=== PATIENT | female | born 1990 | race African-American/Black ===

== ENCOUNTER 2017-10-13 21:43 | Emergency (ER) | payer OTHER ==
[2017-10-13 22:03] VITALS: BMI 24.0
[2017-10-13] MEDS ORDERED: MAG HYDROX/AL HYDROX/SIMETH 30 ML UNIT-DOSE CUP PO ONE (22:28)
[2017-10-13] MEDS ORDERED: FAMOTIDINE 20 MG/50 ML IVPB 20 MG/50 ML MG IVPB ONE ×2 (22:28→23:01)
--- NOTE | 2017-10-13 22:35 | PDOC ---
History of Present Illness - History of Present Illness Initial Comments: 26 yo F with h/o substance abuse, bipolar disorder, previous psych admissions who p/w SOB. Patient reports daily intermittent spells throughout the day of SOB , globus sensation, lightheadedness, chest tightness, palpitations, diaphoresis , worse at night and worse with social stressors. Symptom onset 09/26/17 following crack/cocaine inhalation. Denies LOC,head/neck/back trauma. Denies SI/ HI. Denies F/C, N/V,orthopnea, PND, dysphagia, leg swelling/leg pain, pleuritic pain , CP, SOB, abdominal pain, diarrhea, constipation, urinary complaints, weakness , lightheadedness, sensory changes. PMHx: as noted above. Denies h/o PE/DVT. ROS: as noted above SHx: Alcohol intake beginning at age [age] years old till 03/05/17. Cannabis at 17 years old till 02/27 17. Cocaine since , till 2015. <Miguel Angel Judd - Last Filed: 10/14/17 00:11> <Pedro Owen - Last Filed: 10/14/17 02:01> - General Chief Complaint: Psychiatric Stated Complaint: S.O.B Time Seen by Provider: 10/13/17 22:25 Past History - Social History Smoking Status: Never smoked <Miguel Angel Judd - Last Filed: 10/14/17 00:11> <Pedro Owen - Last Filed: 10/14/17 02:01> - Past Medical History Allergies/Adverse Reactions: Allergies No Known Allergies Allergy (Verified 10/13/17 22:00) Home Medications: Ambulatory Orders Quetiapine Fumarate [Seroquel -] 200 mg PO HS #30 tab 03/20/17 Quetiapine Fumarate [Seroquel -] 200 mg PO HS #30 tab 03/20/17 *Review of Systems - Review of Systems Comments:: 10/13/17 22:34 GENERAL/CONSTITUTIONAL: No fever or chills. No weakness. HEAD, EYES, EARS, NOSE AND THROAT: No change in vision. No ear pain or discharge. No sore throat. CARDIOVASCULAR: No chest pain or shortness of breath RESPIRATORY: No cough, wheezing, or hemoptysis. GASTROINTESTINAL: No nausea, vomiting, diarrhea or constipation. GENITOURINARY: No dysuria, frequency, or change in urination. MUSCULOSKELETAL: No joint or muscle swelling or pain. No neck or back pain. SKIN: No rash NEUROLOGIC: No headache, vertigo, loss of consciousness, or change in strength/ sensation. ENDOCRINE: No increased thirst. No abnormal weight change HEMATOLOGIC/LYMPHATIC: No anemia, easy bleeding, or history of blood clots. ALLERGIC/IMMUNOLOGIC: No hives or skin allergy. <Miguel Angel Judd - Last Filed: 10/14/17 00:11> *Physical Exam - Vital Signs Last Vital Signs Temp Pulse Resp BP Pulse Ox 98.1 F 90 20 113/63 100 10/13/17 22:01 10/13/17 22:01 10/13/17 22:01 10/13/17 22:01 10/13/17 22:01 - Physical Exam Comments: 10/13/17 22:34 GENERAL: Awake, alert, and fully oriented, in no acute distress HEAD: No signs of trauma, normocephalic, atraumatic EYES: PERRLA, EOMI, sclera anicteric, conjunctiva clear ENT: Auricles normal inspection, hearing grossly normal, nares patent, oropharynx clear without exudates. Moist mucosa NECK: Normal ROM, supple, no lymphadenopathy, JVD, or masses LUNGS: No distress, speaks full sentences, clear to auscultation bilaterally HEART: Regular rate and rhythm, normal S1 and S2, no murmurs, rubs or gallops, peripheral pulses normal and equal bilaterally. ABDOMEN: Soft, nontender, normoactive bowel sounds. No guarding, no rebound. No masses EXTREMITIES : Normal inspection, Normal range of motion, no edema. No clubbing or cyanosis. NEUROLOGICAL: Cranial nerves II through XII grossly intact. Normal speech, normal gait, no focal sensorimotor deficits SKIN: Warm, Dry, normal turgor, no rashes or lesions noted <Miguel Angel Judd - Last Filed: 10/14/17 00:11> - Vital Signs Last Vital Signs Temp Pulse Resp BP Pulse Ox 98.1 F 90 20 113/63 100 10/13/17 22:01 10/13/17 22:01 10/13/17 22:01 10/13/17 22:01 10/13/17 22:01 <Pedro Owen - Last Filed: 10/14/17 02:01> Plan - Laboratory CBC & Chemistry Diagram: 10/14/17 00:30 10/14/17 00:30 Lab/Micro Results: 10/14/17 10/14/17 10/14/17 00:30 00:30 00:30 PT with INR 11.60 INR 1.03 Sodium 138 Potassium 3.7 Chloride 102 Carbon Dioxide 28 Anion Gap 8 BUN 12 Creatinine 0.9 Creat Clearance w eGFR > 60 Random Glucose 81 Calcium 8.9 Total Bilirubin 0.3 AST 23 ALT 24 Alkaline Phosphatase 101 Total Protein 8.3 H Albumin 4.1 TSH Urine Color Urine Appearance Urine pH Ur Specific [place] Urine Protein Urine Glucose (UA) Urine Ketones Urine Blood Urine Nitrite Urine Bilirubin Urine Urobilinogen Ur Leukocyte Esterase Urine WBC (Auto) Urine RBC (Auto) Ur Epithelial Cells Urine Mucus Urine HCG, Qual Opiates Screen Negative Methadone Screen Negative Barbiturate Screen Negative Phencyclidine Screen Negative Ur Amphetamines Screen Negative MDMA (Ecstasy) Screen Negative Benzodiazepines Screen Negative Cocaine Screen Negative U Marijuana (THC) Screen Negative 10/14/17 10/14/17 00:30 00:30 PT with INR INR Sodium Potassium Chloride Carbon Dioxide Anion Gap BUN Creatinine Creat Clearance w eGFR Random Glucose Calcium Total Bilirubin AST ALT Alkaline Phosphatase Total Protein Albumin TSH 1.76 Urine Color Yellow Urine Appearance Cloudy Urine pH 6.0 Ur Specific [place] 1.017 Urine Protein Negative Urine Glucose (UA) Negative Urine Ketones Negative Urine Blood Negative Urine Nitrite Negative Urine Bilirubin Negative Urine Urobilinogen Negative Ur Leukocyte Esterase 1+ H Urine WBC (Auto) 4 Urine RBC (Auto) 2 Ur Epithelial Cells Many Urine Mucus Rare Urine HCG, Qual Negative Opiates Screen Methadone Screen Barbiturate Screen Phencyclidine Screen Ur Amphetamines Screen MDMA (Ecstasy) Screen Benzodiazepines Screen Cocaine Screen U Marijuana (THC) Screen 10/14/17 00:30 RBC 4.29 MCV 88.6 MCHC 33.5 RDW 14.1 MPV 8.6 Neutrophils % 63.6 Lymphocytes % 28.4 Monocytes % 5.4 Eosinophils % 2.2 Basophils % 0.4 - Radiology Study(ies) Orders: Category Date Time Status CHEST PA & LAT [RAD] Stat Radiology 10/14/17 01:23 Taken - Medications Given in the ED: ED Medications Discontinued Medications Generic Name Dose Route Start Last Admin Trade Name Freq PRN Reason Stop Dose Admin Al Hydroxide/Mg Hydroxide 30 ml 10/13/17 22:28 10/13/17 22:30 Mylanta Oral Suspension - PO 10/13/17 22:29 30 ml ONCE ONE Administration Famotidine/Sodium Chloride 20 mg in 50 mls @ 100 mls/hr 10/13/17 22:28 22:30 Pepcid 20 Mg Premixed Ivpb - IVPB 10/13/17 22:57 100 mls/hr ONCE ONE Administration <Pedro Owen - Last Filed: 10/14/17 02:01> *DC/Admit/Observation/Transfer - Attestations Physician Attestion: 10/13/17 22:35 I attest to the information provided in this note. <Miguel Angel Judd - Last Filed: 10/14/17 00:11> <Pedro Owen - Last Filed: 10/14/17 02:01> Diagnosis at time of Disposition: Lightheadedness, Palpitations - Discharge Dispostion Disposition: HOME Condition at time of disposition: Stable - Referrals Referrals: Ilya Gomez MD [Staff Physician] - - Patient Instructions Printed Discharge Instructions: DI for Palpitations Additional Instructions: Activity as tolerated. Stay hydrated. Blood tests, an EKG, and a CXR showed no acute abnormalities. While anxiety might be a cause, further heart evaluations are needed. Continue your medications as previously prescribed by your physician. You should follow up with your primary doctor as soon as possible regarding today's emergency department visit. You should also see a street light mechanic for an echocardiogram and Holter monitor. Return to the emergency department for any new or concerning symptoms, particularly persistent or worsening pain or palpitations, difficulty breathing , fevers or chills, cough. Medical Decision Making - Medical Decision Making 10/13/17 23:44 26 yo F with h/o substance abuse, bipolar disorder, previous psych admissions who p/w SOB. VSS, AF, A&Ox3. Symptoms likely 2/2 anxiety related disorder, or panic disorder. Low suspicion ACS/GA or PNA. PERC NEG. Will assess for dysarrythmias, thyroid dysfunction, electrolyte abnml, toxic or metabolic derangements,acid-base disturbances, or underlying infection. ED Course: CBC, CMP, TSH, PT/INR, Cardiac Pr. EKG, CXR 10/14/17 00:11 Patient signed out to night team. Follow up labs, imaging, EKG. <Miguel Angel Judd - Last Filed: 10/14/17 00:11>
[2017-10-13] MEDS ORDERED: MAG HYDROX/AL HYDROX/SIMETH 30 ML UNIT-DOSE CUP ONE (23:01)
--- NOTE | 2017-10-14 00:19 | PDOC ---
Attending Attestation - Resident Resident Name: Celio Juddson - ED Attending Attestation I have performed the following: I have examined & evaluated the patient, The case was reviewed & discussed with the resident, I agree w/resident's findings & plan - HPI HPI: 10/14/17 00:15 26-year-old female with history of extensive crack/cocaine use presents with nonspecific symptoms of palpitations and shortness of breath ongoing for several weeks, worse in the last few days. Last crack/cocaine use was September 26, reports symptoms of palpitations with bilateral hand tingling and throat closing , admits to stressors at work, episode occurred tonight at home so she presents for evaluation. She does not have reproducible exertional chest pain or dyspnea , no recent cough, no unilateral leg swelling or cramping. No family history of early heart disease. To her knowledge, she has never had any heart injury from her crack/cocaine use. - Physicial Exam PE: 10/14/17 00:17 Vital signs are normal EKG is normal Patient is well-appearing, ambulating comfortably in the emergency Department No acute psychiatric issues Cardiopulmonary exam is normal No edema or calf tenderness - Medical Decision Making 10/14/17 00:17 26-year-old female with history of crack/cocaine use presents with nonspecific symptoms ongoing for several weeks, worse over the last few days. Presentation seems most consistent with anxiety/panic attack given the globus sensation in her throat, palpitations, hand tingling. No ACS risk factors other than her crack/cocaine use, and she has not used any since 09/26. EKG is normal Labs Chest x-ray If above is within normal limits, can be discharged to follow up with cardiology as outpatient. 10/14/17 01:57 labs wnl, including tsh and utox. pt remained well appearing throughout ED stay, CXR wnl on my prelim review. pt reassured, agrees with d/c plan to f/u with cardiology for outpt echo and holter. Understands return criteria. Heart Score/ECG Review - History History: Slightly suspicious - Electrocardiogram EKG: Normal - Age Age: </= 45 - Risk Factors Based on the list above the patient has:: No risk factors known - Troponin Troponin: </= normal limit - Score Heart Score - Total: 0 #1 ECG reviewed & interpreted by me at: 00:15 General ECG Interpretation: Sinus Rhythm, Normal Rate (79), Normal Intervals ( qtc 435), No acute ischemic changes
[2017-10-14 01:01] LABS: BASO % 0.4 % (0-2.0); EOS % 2.2 % (0-4.5); HEMOGLOBIN 12.7 GM/dL (10.7-15.3); LYMPH % 28.4 % (8-40); MCH 29.7 pg (25.7-33.7); MCHC 33.5 g/dl (32.0-36.0); MEAN CELL VOLUME 88.6 fl (80-96); MEAN PLT VOLUME 8.6 fl (7.5-11.1); MONO % 5.4 % (3.8-10.2); NEUT % 63.6 % (42.8-82.8); PLATELET COUNT 315 K/MM3 (134-434); RBC 4.29 M/mm3 (3.60-5.2); RDW 14.1 % (11.6-15.6); WHITE BLOOD COUNT 10.2 K/mm3 (4.0-10.0)
[2017-10-14 01:03] LABS: HCG,QUALITATIVE URINE NEGATIVE; URINE APPEARANCE CLOUDY; URINE BILIRUBIN NEGATIVE (<2.0 mg/dL); URINE COLOR YELLOW; URINE GLUCOSE (UA) NEGATIVE (NEGATIVE); URINE KETONE NEGATIVE (NEGATIVE); URINE NITRITE NEGATIVE (NEGATIVE); URINE PROTEIN NEGATIVE (NEGATIVE); URINE UROBILINOGEN NEGATIVE mg/dL (0.2-1.0)
[2017-10-14 01:04] LABS: URINE LEUK ESTERASE 1+ (NEGATIVE)
[2017-10-14 01:07] LABS: EPI CELLS MANY /HPF (FEW); URINE MUCUS RARE
[2017-10-14 01:15] LABS: INR 1.03 (0.82-1.09); PROTHROMBIN TIME (PATIENT) 11.6 SEC (9.7-13.0)
[2017-10-14 01:20] LABS: ALBUMIN 4.1 g/dl (3.4-5.0); ALK PHOS 101 U/L (45-117); ANION GAP 8 (8-16); BILIRUBIN,TOTAL 0.3 mg/dL (0.2-1.0); BLOOD UREA NITROGEN 12 mg/dL (7-18); CALCIUM 8.9 mg/dL (8.5-10.1); CHLORIDE 102 mmol/L (98-107); CO2 28 mmol/L (21-32); CREATININE 0.9 mg/dL (0.55-1.02); GLUCOSE,RANDOM 81 mg/dL (74-106); POTASSIUM 3.7 mmol/L (3.5-5.1); SGOT/AST 23 U/L (15-37); SGPT/ALT 24 U/L (12-78); SODIUM 138 mmol/L (136-145); TOT PROT 8.3 g/dl (6.4-8.2)
[2017-10-14 01:24] LABS: COCAINE, UR NEGATIVE ng/ml (CUTOFF=300); METHADONE, UR NEGATIVE ng/ml (CUTOFF=300); OPIATES, URI NEGATIVE ng/ml (CUTOFF=300); PHENCYCLIDINE,URINE NEGATIVE ng/ml (CUTOFF=25); URINE AMPHETAMINES NEGATIVE ng/ml (CUTOFF=500); URINE BARBITURATES NEGATIVE ng/ml (CUTOFF=200); URINE BENZODIAZEPINES NEGATIVE ng/ml (CUTOFF=200)
[2017-10-14 02:21] VITALS: BP 122/81; PULSE 71; TEMP 97.9
--- NOTE | 2017-10-14 08:56 | EKG ---
Test Reason : Blood Pressure : / mmHG Vent. Rate : 079 BPM Atrial Rate : 079 BPM P-R Int : 142 ms QRS Dur : 074 ms QT Int : 380 ms P-R-T Axes : 032 054 026 degrees QTc Int : 435 ms NORMAL SINUS RHYTHM NORMAL ECG NO PREVIOUS ECGS AVAILABLE Confirmed by LUDWIN LOPEZ, KELSIE ([id number]) on 10/14/2017 8:56:09 AM Referred By: Confirmed By:KELSIE MASCORRO MD
== END 2017-10-14 02:16 | disposition home or self-care (01) ==
LOC: JER 21:43
PROC: 3E033GC Introduction of Other Therapeutic Substance into Peripheral Vein, Percutaneous Approach (ICD-10-PCS; principal; 2017-10-13)
DX: R00.2 Palpitations (principal); R42 Dizziness and giddiness; F31.9 Bipolar disorder, unspecified; F14.10 Cocaine abuse, uncomplicated
CPT/HCPCS: 36415; 71046-TC-FY; 80053; 80307; 81003; 81015; 84443; 84703; 85025; 85610; 93005; 93010; 96365; 99282-25

== ENCOUNTER 2017-11-15 14:51 | Emergency (ER) | payer OTHER ==
[2017-11-15 15:20] VITALS: BP 105/70; PULSE 84; TEMP 98.6; BMI 23.6
--- NOTE | 2017-11-15 15:28 | PDOC ---
Rapid Medical Evaluation Time Seen by Provider: 11/15/17 15:16 Medical Evaluation: Allergies Allergy/AdvReac Type Severity Reaction Status Date / Time No Known Allergies Allergy Verified 10/13/17 22:00 I have performed a brief in-person evaluation of this patient. The patient presents with a chief complaint of: SOB since 09/26 Pertinent physical exam findings: CTAB I have ordered the following: hcg The patient will proceed to the ED for further evaluation. Discharge Disposition - Diagnosis SOB (shortness of breath) - Referrals - Patient Instructions - Post Discharge Activity
--- NOTE | 2017-11-15 16:16 | PDOC ---
History of Present Illness - General Chief Complaint: Shortness of Breath Stated Complaint: Shortness of Breath Time Seen by Provider: 11/15/17 15:16 Past History - Past Medical History Allergies/Adverse Reactions: Allergies Allergy/AdvReac Type Severity Reaction Status Date / Time No Known Allergies Allergy Verified 11/15/17 15:18 Home Medications: Ambulatory Orders NK [No Known Home Medication] 11/15/17 COPD: No Psychiatric Problems: Yes (Anxiety) - Suicide/Smoking/Psychosocial Hx Smoking History: Never smoked Have you smoked in the past 12 months: No Information on smoking cessation initiated: No Hx Alcohol Use: No Drug/Substance Use Hx: No Substance Use Type: None *Physical Exam - Vital Signs Last Vital Signs Temp Pulse Resp BP Pulse Ox 98.6 F 84 20 105/70 100 11/15/17 15:18 11/15/17 15:18 11/15/17 15:18 11/15/17 15:18 11/15/17 15:18 ED Treatment Course - ADDITIONAL ORDERS Additional order review: Laboratory Results 11/15/17 15:21 Urine HCG, Qual Negative *DC/Admit/Observation/Transfer Diagnosis at time of Disposition: SOB (shortness of breath) - Referrals - Patient Instructions - Post Discharge Activity
--- NOTE | 2017-11-15 16:35 | PDOC ---
History of Present Illness - General Chief Complaint: Shortness of Breath Stated Complaint: Shortness of Breath Time Seen by Provider: 11/15/17 15:16 History Source: Patient Exam Limitations: No Limitations - History of Present Illness Initial Comments: 11/15/17 16:26 26-year-old female presents to emergency with complaints of difficulty swallowing secondary to burning sensation stating she can't catch her breath sometimes when eating. Patient states this concerned since she used to smoke crack years ago and smokes cigarettes and unsure if she lost that. Patient denies fever, chills, left sided chest pain, weakness, or dizziness. Timing/Duration: other Severity: mild Associated Symptoms: reports: other Past History - Travel Traveled outside of the country in the last 30 days: No - Past Medical History Allergies/Adverse Reactions: Allergies Allergy/AdvReac Type Severity Reaction Status Date / Time No Known Allergies Allergy Verified 11/15/17 15:18 Home Medications: Ambulatory Orders NK [No Known Home Medication] 11/15/17 COPD: No Psychiatric Problems: Yes (Anxiety) - Suicide/Smoking/Psychosocial Hx Smoking History: Never smoked Have you smoked in the past 12 months: No Information on smoking cessation initiated: No Hx Alcohol Use: No Drug/Substance Use Hx: No Substance Use Type: None Patient Lives Alone: No Lives with/in: parents Review of Systems - Review of Systems Able to Perform ROS?: No Constitutional: No: Symptoms Reported HEENTM: Yes: Throat Pain Respiratory: No: Cough, SOB with Exertion Cardiac (ROS): No: Symptoms Reported ABD/GI: No: Symptoms Reported : No: Symptoms Reported Musculoskeletal: No: Symptoms Reported Integumentary: No: Symptoms Reported Neurological: No: Symptoms reported *Physical Exam - Vital Signs Last Vital Signs Temp Pulse Resp BP Pulse Ox 98.6 F 84 20 105/70 100 11/15/17 15:18 11/15/17 15:18 11/15/17 15:18 11/15/17 15:18 11/15/17 15:18 - Physical Exam General Appearance: Yes: Nourished, Appropriately Dressed. No: Apparent Distress HEENT: positive: TMs Normal, Pharynx Normal. negative: Pale Conjunctivae Neck: positive: Normal Thyroid, Supple Respiratory/Chest: positive: Lungs Clear, Normal Breath Sounds. negative: Chest Tender, Respiratory Distress, Accessory Muscle Use Cardiovascular: positive: Regular Rhythm, Regular Rate. negative: Murmur Gastrointestinal/Abdominal: positive: Soft. negative: Tenderness Extremity: positive: Normal Capillary Refill. negative: Pedal Edema Integumentary: positive: Normal Color, Warm, Moist Neurologic: positive: Motor Strength 5/5 (ambulatory) ED Treatment Course - ADDITIONAL ORDERS Additional order review: Laboratory Results 11/15/17 15:21 Urine HCG, Qual Negative Medical Decision Making - Medical Decision Making 11/15/17 16:35 Patient here with complaints of burning to her throat along with causing her difficulty breathing during episodes. Patient is concerned since she states she smokes cigarettes along with crack and cocaine concerning that she might of scarred her throat. Patient on exam that she had no chest tenderness as initially stated in triage. Patient exam had no reproducible pain. No erythema or discoloration of the posterior palate no adenopathy. Lungs clear. Patient will be given referral to ENT. Patient also we given a trial dose of Zantac to see if that alleviates her symptoms since she states symptoms are worse after eating and describes a burning sensation to her throat/upper midchest. *DC/Admit/Observation/Transfer Diagnosis at time of Disposition: Throat burning - Discharge Dispostion Disposition: HOME Condition at time of disposition: Good - Referrals Referrals: Jose Staples MD [Staff Physician] - - Patient Instructions Printed Discharge Instructions: DI for Gastroesophageal Reflux Disease (GERD) Additional Instructions: Please follow up with referred physician and take Zantac as prescribed. Please avoid spicy greasy food. Drink plenty of water and sit upright for half hour after meals to decrease the acid in the throat and upper chest. If symptoms do not improve despite referral and recommendations she may return to the ED. Otherwise follow up with the primary care doctor. - Post Discharge Activity
== END 2017-11-15 16:56 | disposition home or self-care (01) ==
LOC: JERFT 14:51
DX: R07.0 Pain in throat (principal)
CPT/HCPCS: 84703; 99281-25

== ENCOUNTER 2017-11-23 21:05 | Emergency (ER) | payer OTHER ==
--- NOTE | 2017-11-23 21:27 | PDOC ---
History of Present Illness - General Chief Complaint: Rash Stated Complaint: Allergic Reaction Time Seen by Provider: 11/23/17 21:27 History Source: Patient Exam Limitations: No Limitations - History of Present Illness Initial Comments: 11/23/17 21:55 Ms. Garcia is a 26 yo F with a hx of Past History - Past Medical History Allergies/Adverse Reactions: Allergies Allergy/AdvReac Type Severity Reaction Status Date / Time No Known Allergies Allergy Verified 11/23/17 21:27 Home Medications: Ambulatory Orders Famotidine [Pepcid] 20 mg PO DAILY #30 tablet 11/15/17 Budesonide/Formeterol Fumarate [SYMBICORT 160/4.5mcg -] 2 inh PO BID 11/23/17 Montelukast Sodium [Singulair] 10 mg PO DAILY 11/23/17 COPD: No Psychiatric Problems: Yes (Anxiety) - Suicide/Smoking/Psychosocial Hx Smoking History: Never smoked Have you smoked in the past 12 months: No Hx Alcohol Use: No Drug/Substance Use Hx: No Substance Use Type: None *DC/Admit/Observation/Transfer Diagnosis at time of Disposition: Shortness of breath - Discharge Dispostion Disposition: HOME Decision to Admit order: No - Referrals Referrals: Pk Oviedo MD, MD [Staff Physician] - - Patient Instructions Printed Discharge Instructions: DI for Shortness of Breath Additional Instructions: You have been diagnosed with shortness of breath of chronic nature. Chest xray did not show acute pathologies indicative of an emergency. Please follow up with your primary care doctor, your title i teacher Dr. Gordon, and our referred title i teacher Dr. Oviedo for follow up. Your care is not complete without this follow up. Please use your medications as prescribed. If your symptoms worsen or new concerning symptoms arise, please return to the emergency department immediately. - Post Discharge Activity
[2017-11-23 21:28] VITALS: BP 114/62; PULSE 82; TEMP 98.8; BMI 23.8
[2017-11-23] MEDS ORDERED: diphenhydrAMINE HCL 25 MG CAPSULE (FP) PO ONE ×2 (22:02→22:53)
[2017-11-23] MEDS ORDERED: ALBUTEROL SO4 2.5/IPRATROPIUM 0.5 INH SOL 3 ML VIAL.NEB. NEB ONE ×2 (22:02→22:53)
--- NOTE | 2017-11-23 22:47 | PDOC ---
Attending Attestation - HPI HPI: 11/23/17 22:59 The patient is a 26 year old female, with no significant past medical history, who presents to the emergency department with,shortness of breath for 2 months. The patient is currently being worked up by her PCP, Dr. Gordon, for her symptoms. He advised her to report to the ED for a chest x-ray. She reports associated chest pain and increased anxiety. The patient reports a rash on her left forearm which is itchy. She believes she acquired it sleeping in dirty areas. She recently stopped smoking crack cocaine and cigarettes 2 months ago. She denies recent fevers, chills, headache or dizziness. She denies recent nausea, vomit, diarrhea or constipation. She denies recent dysuria, frequency, urgency or hematuria. Allergies: NKA Past surgical history: None reported. Social history:Former smoker (Quit 2 months ago.) Former crack cocaine abuse ( Quit 2 months ago.) Primary Care Physician: Dr. Gordon - Physicial Exam PE: 11/23/17 22:59 GENERAL: Awake, alert, and fully oriented, in no acute distress HEAD: No signs of trauma EYES: PERRLA, EOMI, sclera anicteric, conjunctiva clear ENT: Auricles normal inspection, hearing grossly normal, nares patent, oropharynx clear without exudates. Moist mucosa NECK: Normal ROM, supple, no lymphadenopathy, JVD, or masses LUNGS: Breath sounds equal, clear to auscultation bilaterally. No wheezes, and no crackles HEART: Regular rate and rhythm, normal S1 and S2, no murmurs, rubs or gallops ABDOMEN: Soft, nontender, normoactive bowel sounds. No guarding, no rebound. No masses EXTREMITIES: Normal range of motion, no edema. No clubbing or cyanosis. No cords, erythema, or tenderness NEUROLOGICAL: Cranial nerves II through XII grossly intact. Normal speech, normal gait SKIN: Warm, Dry, normal turgor, no rashes or lesions noted. <Karl Turner - Last Filed: 11/23/17 22:59> - Resident Resident Name: Jaquan Stewart - ED Attending Attestation I have performed the following: I have examined & evaluated the patient, The case was reviewed & discussed with the resident, I agree w/resident's findings & plan, Exceptions are as noted - Medical Decision Making 11/23/17 22:45 A portion of this note was written by my scribe, under my supervision. Vital Signs Temp Pulse Resp BP Pulse Ox 98.8 F 82 18 114/62 100 11/23/17 21:10 11/23/17 21:10 11/23/17 21:10 11/23/17 21:10 11/23/17 21:10 26 year old F c/ hx prior polysubstance abuse sent in by her doctor, Dr. Gordon, for a chest xray. The patient reports 2 months of chronic SOB where she is being worked up as an outpatient. The patient has been given a prescription of symbicort, to which she has not taken. Used to smoke crack cocaine and cigarettes, but reportedly stopped prior to the incident. Denies any fevers, chills, cough, chest pain. States that she spoke to her doctor, who advised pt to go to the ER for a chest xray. Otherwise, no other acute findings. The patient is well-appearing and nontoxic. This is likely a chronic finding. Will obtain a chest xray and trial nebulizers. If the chest xray is negative, will have patient follow up as an outpatient for further management. 11/24/17 01:17 Chest xray reviewed by me, pending official radiology read. No acute changes. Will d/c patient home. <Shane Pérez - Last Filed: 11/24/17 01:18> Attestations - Attestations 11/23/17 22:59 Documentation prepared by Karl Turner, acting as medical imaging technician for Shane Pérez MD. <Karl Turner - Last Filed: 11/23/17 22:59>
== END 2017-11-24 01:54 | disposition home or self-care (01) ==
LOC: JER 21:05
PROC: 3E0F7GC Introduction of Other Therapeutic Substance into Respiratory Tract, Via Natural or Artificial Opening (ICD-10-PCS; principal; 2017-11-23)
DX: R06.02 Shortness of breath (principal); Z59.0 Homelessness
CPT/HCPCS: 71046-TC-FY; 84703; 94640; 99282-25; J7620

== ENCOUNTER 2018-02-08 18:59 | Emergency (ER) | payer OTHER ==
--- NOTE | 2018-02-08 19:01 | PDOC ---
Rapid Medical Evaluation Chief Complaint: Sore Throat Time Seen by Provider: 02/08/18 19:00 Medical Evaluation: Allergies Allergy/AdvReac Type Severity Reaction Status Date / Time No Known Allergies Allergy Verified 10/18/17 20:08 02/08/18 19:02 c/o sore throat pain since 09/26. denies fever/ chills . LMP: 10/2017. had + urine test with MD office. " I think i have a STD in my throat." denies smoking crack since 09/26 PE: patient alert ox3 ;throat clear. A: throat pain P; patient to the ER for further management of care. Discharge Disposition - Diagnosis Throat pain - Referrals - Patient Instructions - Post Discharge Activity
[2018-02-08 19:05] VITALS: BP 103/66; PULSE 58; BMI 21.5
[2018-02-08 19:06] VITALS: TEMP 98.6
[2018-02-08 20:13] LABS: HCG,QUALITATIVE URINE Positive
[2018-02-08 20:15] LABS: URINE APPEARANCE SLCLOUDY; URINE BILIRUBIN NEGATIVE (<2.0 mg/dL); URINE COLOR LTYELLOW; URINE GLUCOSE (UA) NEGATIVE (NEGATIVE); URINE KETONE NEGATIVE (NEGATIVE); URINE LEUK ESTERASE TRACE (NEGATIVE); URINE NITRITE POSITIVE (NEGATIVE); URINE PROTEIN NEGATIVE (NEGATIVE); URINE UROBILINOGEN NEGATIVE mg/dL (0.2-1.0)
--- NOTE | 2018-02-08 20:18 | PDOC ---
Attending Attestation - HPI HPI: This patient is a 27 year old female, with PMHx of dermoid cysts, who is 8 weeks , and presents to the ED for sore throat since 09/26/17. Patient states she saw her PUBLIC HOUSING MANAGER last week who confirmed that she was 8 weeks . Her doctors office also confirmed that she was positive for BV and yeast infection and negative for chlamydia and gonorrhea. She states that she has not taken her antibiotics that she was prescribed. In addition to her sore throat, she is complaining of difficulty breathing, sob, dizziness, left sided weakness and numbness. She is also complaining of foul-smelling urine. She denies recent fever, chills. Social Hx: crack cocaine (last used 09/26). Past Cigarette use. Unemployed, temporarily living with friend. Father , Mother has mental issues. - Physicial Exam PE: GENERAL: Awake, alert, and fully oriented, in no acute distress HEAD: No signs of trauma EYES: PERRLA, EOMI, sclera anicteric, conjunctiva clear LUNGS: Breath sounds equal, clear to auscultation bilaterally. No wheezes, and no crackles HEART: Regular rate and rhythm, normal S1 and S2, no murmurs, rubs or gallops ABDOMEN: Soft, nontender, normoactive bowel sounds. No guarding, no rebound. No masses EXTREMITIES: Normal range of motion, no edema. No clubbing or cyanosis. No cords, erythema, or tenderness NEUROLOGICAL: Cranial nerves II through XII grossly intact. Normal speech, normal gait SKIN: Warm, Dry, normal turgor, no rashes or lesions noted. <Arlene Interiano - Last Filed: 02/08/18 22:30> - Resident Resident Name: Katalina Esparza - ED Attending Attestation I have performed the following: I have examined & evaluated the patient, The case was reviewed & discussed with the resident, I agree w/resident's findings & plan - Medical Decision Making 02/09/18 02:14 Patient Name: AUBRIE LAWTON THIS IS A PRELIMINARY REPORT FROM IMAGING WORKFORCE STAFFING ADVISOR DATE OF SERVICE: 2018-02-09 00:33:10 IMAGES: 34 EXAM: US(SINGLE) HISTORY: Positive COMPARISON: None. FINDINGS: Enlarged anteverted gravid uterus Live single intrauterine gestation with an estimated gestational age of 10 weeks and 1 day. The heart rate is 154 bpm 3.0 cm x 2.6 and 3 x 2.5 cm hyperechoic mass within the left ovary that likely represents a dermoid cyst No evidence of ovarian torsion No free fluid THIS DOCUMENT HAS BEEN ELECTRONICALLY SIGNED 02/10/18 01:53 Pt is stable at this time. She will be asked to follow with her dual rate supervisor; she is feeling well at this time. <Florence Delarosa - Last Filed: 02/10/18 01:53>
--- NOTE | 2018-02-08 20:31 | PDOC ---
History of Present Illness - General Chief Complaint: Sore Throat Stated Complaint: Cold Symptoms Time Seen by Provider: 02/08/18 19:00 History Source: Patient Exam Limitations: No Limitations - History of Present Illness Initial Comments: 02/08/18 20:13 Pt is a 27yo f presenting to ED with complaints sore throat for the past 4 months and she found out she was 8 weeks last week. Pt said on 09/26 she smoked crack and since then she has been having sore throat, shortness of breath, heavy chest, lightheadedness, L sided weakness and numbness, abdominal pain, urinary frequency, tinnitus, subjective fevers, nausea, vomiting, cough. She also has been having malodorous vaginal discharge. Denies hematuria, vaginal bleeding, dysuria. She went to her OB last week and was told she was . She was tested for STDs and went through screening tests. 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 She has not taken her medications for BV or her yeast infection yet. She says she was negative for G/C but had it in the past. She states HIV is pending. She went to an ENT doctor 1-2 months ago and was told everything was fine. She is still sexually active and does not use protection. OB: [address] PCP: none Meds: none PMH: none PSH: none Social: denies use since 09/26 Allergies: nkda Past History - Past Medical History Allergies/Adverse Reactions: Allergies Allergy/AdvReac Type Severity Reaction Status Date / Time No Known Allergies Allergy Verified 02/08/18 19:08 Home Medications: Ambulatory Orders Albuterol Sulfate Inhaler - [Ventolin HFA Inhaler -] 1 - 2 inh PO Q4H PRN #1 inhaler 10/15/17 Nitrofurantoin Monohyd/M-Cryst [Macrobid -] 100 mg PO BID #14 capsule 02/08/18 Anemia: No Asthma: No Cancer: No Cardiac Disorders: No CVA: No COPD: No CHF: No Dementia: No Diabetes: No GI Disorders: No Disorders: No HTN: No Hypercholesterolemia: No Liver Disease: No Psychiatric Problems: Yes (hasn't taken meds in some time) Seizures: No Thyroid Disease: No - Immunization History Immunization Up to Date: Yes - Suicide/Smoking/Psychosocial Hx Smoking History: Former smoker Have you smoked in the past 12 months: Yes Number of Cigarettes Smoked Daily: 4 Information on smoking cessation initiated: No 'Breaking Loose' booklet given: 10/07/17 Hx Alcohol Use: Yes Drug/Substance Use Hx: Yes (Crack/Cocaine) Substance Use Type: Cocaine Review of Systems - Review of Systems Constitutional: Yes: See HPI HEENTM: Yes: See HPI Respiratory: Yes: See HPI Cardiac (ROS): Yes: See HPI ABD/GI: Yes: See HPI : Yes: See HPI Musculoskeletal: Yes: See HPI Integumentary: No: Rash Neurological: Yes: See HPI *Physical Exam - Vital Signs Last Vital Signs Temp Pulse Resp BP Pulse Ox 98.6 F 58 L 16 103/66 100 02/08/18 19:03 02/08/18 19:03 02/08/18 19:03 02/08/18 19:03 02/08/18 19:03 - Physical Exam General Appearance: Yes: Nourished, Appropriately Dressed. No: Apparent Distress HEENT: positive: EOMI, LALITO, TMs Normal, Pharynx Normal. negative: Pale Conjunctivae, Scleral Icterus (L) Neck: positive: Trachea midline, Supple. negative: Lymphadenopathy (R), Lymphadenopathy (L) Respiratory/Chest: positive: Lungs Clear, Normal Breath Sounds. negative: Crackles, Rales, Rhonchi, Stridor, Wheezing Cardiovascular: positive: Regular Rhythm, Regular Rate, S1, S2. negative: Edema , JVD, Murmur Vascular Pulses: Carotid (R): 2+, Carotid (L): 2+, Dorsalis-Pedis (R): 2+, Doralis-Pedis (L): 2+ Gastrointestinal/Abdominal: positive: Normal Bowel Sounds, Soft. negative: Distended, Guarding, Rebound, Tenderness Musculoskeletal: negative: CVA Tenderness Extremity: positive: Normal Capillary Refill Integumentary: positive: Normal Color, Dry, Warm Neurologic: positive: police records clerk II-XII NML intact, Fully Oriented, Alert, Normal Mood/ Affect, Normal Response, Motor Strength 5/5 ED Treatment Course - LABORATORY CBC & Chemistry Diagram: 02/08/18 20:15 02/08/18 20:15 - ADDITIONAL ORDERS Additional order review: Laboratory Results 02/08/18 20:00 Urine HCG, Qual Positive Medical Decision Making - Medical Decision Making 02/08/18 20:30 27yo f presenting with sore throat x 4 months and 8 weeks . Vitals: wnl PE: benign Symptoms have been chronic. Has gone to ENT and OB. Still has OB follow up. UA an Upreg ordered by RME. Added cbc, cmp, serum . Pt is already getting tested for STD by OB office and follows up there. will hold off on these tests for now. Pt is hemodynamically stable, clear lung sounds. Low suspicion for acute illness. 02/09/18 00:00 Called u/s-busy line 02/10/18 23:57 US normal, fhr normal. Pt has follow up. no acute pathology happeneing. can be dc home . given strict return precautions. *DC/Admit/Observation/Transfer Diagnosis at time of Disposition: Throat pain UTI (urinary tract infection) Qualifiers: Urinary tract infection type: site unspecified Hematuria presence: without hematuria Qualified Code(s): N39.0 - Urinary tract infection, site not specified - Discharge Dispostion Disposition: HOME Condition at time of disposition: Good Decision to Admit order: No - Prescriptions Prescriptions: Nitrofurantoin Monohyd/M-Cryst [Macrobid -] 100 mg PO BID #14 capsule - Referrals - Patient Instructions Printed Discharge Instructions: DI for Urinary Tract Infection (UTI) Additional Instructions: You were seen here today for evaluation of throat pain. All your tests were normal. Your urine test shows that you have a UTI. I have sent an antibiotic over to your pharmacy. Please take this medication as directed. I recommend you follow up with your dock clerk for further care during your . Remember to take your medications prescribed to you by your dock clerk for your yeast infection and BV. Come back to the emergency room if: you develop fever, your pain gets worse, you have vaginal bleeding, you feel contractions or if any new concerning symptom develops. - Post Discharge Activity
[2018-02-08 20:34] LABS: BASO % 0.5 % (0-2.0); EOS % 2.4 % (0-4.5); HEMATOCRIT 37.2 % (32.4-45.2); HEMOGLOBIN 12.2 GM/dL (10.7-15.3); LYMPH % 32.4 % (8-40); MCH 28.1 pg (25.7-33.7); MCHC 32.7 g/dl (32.0-36.0); MEAN CELL VOLUME 86.1 fl (80-96); MEAN PLT VOLUME 7.9 fl (7.5-11.1); MONO % 6.3 % (3.8-10.2); NEUT % 58.4 % (42.8-82.8); PLATELET COUNT 262 K/MM3 (134-434); RBC 4.32 M/mm3 (3.60-5.2); RDW 14.5 % (11.6-15.6); WHITE BLOOD COUNT 11.4 K/mm3 (4.0-10.0)
[2018-02-08 20:36] LABS: EPI CELLS RARE /HPF (FEW); URINE BACTERIA MANY /hpf (NONE SEEN); URINE MUCUS RARE
[2018-02-08 21:20] LABS: ALBUMIN 3.4 g/dl (3.4-5.0); ALK PHOS 75 U/L (45-117); ANION GAP 9 MMOL/L (8-16); BILIRUBIN,TOTAL < 0.1 mg/dL (0.2-1); BLOOD UREA NITROGEN 10 mg/dL (7-18); CALCIUM 9.4 mg/dL (8.5-10.1); CHLORIDE 104 mmol/L (98-107); CO2 24 mmol/L (21-32); CREATININE 0.6 mg/dL (0.55-1.3); GLUCOSE,RANDOM 79 mg/dL (74-106); SGOT/AST 12 U/L (15-37); SGPT/ALT 13 U/L (13-61); SODIUM 137 mmol/L (136-145); TOT PROT 7.2 g/dl (6.4-8.2)
[2018-02-08] MEDS ORDERED: NITROFURANTOIN MACROCRYSTAL 50 MG CAPSULE (FP) PO SCH (21:45)
[2018-02-08] MEDS ORDERED: NITROFURANTOIN MACROCRYSTAL 50 MG CAPSULE (FP) ONE (21:54)
== END 2018-02-09 01:25 | disposition home or self-care (01) ==
LOC: MERGE 18:59 → JER 18:59
DX: O26.891 Other specified pregnancy related conditions, first trimester (principal); J02.9 Acute pharyngitis, unspecified; O23.31 Infections of other parts of urinary tract in pregnancy, first trimester; O99.89 Other specified diseases and conditions complicating pregnancy, childbirth and the puerperium; D27.1 Benign neoplasm of left ovary; Z3A.10 10 weeks gestation of pregnancy
CPT/HCPCS: 36415; 76801-TC; 80053; 81003; 81015; 84702; 84703; 85025; 87086; 87186; 99282-25

== ENCOUNTER 2018-07-10 15:30 | Emergency (ER) | payer OTHER ==
--- NOTE | 2018-07-10 15:40 | PDOC ---
Rapid Medical Evaluation Time Seen by Provider: 07/10/18 15:39 Medical Evaluation: Allergies Allergy/AdvReac Type Severity Reaction Status Date / Time No Known Allergies Allergy Verified 07/10/18 15:38 07/10/18 15:39 I have performed a brief in-person evaluation of this patient. The patient presents with a chief complaint of: anxiety- 7 months Pertinent physical exam findings: gravid abdomen. I have ordered the following: nothing The patient will proceed to the ED for further evaluation. Discharge Disposition - Diagnosis Anxiety - Referrals - Patient Instructions - Post Discharge Activity
[2018-07-10 15:41] VITALS: BP 109/66; PULSE 106; TEMP 98.3; BMI 22.8
--- NOTE | 2018-07-10 20:10 | PDOC ---
*Physical Exam - Vital Signs Last Vital Signs Temp Pulse Resp BP Pulse Ox 98.3 F 106 H 18 109/66 100 07/10/18 15:38 07/10/18 15:38 07/10/18 15:38 07/10/18 15:38 07/10/18 15:38 Medical Decision Making - Medical Decision Making 07/10/18 20:10 Patient seen by the advanced practice provider under my direct supervision. Ancillary testing reviewed as necessary. I agree with plan as outlined by the advanced practice provider. *DC/Admit/Observation/Transfer Diagnosis at time of Disposition: Anxiety - Referrals - Patient Instructions - Post Discharge Activity
--- NOTE | 2018-07-10 20:58 | PDOC ---
History of Present Illness - General Chief Complaint: Vaginal Sxs Stated Complaint: ANIXETY Time Seen by Provider: 07/10/18 15:39 History Source: Patient Exam Limitations: No Limitations Past History - Past Medical History Allergies/Adverse Reactions: Allergies Allergy/AdvReac Type Severity Reaction Status Date / Time No Known Allergies Allergy Verified 07/10/18 15:38 Home Medications: Ambulatory Orders NK [No Known Home Medication] 07/10/18 Anemia: No Asthma: No Cancer: No Cardiac Disorders: No CVA: No COPD: No CHF: No Dementia: No Diabetes: No GI Disorders: No Disorders: No HTN: No Hypercholesterolemia: No Liver Disease: No Psychiatric Problems: Yes (hasn't taken meds in some time) Seizures: No Thyroid Disease: No - Immunization History Immunization Up to Date: Yes - Suicide/Smoking/Psychosocial Hx Smoking History: Never smoked Have you smoked in the past 12 months: Yes Number of Cigarettes Smoked Daily: 4 'Breaking Loose' booklet given: 10/07/17 Hx Alcohol Use: No Drug/Substance Use Hx: No Substance Use Type: None, Cocaine *Physical Exam - Vital Signs Last Vital Signs Temp Pulse Resp BP Pulse Ox 98.3 F 106 H 18 109/66 100 07/10/18 15:38 07/10/18 15:38 07/10/18 15:38 07/10/18 15:38 07/10/18 15:38 - Physical Exam General Appearance: No: Apparent Distress Respiratory/Chest: positive: Lungs Clear, Normal Breath Sounds. negative: Respiratory Distress Cardiovascular: positive: Regular Rhythm, Regular Rate, S1, S2. negative: Murmur Gastrointestinal/Abdominal: positive: Soft, Other (Gravid uterus) Extremity: negative: Pedal Edema, Calf Tenderness Integumentary: positive: Normal Color Neurologic: positive: Alert, Normal Mood/Affect Moderate Sedation - Procedure Monitoring Vital Signs: Procedure Monitoring Vital Signs Temperature 98.3 F 07/10/18 15:38 Pulse Rate 106 H 07/10/18 15:38 Respiratory Rate 18 07/10/18 15:38 Blood Pressure 109/66 07/10/18 15:38 O2 Sat by Pulse Oximetry (%) 100 07/10/18 15:38 Medical Decision Making - Medical Decision Making 27 y/o F with no sig pmh, currently around 7 months , presents as having congestion, occasional chest tightness, SOB, cough over the past 8-9 months. Patient has been in ED prior for similar symptoms. States sometimes getting into arguments and general stress of things going on in her life will trigger her symptoms. Patient quit smoking around 1 year ago but states only smoked occasionally in the past. Denies drug use. Denies fever, abd pain, vaginal bleeding, unusual vag discharge, urinary complaints. Patient has f/u for her and last saw her CHIEF CRNA last week. Given chronicity of symptoms, not suspicious for ACS or PE Could likely be component of anxiety Also physiologic in nature given 7 months Stable for discharge 07/10/18 20:53 *DC/Admit/Observation/Transfer Diagnosis at time of Disposition: Anxiety - Discharge Dispostion Disposition: HOME Condition at time of disposition: Stable Decision to Admit order: No - Referrals - Patient Instructions Printed Discharge Instructions: DI for Anxiety -- Adult, Managing Symptoms of Additional Instructions: Thank you for choosing [facility]. It was a pleasure taking care of you. Likely your symptoms could be related to your and some component of anxiety as well Follow-up with your PCP in 2-3 days. Return to the Emergency Department if your symptoms worsen or persist or have other concerning symptoms. - Post Discharge Activity
== END 2018-07-10 21:37 | disposition home or self-care (01) ==
LOC: JER 15:30
DX: O99.343 Other mental disorders complicating pregnancy, third trimester (principal); F41.8 Other specified anxiety disorders; Z3A.28 28 weeks gestation of pregnancy
CPT/HCPCS: 99282-25

== ENCOUNTER 2018-08-20 13:21 | Emergency (ER) | payer OTHER ==
[2018-08-20 13:28] VITALS: BMI 28.3
[2018-08-20 15:01] VITALS: BP 112/66; PULSE 106; TEMP 98.3
[2018-08-20] MEDS ORDERED: DEXTROSE 5%-LACTATED RINGERS 500 ML IV ONE ×2 (15:30→16:30)
== END 2018-08-20 17:45 | disposition home or self-care (01) ==
LOC: JER 13:21
DX: O26.893 Other specified pregnancy related conditions, third trimester (principal); R10.9 Unspecified abdominal pain; Y04.0XXA Assault by unarmed brawl or fight, initial encounter; Y93.89 Activity, other specified; Y92.39 Other specified sports and athletic area as the place of occurrence of the external cause; Y99.8 Other external cause status; Z3A.36 36 weeks gestation of pregnancy
CPT/HCPCS: 99281-25

== ENCOUNTER 2019-10-21 19:37 | Emergency (ER) | payer OTHER ==
[2019-10-21 19:47] VITALS: BP 99/60; PULSE 76; TEMP 98.6; BMI 23.6
== END 2019-10-21 20:23 | disposition home or self-care (01) ==
LOC: JER 19:37
DX: N85.9 Noninflammatory disorder of uterus, unspecified (principal)
CPT/HCPCS: 99282-25

== ENCOUNTER 2019-10-27 11:34 | Emergency (ER) | payer OTHER ==
--- NOTE | 2019-10-27 11:45 | PDOC ---
Rapid Medical Evaluation Time Seen by Provider: 10/27/19 11:40 Medical Evaluation: Allergies Allergy/AdvReac Type Severity Reaction Status Date / Time No Known Allergies Allergy Verified 10/27/19 11:40 10/27/19 11:41 CC: peroxide rectal cleanse to lose weight 4 days ago then started with rectal pain and bleeding while pushing while having a BM. Exam: vss, deferred rectal exam Plan: cbc? Discharge Disposition - Diagnosis Rectal pain - Referrals - Patient Instructions - Post Discharge Activity
[2019-10-27 11:46] VITALS: BMI 22.8
--- NOTE | 2019-10-27 13:44 | PDOC ---
History of Present Illness - General Chief Complaint: Bleeding from Anus Stated Complaint: RECTAL BLEEDING Time Seen by Provider: 10/27/19 11:40 History Source: Patient Exam Limitations: No Limitations - History of Present Illness Travel History: No Initial Comments: 10/27/19 12:54 HISTORY OF PRESENT ILLNESS: 28-year-old woman denies medical history presents emergency department for evaluation of bleeding from her rectum which occurred starting 2 days ago. Patient reports frequent manipulation of her rectum and using multiple liquid ingredients including hydrogen peroxide, lemon juice, isopropyl alcohol and water. Patient reports she has prolonged history of constipation and has a usual bowel frequency of approximately every 2 weeks. Patient's last normal bowel movement was 2 days ago. Patient reports the pain and bleeding gets worse when she strains down to try to move her bowels or passed flatus. Patient was noncommittal when asked about rectal penetration either sexually or with instruments. Additionally patient reports having rosales prapubic pain but denies any urinary symptoms. No recent travel or sick contacts. PAST MEDICAL HISTORY: Denies past medical history SURGICAL HISTORY: Denies ALLERGIES: No known drug allergies REVIEW OF SYSTEMS General/Constitutional: Denies fever or chills. Denies weakness, weight change. HEENT: Denies change in vision. Denies ear pain or discharge. Denies sore throat. Cardiovascular: Denies chest pain or shortness of breath. Respiratory: Denies cough, wheezing, or hemoptysis. Gastrointestinal: See HPI Genitourinary: Denies dysuria, frequency, or change in urination. Musculoskeletal: Denies joint or muscle swelling or pain. Denies neck or back pain. Skin and breasts: Denies rash or easy bruising. Neurologic: Denies headache, vertigo, loss of consciousness, or loss of sensation. Psychiatric: Denies depression or anxiety. Endocrine: Denies increased thirst. Denies abnormal weight change. Hematologic/Lymphatic: Denies anemia, easy bleeding, or history of blood clots. Allergic/Immunologic: Denies hives or skin allergy. Denies latex allergy. PHYSICAL EXAM General Appearance: Well-appearing, appropriately dressed. No apparent distress, no intoxication. Gastrointestinal/Abdominal: Hypoactive bowel sounds. Abdomen soft, non- distended. Tenderness to the suprapubic area and rlq . No organomegaly, pulsatile mass, guarding, hernia, hepatomegaly, splenomegaly. Rectal: skin tag noted at 6oclock position, no palpable masses or stool, brown stool noted on finger after examination, guiac collected Integumentary: Appropriate color, dry, warm. No cyanosis, erythema, jaundice or rash Past History - Medical History Allergies/Adverse Reactions: Allergies Allergy/AdvReac Type Severity Reaction Status Date / Time No Known Allergies Allergy Verified 10/27/19 11:40 Home Medications: Ambulatory Orders NK [No Known Home Medication] 10/27/19 Anemia: No Asthma: No Cancer: No Cardiac Disorders: No CVA: No COPD: No CHF: No Dementia: No Diabetes: No GI Disorders: No Disorders: No HTN: No Hypercholesterolemia: No Liver Disease: No Psychiatric Problems: Yes (BIPOLAR hasn't taken meds in some time) Seizures: No Thyroid Disease: No - Reproductive History (#): 1 Cervical CA: No Dysfunctional Uterine Bleeding: No Ectopic : No Endometrial CA: No Polycystic Ovaries: No Tubal Ligation: No - Immunization History Td Vaccination: Yes TDAP Vaccination: Yes Immunization Up to Date: Yes - Psycho-Social/Smoking History Smoking History: Never smoked Have you smoked in the past 12 months: Yes Number of Cigarettes Smoked Daily: 4 'Breaking Loose' booklet given: 10/07/17 - Substance Abuse Hx (Audit-C & DAST Scrn) How often the patient has a drink containing alcohol: Never Score: In Men: 4 or > Positive; In Women: 3 or > Positive: 0 Screen Result (Pos requires Nsg. Audit-10AR): Negative In the last yr the pt used illegal drug/Rx for NonMed reason: No Score: Yes response is considered Positive: 0 Screen Result (Positive result requires Nsg. DAST-10): Negative *Physical Exam - Vital Signs Last Vital Signs Temp Pulse Resp BP Pulse Ox 88 18 104/60 100 10/27/19 11:42 10/27/19 11:42 10/27/19 11:42 10/27/19 11:42 ED Treatment Course - LABORATORY CBC & Chemistry Diagram: 10/27/19 13:50 10/27/19 13:50 - RADIOLOGY Radiology Studies Ordered: Category Date Time Status ABDOMEN & PELVIS CT WITH CONTR [CT] Stat CT Scan 10/27/19 12:48 Ordered Medical Decision Making - Medical Decision Making 10/27/19 13:44 28 y/o female presents today with rectal bleeding Tenderness to suprapubic area and rlq skin tag noted at 6 oclock with anal excoriation during rectal exam No active bleeding present, no blood noted on finger after rectal exam Differential diagnosis includes, anal escoriation,infection, sigmoid perforat ion, diverticulitis, appendicitis, obstruction, ileus LABS UA/CULTURE/UPT CT SCAN ABDOMEN/PELVIS WITH PO CONTRAST STOOL GUIAC REASSESS 10/27/19 20:51 CT scan of the abdomen and pelvis is read by Dr. Gonzales: There is probable concentric rectal wall edema suggestive of acute colitis. Possible minimal subtle concentric wall thickening is noted along the descending colon. 4.4 x 3 cm left adnexal dermoid cyst. A small amount of pelvic free fluid is seen. Colitis is likely due to frequent installation of hydrogen peroxide, isopropyl alcohol and acidic juices to help stimulate bowels. I will defer antibiotic treatment at this time as there is no infectious etiology suspected. Nonpharmacological bowel management techniques have been discussed with the patient and patient has been given a referral for GI. I discussed the physical exam findings, ancillary test results and final diagnoses with the patient. I answered all of the patient's questions. The patient was satisfied with the care received and felt comfortable with the discharge plan and treatment plan. The patient will call their primary care physician within 24 hours to arrange follow-up and will return to the Emergency Department with any new, persistent or worsening symptoms. Portions of this note have been documented using voice recognition software. As a result, errors may occur in the extrusion technician process. Effort has been made to correct all grammatical and extrusion technician error, but some may have been missed which may produce sporadic inaccurate extrusion technician or nonsensical phrases. Discharge - Discharge Information Problems reviewed: Yes Clinical Impression/Diagnosis: Colitis Condition: Fair Disposition: HOME - Admission No - Follow up/Referral Referrals: Pk Guerra [Primary Care Provider] - Ovidio Menjivar MD [Staff Physician] - - Patient Discharge Instructions Additional Instructions: Rest, drink lots of fluids: Teas, water, soups Stop using enemas. Drink plenty of water. Eat a diet high in fiber. Continue [id number] medications for symptomatic relief Tylenol or Motrin for fever and pain Followup with private physician in one to 2 days as needed Return to emergency department for worsened symptoms, fevers, dehydration - Post Discharge Activity
[2019-10-27 14:22] LABS: BASO % 0.5 % (0-2.0); EOS % 2.2 % (0-4.5); HEMATOCRIT 35.7 % (32.4-45.2); HEMOGLOBIN 11.6 GM/dL (10.7-15.3); LYMPH % 42.5 % (8-40); MCH 28.5 pg (25.7-33.7); MCHC 32.6 g/dl (32.0-36.0); MEAN CELL VOLUME 87.3 fl (80-96); MEAN PLT VOLUME 8.9 fl (7.5-11.1); MONO % 5.2 % (3.8-10.2); NEUT % 49.6 % (42.8-82.8); PLATELET COUNT 263 K/MM3 (134-434); RBC 4.08 M/mm3 (3.60-5.2); WHITE BLOOD COUNT 7.8 K/mm3 (4.0-10.0)
[2019-10-27 14:37] LABS: INR 1.11 (0.83-1.09); PROTHROMBIN TIME (PATIENT) 13.1 SEC (9.7-13.0)
[2019-10-27 14:48] LABS: ALBUMIN 3.9 g/dl (3.4-5.0); BILIRUBIN,TOTAL 0.7 mg/dL (0.2-1); CALCIUM 8.9 mg/dL (8.5-10.1); CREATININE 0.9 mg/dL (0.55-1.3); POTASSIUM 3.9 mmol/L (3.5-5.1); TOT PROT 7.5 g/dl (6.4-8.2)
[2019-10-27 15:09] LABS: PH,URINE 6.5 (5.0-8.0); URINE APPEARANCE CLEAR; URINE BILIRUBIN NEGATIVE (NEGATIVE); URINE COLOR YELLOW; URINE GLUCOSE (UA) NEGATIVE (NEGATIVE); URINE KETONE TRACE (NEGATIVE); URINE LEUK ESTERASE NEGATIVE (NEGATIVE); URINE NITRITE NEGATIVE (NEGATIVE); URINE PROTEIN NEGATIVE (NEGATIVE); URINE UROBILINOGEN 0.2 mg/dL (0.2-1.0)
[2019-10-27 21:14] VITALS: BP 116/73; PULSE 76
== END 2019-10-27 21:12 | disposition home or self-care (01) ==
LOC: JERFT 11:34
DX: K52.9 Noninfective gastroenteritis and colitis, unspecified (principal)
CPT/HCPCS: 36415; 74177-TC; 80053; 81003; 82272; 84703; 85025; 85610; 86850; 86900; 86901; 87077; 87086; 99285-25; Q9967

== ENCOUNTER 2019-10-30 15:16 | Emergency (ER) | payer OTHER ==
[2019-10-30 15:23] VITALS: BP 98/63; PULSE 65; TEMP 98.4; BMI 22.8
--- NOTE | 2019-10-30 15:23 | PDOC ---
Rapid Medical Evaluation Chief Complaint: Constipation Time Seen by Provider: 10/30/19 15:21 Medical Evaluation: Allergies Allergy/AdvReac Type Severity Reaction Status Date / Time No Known Allergies Allergy Verified 10/27/19 11:40 10/30/19 15:22 CC: feels constipated,. states since ED visit has not had a bm, dxd with colitis Exam: vss, abd nondistended Plan: kub Discharge Disposition - Diagnosis Constipation - Referrals - Patient Instructions - Post Discharge Activity
--- NOTE | 2019-10-30 15:31 | PDOC ---
History of Present Illness - General Chief Complaint: Constipation Stated Complaint: RECTAL BLEED Time Seen by Provider: 10/30/19 15:21 - History of Present Illness Initial Comments: 10/30/19 17:13 28 YOF h/o colitis and unspecified psychiatric history presenting with constipation, urinary retention and rectal bleeding. Patient reports that constipation and urinary retention has been ongoing for past 2 weeks and rectal bleeding for 5 days. She mentions that she uses laxatives as well as enemas of various composition including hydrogen peroxide, lemon juice and alcohol in order to relieve her constipation with limited effectiveness. She also reports abdominal pain and bloating. Denies CP, SOB, N/V/D, fever or chills. She was seen in the [facility] ED on 10/27/19 for similar symptoms. At this time she received abdominal CT which was remarkable for colitis and advised to / with primary care/ GI as an outpatient. She was also seen on 10/29/19 at [facility] for current sxs. At this time she received CBC, BMP, UA, and test all of which were unremarkable. She was discharged to / with [facility] which she says she did but was unable to schedule an appointment that satisfied the urgency with which she wanted to be seen. 10/31/19 16:45 Past History - Travel History Traveled outside of the country in the last 30 days: No Close contact w/someone who was outside of country & ill: No - Medical History Allergies/Adverse Reactions: Allergies Allergy/AdvReac Type Severity Reaction Status Date / Time No Known Allergies Allergy Verified 10/30/19 15:23 Home Medications: Ambulatory Orders NK [No Known Home Medication] 10/27/19 Anemia: No Asthma: No Cancer: No Cardiac Disorders: No CVA: No COPD: No CHF: No Dementia: No Diabetes: No GI Disorders: No Disorders: No HTN: No Hypercholesterolemia: No Liver Disease: No Psychiatric Problems: Yes (BIPOLAR hasn't taken meds in some time) Seizures: No Thyroid Disease: No - Reproductive History (#): 1 Cervical CA: No Dysfunctional Uterine Bleeding: No Ectopic : No Endometrial CA: No Polycystic Ovaries: No Tubal Ligation: No - Immunization History Td Vaccination: Yes TDAP Vaccination: Yes Immunization Up to Date: Yes - Psycho-Social/Smoking History Smoking History: Never smoked Have you smoked in the past 12 months: Yes Number of Cigarettes Smoked Daily: 4 'Breaking Loose' booklet given: 10/07/17 - Substance Abuse Hx (Audit-C & DAST Scrn) How often the patient has a drink containing alcohol: Never Score: In Men: 4 or > Positive; In Women: 3 or > Positive: 0 Screen Result (Pos requires Nsg. Audit-10AR): Negative Review of Systems - Review of Systems Able to Perform ROS?: Yes Constitutional: Yes: Loss of Appetite. No: Chills, Diaphoresis, Fever, Night Sweats, Weakness Cardiac (ROS): Yes: Chest Pain ABD/GI: Yes: Abdominal Distended, Abd. Pain w/ defecation, Constipated, Rectal Bleeding : Yes: Burning, Dysuria, Discharge, Frequency Psychiatric: Yes: Anxiety, Depression *Physical Exam - Vital Signs Last Vital Signs Temp Pulse Resp BP Pulse Ox 98.4 F 65 18 98/63 99 10/30/19 15:19 10/30/19 15:19 10/30/19 15:19 10/30/19 15:19 10/30/19 15:19 - Physical Exam General Appearance: Yes: Nourished HEENT: positive: LALITO, Normal ENT Inspection, Normal Voice, Symmetrical Neck: positive: Trachea midline, Normal Thyroid, Rigid, Supple Respiratory/Chest: positive: Lungs Clear, Normal Breath Sounds Cardiovascular: positive: Regular Rhythm, Regular Rate, S1, S2 Gastrointestinal/Abdominal: positive: Tender, Soft Medical Decision Making - Medical Decision Making 28 y/o female h/o colitis presents with rectal bleeding, constipation, and urinary retention. Patient has been in two separate EDs over past week for same issue. Has been advised to F/U as outpatient but continues to present to the ED. Patient reports pain on palpation of suprapubic area and rlq. Differential includes anal excoriations and colitis. Will perform rectal exam, basic labs, ucg, and bladder scan. Will give magnesium sulfate and miralax for sxs. Reassess US of abdomen reveals 32 ML of fluid in bladder. No signs of intra abdominal fluid. CXR unrevealing of significant stool burden. Rectal exam significant for small excoriation. No active bleeding present, no blood noted on finger after rectal exam. Skin tag noted at 6 oclock with anal excoriation during rectal exam. Colitis remains most likely etiology of current symptoms given reported injection of hydrogen peroxide, lemon juice and alcohol into the anus. Patient has been given a referral for GI. Dispo: Will d/c patient for FU with GI Discharge - Discharge Information Problems reviewed: Yes Clinical Impression/Diagnosis: Constipation Disposition: HOME - Follow up/Referral Referrals: Vasile Griffin MD [Staff Physician] - Florentino Escalera MD [Staff Physician] - - Patient Discharge Instructions Patient Printed Discharge Instructions: Constipation Additional Instructions: you need to follow up with a clothing and textiles teacher. see referral for dr Escalera, call to schedule followup appointment. return for any problems or concerns. - Post Discharge Activity
--- NOTE | 2019-10-30 16:37 | PDOC ---
Documentation entered by Karl Turner SCRIBE, acting as scribe for Cornelia Martinez MD. Cornelia Martinez MD: This documentation has been prepared by the Deandre dupree Nirvannie, SCRIBE, under my direction and personally reviewed by me in its entirety. I confirm that the documentation accurately reflects all work, treatment, procedures, and medical decision making performed by me. Attending Attestation - Resident Resident Name: Nixon Mandel - ED Attending Attestation I have performed the following: I have examined & evaluated the patient, The case was reviewed & discussed with the resident, I agree w/resident's findings & plan, Exceptions are as noted - HPI HPI: 10/30/19 16:09 The patient is a 28 year old female with a significant past medical history of constipation, here with c/o constipation. Per EMR, the patient was evaluated with similar symptoms 10/26. Patient notes she still has not had a BM, prompting her arrival to the ED. at that time on prior evaluation, pt reported mulitple enema attempts with alcohol, hydrogen peroxide and lemon juice. had ct a/p at that evlaluation, showed rectal wall edema. otherwise unremarkable. no n/v no abd pain. Allergies: NKDA 10/30/19 16:31 - Physicial Exam PE: 10/30/19 16:34 awake alert lungs clear bilat heart rrr no mrg abd soft nt nd no palp masses. ext wwp. no edema. - Medical Decision Making 10/30/19 16:35 28 yo F with c/o constipation, here with requesting for enema. pt has given herself several enemas at home. no n/vno abd pain or tenderness. pt states she was in [place] yesterday. called [facility], state pt refused imaging at that time, dc to home. will given miralax, mg citrate, and fu with GI for possible cholitis, or chrons, however based on history likely inflammation secondary to enema use at home. therefore no enema given here in ED. 10/30/19 16:37 melisa obtain ucg r/o 10/30/19 17:06 negative on 10/2610/30/19 17:46 pt rectal exam performed with dr Mandel present, no stool in rectum. xray abd no large stool. bladder scan 30 mL. no retention. given fu mary CABRERA and [facility]. Discharge - Discharge Information Problems reviewed: Yes Clinical Impression/Diagnosis: Constipation Disposition: HOME - Admission No - Follow up/Referral Referrals: Florentino Escalera MD [Staff Physician] - Vasile Griffin MD [Staff Physician] - - Patient Discharge Instructions Patient Printed Discharge Instructions: Constipation Additional Instructions: you need to follow up with a stadium attendant. see referral for dr Escalera, call to schedule followup appointment. return for any problems or concerns. - Post Discharge Activity
[2019-10-30] MEDS ORDERED: POLYETHYLENE GLYCOL 3350 119 GM BTL PO ONE (17:05)
[2019-10-30] MEDS ORDERED: MAGNESIUM CITRATE 300 ML BOTTLE PO ONE (17:05)
[2019-10-30] MEDS ORDERED: MAGNESIUM CITRATE 300 ML BOTTLE ONE (17:57)
== END 2019-10-30 18:02 | disposition home or self-care (01) ==
LOC: JER 15:16
DX: K59.00 Constipation, unspecified (principal)
CPT/HCPCS: 74018-TC-FY; 99283-25

== ENCOUNTER 2020-01-08 16:05 | Emergency (ER) | payer OTHER ==
[2020-01-08 16:26] VITALS: BP 99/58; PULSE 83; TEMP 98.1; BMI 22.3
--- NOTE | 2020-01-08 16:53 | PDOC ---
History of Present Illness - General Chief Complaint: Rash Stated Complaint: WOUND Time Seen by Provider: 01/08/20 16:42 History Source: Patient Exam Limitations: No Limitations - History of Present Illness Initial Comments: 01/08/20 16:55 Patient is a 29-year-old female with no past medical history who presents to the ED with concerns of a rash to her right distal mayer that she has had for the last 1 month. She states her primary doctor has treated her with multiple creams which have not been helping her. She states the creams were for a fungal rash but she wants to be treated for ringworm. The patient denies any fevers or chills. She states the area is very itchy. She denies any drainage. She has not seen dermatology. Past History - Medical History Allergies/Adverse Reactions: Allergies Allergy/AdvReac Type Severity Reaction Status Date / Time No Known Allergies Allergy Verified 01/08/20 16:26 Home Medications: Ambulatory Orders NK [No Known Home Medication] 10/27/19 Anemia: No Asthma: No Cancer: No Cardiac Disorders: No CVA: No COPD: No CHF: No Dementia: No Diabetes: No GI Disorders: No Disorders: No HTN: No Hypercholesterolemia: No Liver Disease: No Psychiatric Problems: Yes (BIPOLAR hasn't taken meds in some time) Seizures: No Thyroid Disease: No - Reproductive History Is Patient Now?: No (#): 1 Cervical CA: No Dysfunctional Uterine Bleeding: No Ectopic : No Endometrial CA: No Polycystic Ovaries: No Tubal Ligation: No - Immunization History Td Vaccination: Yes TDAP Vaccination: Yes Immunization Up to Date: Yes - Psycho-Social/Smoking History Smoking History: Never smoked Have you smoked in the past 12 months: No Number of Cigarettes Smoked Daily: 4 Information on smoking cessation initiated: No 'Breaking Loose' booklet given: 10/07/17 - Substance Abuse Hx (Audit-C & DAST Scrn) How often the patient has a drink containing alcohol: Never Score: In Men: 4 or > Positive; In Women: 3 or > Positive: 0 Screen Result (Pos requires Nsg. Audit-10AR): Negative In the last yr the pt used illegal drug/Rx for NonMed reason: No Score: Yes response is considered Positive: 0 Screen Result (Positive result requires Nsg. DAST-10): Negative Review of Systems - Review of Systems Comments:: 01/08/20 16:56 - Review of Systems Able to Perform ROS?: Yes Constitutional: No: Fever, Chills, Loss of Appetite, Night Sweats, Weakness HEENTM: No: Eye Pain, Vision changes, Ear Pain, Throat Pain, Throat Swelling, Mouth Pain, Difficulty Swallowing Respiratory: No: Cough, Shortness of Breath, Wheezing, Sputum Production Cardiac (ROS): No: Chest Pain, Chest Tightness, Palpitations, Irregular Heart Beat, Edema ABD/GI: No: Nausea, Vomiting, Abdominal Pain, Diarrhea : No Dysuria, No Hematuria, No Frequency, No Urgency Musculoskeletal: No: Muscle Pain, Back Pain, Joint Pain, Muscle Weakness, Neck Pain Integumentary: No: Lesions, positive: Rash to the right distal mayer Neurological: No: Headache, Numbness, Tingling, Weakness, Speech Difficulties *Physical Exam - Vital Signs Last Vital Signs Temp Pulse Resp BP Pulse Ox 98.1 F 83 18 99/58 L 100 01/08/20 16:23 01/08/20 16:23 01/08/20 16:23 01/08/20 16:23 01/08/20 16:23 - Physical Exam 01/08/20 16:57 - Physical Exam General Appearance: Nourished, Appropriately Dressed, No Distress HEENT: EOMI, Normal Voice, Hearing Grossly Normal Neck: Supple, No Lymphadenopathy (R), No Lymphadenopathy (L), No Rigidity, No Decreased range of motion Respiratory/Chest: Lungs Clear, Normal Breath Sounds. No Respiratory Distress, No Accessory Muscle Use Cardiovascular: Regular Rhythm, Regular Rate, S1, S2 Musculoskeletal: Normal Inspection. No Decreased Range of Motion Extremity: Normal Capillary Refill, Normal Inspection Integumentary: Normal Color, Dry. Area of hypopigmentation to the right distal mayer. Not raised. No tenderness to palpation. No vesicles appreciated. No drainage. Neurologic: brilliandeer looper II-XII NML intact, Fully Oriented, Alert, Normal Mood/Affect, Normal Response Medical Decision Making - Medical Decision Making 01/08/20 16:49 Assessment: Patient is a 29-year-old female with an undetermined rash to the anterior mayer that has been treated for the last 1 month with multiple creams by her primary doctor. Plan: I have made the patient aware that her rash does not appear to be fungal and we will refer her to dermatology for further evaluation. At this time, I will hold off on prescribing her any other medications for this rash until she sees dermatology. She understands and agrees with this treatment plan and she is stable for discharge. Discharge - Discharge Information Problems reviewed: Yes Clinical Impression/Diagnosis: Rash and nonspecific skin eruption Condition: Stable Disposition: HOME - Follow up/Referral Referrals: Pk Guerra [Primary Care Provider] - Call tomorrow Jazmine Salgado MD [Staff Physician] - 3 days - Patient Discharge Instructions Patient Printed Discharge Instructions: How to Perform a Skin Exam Additional Instructions: You have an undetermined skin rash that has been treated for the last 1 month. You should follow-up with dermatology, Dr. Salgado, for further evaluation and treatment. - Post Discharge Activity Work/Back to School Note: Back to Work
== END 2020-01-08 17:01 | disposition home or self-care (01) ==
LOC: JERFT 16:05
DX: R21 Rash and other nonspecific skin eruption (principal)
CPT/HCPCS: 99282-25

== ENCOUNTER 2020-01-22 13:28 | Emergency (ER) | payer OTHER ==
[2020-01-22 13:53] VITALS: BP 99/57; PULSE 77; TEMP 98.6; BMI 21.2
[2020-01-22] MEDS ORDERED: TETRACAINE 0.5% HCL 0.6ML DROPPER.BOTTLE OS ONE (13:57)
[2020-01-22] MEDS ORDERED: FLUORESCEIN NA 1 EA STRIP OS ONE (13:57)
[2020-01-22] MEDS ORDERED: TETRACAINE 0.5% OPHTH SOLN 2 ML BOTTLE ONE (13:58)
[2020-01-22] MEDS ORDERED: FLUORESCEIN NA 1 EA STRIP ONE (13:58)
--- NOTE | 2020-01-22 14:17 | PDOC ---
History of Present Illness - General Chief Complaint: Foreign Body (FB) Stated Complaint: EYE INJURY Time Seen by Provider: 01/22/20 13:49 History Source: Patient Exam Limitations: No Limitations Past History - Travel History Traveled outside of the country in the last 30 days: No Close contact w/someone who was outside of country & ill: No - Medical History Allergies/Adverse Reactions: Allergies Allergy/AdvReac Type Severity Reaction Status Date / Time No Known Allergies Allergy Verified 01/22/20 13:44 Home Medications: Ambulatory Orders Erythromycin 0.5% Eye Ointment [Erythromycin 0.5% Eye Ointment -] 1 applic OS TID #1 tube 01/22/20 Peg 400/Hypromellose/Glycerin [Dry Eye Relief Eye Drops] 1 drop OP Q6H #1 bottle 01/22/20 Peg 400/Hypromellose/Glycerin [Dry Eye Relief Eye Drops] 1 ml OP Q6H #1 bottle 01/22/20 Anemia: No Asthma: No Cancer: No Cardiac Disorders: No CVA: No COPD: No CHF: No Dementia: No Diabetes: No GI Disorders: No Disorders: No HTN: No Hypercholesterolemia: No Liver Disease: No Psychiatric Problems: Yes (BIPOLAR hasn't taken meds in some time) Seizures: No Thyroid Disease: No - Reproductive History Is Patient Now?: No (#): 1 Cervical CA: No Dysfunctional Uterine Bleeding: No Ectopic : No Endometrial CA: No Polycystic Ovaries: No Tubal Ligation: No - Immunization History Td Vaccination: Yes TDAP Vaccination: Yes Immunization Up to Date: Yes - Psycho-Social/Smoking History Smoking History: Never smoked Have you smoked in the past 12 months: No Number of Cigarettes Smoked Daily: 4 'Breaking Loose' booklet given: 10/07/17 - Substance Abuse Hx (Audit-C & DAST Scrn) How often the patient has a drink containing alcohol: Never Score: In Men: 4 or > Positive; In Women: 3 or > Positive: 0 Screen Result (Pos requires Nsg. Audit-10AR): Negative In the last yr the pt used illegal drug/Rx for NonMed reason: No Score: Yes response is considered Positive: 0 Screen Result (Positive result requires Nsg. DAST-10): Negative Review of Systems - Review of Systems Able to Perform ROS?: Yes Comments:: 01/22/20 16:48 CONSTITUTIONAL: Absent: fever, chills, diaphoresis, generalized weakness, malaise, loss of appetite HEENT: Present: R eye pain Absent: rhinorrhea, nasal congestion, throat pain, throat swelling, difficulty swallowing, mouth swelling, ear pain, visual changes SKIN: Absent: rash, itching, pallor HEMATOLOGIC/IMMUNOLOGIC: Absent: easy bleeding, easy bruising, lymphadenopathy, frequent infections ENDOCRINE: Absent: unexplained weight gain, unexplained weight loss, heat intolerance, cold intolerance NEUROLOGIC: Absent: headache, focal weakness or paresthesias, dizziness, unsteady gait, seizure, mental status changes, bladder or bowel incontinence PSYCHIATRIC: Absent: anxiety, depression, suicidal or homicidal ideation, hallucinations. Is the patient limited Turkmen proficient: No *Physical Exam - Vital Signs Last Vital Signs Temp Pulse Resp BP Pulse Ox 98.6 F 77 16 99/57 L 100 01/22/20 13:44 01/22/20 13:44 01/22/20 13:44 01/22/20 13:44 01/22/20 13:44 - Physical Exam 01/22/20 16:49 GENERAL: Well developed, well nourished. Awake and alert. No acute distress. HEENT: Normocephalic, atraumatic. PERRLA, EOMI. No conjunctival pallor. Sclera are non- icteric. Fluroscein stain with uptake in the R eye at the 5 o'clock position. Moist mucous membranes. Oropharynx is clear. NECK: Supple. Full ROM. No JVD. Carotid pulses 2+ and symmetric, without bruits. No thyromegaly. No lymphadenopathy. EXTREMITIES: No cyanosis. No clubbing. No edema. No calf tenderness. SKIN: Warm and dry. Normal capillary refill. No rashes. No jaundice. NEUROLOGICAL: Alert, awake, appropriate. Cranial nerves 2-12 intact. No deficits to light touch and temperature in face, upper extremities and lower extremities. No motor deficits in the in face, upper extremities and lower extremities. Normoreflexic in the upper and lower extremities. Normal speech. Toes are down-going bilaterally. Gait is normal without ataxia. PSYCHIATRIC: Cooperative. Good eye contact. Appropriate mood and affect. ED Treatment Course - Medications Given in the ED: ED Medications Discontinued Medications Generic Name Dose Route Start Last Admin Trade Name Freq PRN Reason Stop Dose Admin Fluorescein Sodium 1 ea 01/22/20 13:57 01/22/20 13:58 Fluorets - OS 01/22/20 13:58 1 ea ONCE ONE Administration Tetracaine HCl 1 drop 01/22/20 13:57 01/22/20 13:58 Tetravisc 0.5% Eye Drops - OS 01/22/20 13:58 1 drop ONCE ONE Administration Medical Decision Making - Medical Decision Making 01/22/20 16:47 The patient is a 29 y/o F who presents to the ER with R eye pain and dryness. She states that she felt as if she got dust in her eyes a few days ago. She states that she had been putting an alcohol based solution (mixed with water) in her eyes to "clean them". She now states that her R eye is painful and she feels as if her vision is blurred. She states her L eye feels fine. Denies pain with eye movement, fever. A/P: R eye pain On exam, pt has fluorscein uptake in the R eye at the 5 o'clock position. Likely corneal abrasion, possibly d/t chemical or foreign body Advised to immediately stop using an alcohol based solution in the eye and follow up with ophthalmology within the week for evaluation Erythromycin ointment and dry eye drops prescribed Vision 20/25 OD, 20/20 OS, 20/20 OU Strict return precautions given DC home Pt understands all dc instructions and all questions were answered. Pt feels comfortable with discharge planning. Discharge - Discharge Information Problems reviewed: Yes Clinical Impression/Diagnosis: Corneal abrasion Qualifiers: Encounter type: initial encounter Laterality: left Qualified Code(s): S05.02XA - Injury of conjunctiva and corneal abrasion without foreign body, left eye, initial encounter Condition: Stable Disposition: HOME - Admission No - Additional Discharge Information Prescriptions: Peg 400/Hypromellose/Glycerin [Dry Eye Relief Eye Drops] 1 ml OP Q6H #1 bottle Peg 400/Hypromellose/Glycerin [Dry Eye Relief Eye Drops] 1 drop OP Q6H #1 bottle Erythromycin 0.5% Eye Ointment [Erythromycin 0.5% Eye Ointment -] 1 applic OS TID #1 tube - Follow up/Referral Referrals: Aaron Samano MD [Staff Physician] - Juan Carlos David MD [Staff Physician] - Salas Adams MD [Staff Physician] - - Patient Discharge Instructions Patient Printed Discharge Instructions: DI for Corneal Abrasion Additional Instructions: You have a corneal abrasion or a scratch on the surface of your eye. There was no foreign body in your eye today. Please use the erythromycin ointment 3 times a day until your symptoms improve. Please stop using the alcohol solution in your eye as you have been doing. This will cause dry eye and make the corneal abrasion worse. You may use Visine teardrops after your symptoms have improved to help with your dry eye. Please follow-up with ophthalmology as soon as possible and within a week. A referral has been provided to you. Return to the ER for worsening pain, vision loss or if you have any changes in your symptoms. - Post Discharge Activity
== END 2020-01-22 14:48 | disposition home or self-care (01) ==
LOC: JERFT 13:28 → JER 13:28 → JERFT 14:48
DX: S05.02XA Injury of conjunctiva and corneal abrasion without foreign body, left eye, initial encounter (principal)
CPT/HCPCS: 99283-25

== ENCOUNTER 2020-02-09 18:43 | Emergency (ER) | payer OTHER ==
[2020-02-09 18:52] VITALS: BP 99/65; PULSE 74; TEMP 98.1; BMI 22.8
--- OUTSIDE RECORDS SUMMARY | 2020-02-09 19:06 | XMS ---
:1990 Author Organization [facility] Care Team Providers Name Role Phone ED STAFF RAMÍREZ MCGREGOR Unavailable Unavailable BINDU HAILE Unavailable Unavailable LONG CNM, KARYN Unavailable LONG CNM, KARYN Unavailable LONG CNM, KARYN Unavailable LONG CNM, KARYN Unavailable ED STAFF PHYSICIAN, STAFF Unavailable Unavailable GAL DOTSON Unavailable OYEKOLA SCALES INSPECTOR, MOBOLAJI Unavailable OYEKOLA SCALES INSPECTOR, MOBOLAJI Unavailable OYEKOLA SCALES INSPECTOR, MOBOLAJI Unavailable ED STAFF PHYSICIAN, CHUY Unavailable Unavailable Kendall Quiroz MD Unavailable Unavailable Marcio Quiroz MD Unavailable Unavailable Marcio Quiroz MD Unavailable Unavailable Marcio Quiroz MD Unavailable Unavailable [facility] Unavailable Unavailable [facility] Unavailable Unavailable [facility] Unavailable Unavailable ED STAFF PHYSICIAN Unavailable Unavailable [facility] Unavailable Unavailable OYEKOLA MOBOLAJI Unavailable Unavailable ZUNASSIGNED Unavailable Unavailable Karen-Hamzah, E SCALES INSPECTOR Unavailable Unavailable Karen-Hamzah, E SCALES INSPECTOR Unavailable Unavailable Karen-Hamzah, E SCALES INSPECTOR Unavailable Unavailable ED STAFF PHYSICIAN Unavailable Unavailable Re-disclosure Warning The records that you are about to access may contain information from federally- assisted alcohol or drug abuse programs. If such information is present, then the following federally mandated warning applies: This information has been disclosed to you from records protected by federal confidentiality rules (42 CFR part 2). The federal rules prohibit you from making any further disclosure of this information unless further disclosure is expressly permitted by the written consent of the person to whom it pertains or as otherwise permitted by 42 CFR part 2. A general authorization for the release of medical or other information is NOT sufficient for this purpose. The Federal rules restrict any use of the information to criminally investigate or prosecute any alcohol or drug abuse patient.The records that you are about to access may contain highly sensitive health information, the redisclosure of which is protected by Article 27-F of the [facility] Public Health law. If you continue you may haveaccess to information: Regarding HIV / AIDS; Provided by facilities licensed or operated by the [facility] Office of Mental Health; or Provided by the [facility] Office for People With Developmental Disabilities. If such information is present, then the following [facility] mandated warning applies: This information has been disclosed to you from confidential records which are protected by state law. State law prohibits you from making any further disclosure of this information without the specific written consent of the person to whom it pertains, or as otherwise permitted by law. Any unauthorized further disclosure in violation of state law may result in a fine or correction sentence or both. A general authorization for the release of medical or other information is NOT sufficient authorization for further disclosure. Allergies and Adverse Reactions Type Description Substance Reaction Status Data Source(s ) Allergy to No Known Allergies No known GREENW AY ([place] substance allergies [facility] ([facility] ) Allergy to No Known Allergies No known GREENW AY ([facility] substance allergies [facility] ([facility] ) Allergy to No Known Allergies No known GREENW AY ([place] substance allergies [facility] ([facility] ) Allergy to No Known Allergies No known GREENW AY ([facility] substance allergies [facility] ([facility] ) Allergy to No Known Allergies No known GREENW AY ([facility] substance allergies [facility] ([facility] ) Allergy to No Known Allergies No known GREENW AY ([facility] substance allergies [facility] ([facility] ) Encounters Encounter Providers Location Date Indications Data Source(s ) Emergency Attender: ED STAFF H 01/21/2020 [facility] PHYSICIANAttender: 06:47:00 PM [facility] STAFF ED STAFF EDT - PHYSICIANAdmitter: ED 01/21/2020 STAFF 09:43:00 PM PHYSICIANReferrer: EDT ZUNASSIGNED Patient discharged. Outpatient 01/20/2020 01:38:00 PM Cu reMD ([facility]) Outpatient 01/19/2020 02:03:00 PM Cu reMD ([facility]) Emergency Attender: CHUY ED H 12/20/2019 02:03:00 PM [facility] Medical STAFF EDT - 12/20/2019 [place] PHYSICIANAttender: 03:13:00 PM EDT STAFF ED STAFF PHYSICIANAdmitter: CHUY ED STAFF PHYSICIAN Patient discharged. [facility] 11/20/2019 [facility] 12:00:00 AM EDT [facility] [place] [facility]) [facility] 11/06/2019 eCW2 ([facility] [place] 12:00:00 AM EDT Par [facility]hood [place] [facility]) [facility] 11/04/2019 eCW2 ([facility] [place] 12:00:00 AM EDT Par [facility]hood [place] [facility]) Emergency Attender: STAFF H 10/29/2019 [facility] ED STAFF 07:29:00 PM EDT Medical C enter PHYSICIAN - 10/29/2019 11:14:00 PM EDT Patient discharged. Planned Planned 10/22/2019 eCW2 ([facility] 12:00:00 AM EDT Par [facility]hood [place] [facility]) [facility] 10/22/2019 eCW2 ([facility] [place] 12:00:00 AM EDT Par enthood - [place] [facility]) [facility] 10/22/2019 eCW2 ([facility] [place] 12:00:00 AM EDT Par enthood - [place] [facility]) Emergency Attender: CHUY Buckley 10/16/2019 [facility] ED STAFF 03:47:00 PM EDT Medical C enter PHYSICIANAttend - 10/16/2019 er: STAFF ED 07:09:00 PM EDT STAFF PHYSICIANAdmitt er: CHUY ED STAFF PHYSICIAN Patient discharged. [facility] 10/16/2019 eCW2 ([facility]anned [place] 12:00:00 AM EDT [facility] [place] [facility]) Outpatient<td Attender: [place] 09/17/2019 [facility] ID="encounterTypeD Soraida [facility] 12:15:00 PM EDT [place] escriptionID0">[facility] - 09/17/2019 Neighborhood KINS</td><td>Soraida nadine SCALES INSPECTOR 01:26:58 PM EDT [facility] SCALES INSPECTOR</td><td>[facility]</td><td></td><td></ td> Emergency Attender: Marcio 08/06/2019 [facility] 12:10:00 PM EDT [facility] [place] - 08/06/2019 MDAttender: 05:54:00 PM EDT STAFF ED STAFF PHYSICIANAdmit ter: Kendall Burris MD Patient discharged. Planned Planned 08/04/2019 eCW2 ([facility] [place] [facility] 12:00:00 AM EDT [facility] [place] [facility]) Emergency Attender: CHUY Buckley 07/11/2019 [facility] ED STAFF 01:34:00 PM EDT Medical C enter PHYSICIANAttend - 07/11/2019 er: STAFF ED 05:19:00 PM EDT STAFF PHYSICIANAdmitt er: CHUY ED STAFF PHYSICIAN Patient discharged. Emergency Attender: RAMÍREZ ED STAFF H 07/07/2019 01:20:00 PM [facility] PHYSICIANAttender: STAFF ED EDT - 07/07/2019 Medical Center STAFF PHYSICIANAdmitter: 04:50:00 PM EDT RAMÍREZ ED STAFF PHYSICIAN Patient discharged. Outpatient<td Attender: Meri 07/02/2019 [place] ID="encounterTypeDescriptionID1">*OUTREACH*</td><td>GAL MENDES [facility] 04:42:00 PM ([place] [facility]</td><td>[facility]</td><td>07/02/2019</td><td></td> [facility] [address] [place] [address] 11:59:00 PM Center) EST Emergency Attender: Marcio 06/30/2019 [facility] ED 01:35:00 PM Medical STAFF EST - Center PHYSICIANA 06/30/2019 ttender: 07:47:00 PM STAFF ED EST STAFF PHYSICIANA dmitter: RAMÍREZ ED STAFF PHYSICIAN Patient discharged. Outpatient Attender: GAL Buckley 06/30/2019 [facility] MARIALUISAWA 12:51:00 PM Medical MOBVAUGHNAdmitter: EST Center GAL SANTOReferrer: GAL SANTO Outpatient< Attender: GAL Jerez 06/27/2019 [facility] 10:45:00 AM (Ronnie Sorto n ID="encount [facility] erTypeDescr Center 06/27/2019 Health iptionID2"> 10:45:58 AM Center) *PPD EST Reading*</t d><td>MOBOL SRIKANTH OYEKOLA SCALES INSPECTOR</td><td >[facility]</td> <td> 020</td><td ></td> Outpatient< Attender: GAL Jerez 06/25/2019 Questionnaires P hq-9 LIBBY td OYEKOLA [facility] 02:00:00 PM Quick Depression ([place] ID="[facility] Health EST - Assessment Neighborhood [facility] 06/25/2019 PanelRoutine History Hea [facility] iptionID3"> 12:54:04 PM and Center) COMPLETE EST PhysicalOverweightQues PHYSICAL tionnaires Phq-9 Quick EXAM</td><t Depression Assessment d>LENNYJADAPRAFUL PanelRoutine History OYEKOLA and SCALES INSPECTOR</td><td PhysicalOverweightQues >[place] tionnaires Phq-9 Quick [facility] Depression Assessment [facility] PanelRoutine [facility]</td> and <td> PhysicalOverweightQues 020</td><td tionnaires Phq-9 Quick ><content Depression Assessment ID="encount PanelRoutine History erDiagnosis and PhysicalOverweight ID3-0">Over weight</con tent>, <content ID="encount erDiagnosis ID3-1">Rout ine History and Physical</c ontent>, <content ID="encount erDiagnosis ID3-2">Ques tionnaires Phq-9 Quick Depression Assessment Panel</cont ent></td> Questionnaires Phq-9 Quick Depression As sessment Panel Routine History and Physical Overweight Questionnaires Phq-9 Quick Depression As sessment Panel Routine History and Physical Overweight Questionnaires Phq-9 Quick Depression As sessment Panel Routine History and Physical Overweight Questionnaires Phq-9 Quick Depression As sessment Panel Routine History and Physical Overweight Outpatient Attender: MHAW9 [facility] 06/17/2019 01:07:43 PM GSI ([facility]) Patient admitted. Planned Planned 05/26/2019 eCW2 ([facility] 12:00:00 AM [facility]) Outpatient 05/22/2019 [facility] 05:18:00 PM ([facility]) Outpatient 05/16/2019 Cure[facility] 03:43:00 PM ([facility]) Outpatient 05/16/2019 Cure[facility] 03:43:00 PM ([facility]) Outpatient 05/16/2019 Cure[facility] 03:39:00 PM ([facility]) Outpatient<td Attender: Meri 05/05/2019 OverweightSore LAW Y ([place] ID="encounter [facility] 11:30:00 AM ThroatOverweightSore Marco A TypeDescripti [facility] EST - ThroatOverweightSore Neighborhood onID4">[facility] Center 05/05/2019 [facility] S</td><td>MOB 12:49:26 PM Throat [facility] SCALES INSPECTOR</td><td>[facility]</td><t d>05/05/2019< /td><td><cont ent ID="encounter DiagnosisID4- 0">Sore Throat</emilee nt>, <content ID="encounter DiagnosisID4- 1">Overweight </content></t d> Overweight Sore Throat Overweight Sore Throat Overweight Sore Throat Overweight Sore Throat Emergency Attender: ED STAFF H 04/21/2019 08:45:00 PM [facility] PHYSICIANAttender: CHUY ED EST - 04/22/2019 [facility] STAFF PHYSICIANAttender: STAFF 03:20:00 PM EST ED STAFF PHYSICIANAdmitter: ED STAFF PHYSICIAN Patient discharged. Emergency Attender: STAFF ED STAFF H 04/14/2019 11:55:00 PM [facility] Medical PHYSICIAN EST - 04/15/2019 04:10:00 Center AM EST Patient discharged. Emergency Attender: [facility] ED STAFF H-ER 04/10/2019 04:11:00 [facility] PHYSICIANAttender: STAFF ED PM EST - 04/10/2019 [facility] STAFF PHYSICIANAdmitter: 08:40:00 PM EST [facility] ED STAFF PHYSICIAN Patient discharged. Outpatient<td Attender: Meri 04/03/2019 [place] ID="encounterTypeDescriptionID5">*No BINDU [facility] 11:53:00 A M ([place] Show*</td><td>BINDU MIC FISHUJA Health EST - Neighborhood RD</td><td>[facility] 04/03/2019 Health Center</td><td>04/03/2019</td><td></td> 11:59:0 0 PM Center) EST Emergency Attender: H 03/30/2019 [facility] 12:11:00 PM Medical STAFF EST - Center PHYSICIANA 03/30/2019 ttender: 06:07:00 PM STAFF ED EST STAFF PHYSICIANA dmitter: CHUY ED STAFF PHYSICIAN Patient discharged. Outpatient<td Attender: Meri 03/18/2019 [place] ID="encounterTypeDescriptionID6">*OUTREACH*</td><td>GAL MENDES [facility] 05:24:00 PM ([facility]</td><td>[facility] Center</td><td>03/18/2019</td><td></td> SCALES INSPECTOR Center [facility] 11:59:00 PM Center) EST Outpatient<td ID="encounterTypeDescriptionID7">*No Attender: Donato escamilla 03/12/2019 [place] Show*</td><td>KARYN [facility]</td><td>[facility] 04:29:00 PM ([facility]</td><td>03/12/2019</td><td></td> LONG [facility] EST - Neighborhood Center 03/12/2019 Health 11:59:00 PM Center) EST Outpatient<td Attender: Meri 03/10/2019 M LIBBY ID="encounterTypeDescriptionID8">WALKINS</td><td>GAL BASILIO [facility] 02:15:00 PM e ([facility]</td><td>[facility]</td><td>03/10/2019</td><td><content SCALES INSPECTOR Center 02/28 o Health ID="encounterDiagnosisID8-0">Overweight</content>, <content 04:13:41 PM r Center) ID="encounterDiagnosisID8-1">Sore Throat</content>, <content EST r ID="encounterDiagnosisID8-2">Menorrhagia</content></td> h a g i a S o r e T h r o a t O v e r w e i g h t M e n o r r h a g i a S o r e T h r o a t O v e r w e i g h t M e n o r r h a g i a S o r e T h r o a t O v e r w e i g h t M e n o r r h a g i a S o r e T h r o a t O v e r w e i g h t M e n o r r h a g i a S o r e T h r o a t O v e r w e i g h t M e n o r r h a g i a S o r e T h r o a t O v e r w e i g h t Menorrhagia Sore Throat Overweight Menorrhagia Sore Throat Overweight Menorrhagia Sore Throat Overweight Menorrhagia Sore Throat Overweight Menorrhagia Sore Throat Overweight Menorrhagia Sore Throat Overweight Unlisted evaluation and 12/17/2018 06:45:00 PM EDT NETSMART (Mental Health management service [facility]) Unlisted evaluation and 09/10/2018 03:00:00 PM EDT NETSDAT (Mental Health management service - 12/12/2018 04:00:00 AM [facility]) EDT Immunizations Vaccine Date Status Description Data Source(s) Note that this vaccine 01/21/2020 completed [facility] Medical name has changed. See 09:41:00 PM EDT Ce nter also Td (adult). It is not adsorbed. TB Skin 06/25/2019 completed PPD 1 06/25/2019 Left Active Ruthann nt Marco A LIBBY test is 12:49:00 PM TB Lower (Administered) Netomasa mason ([facility] Neighborhood vaccine. Healt [facility]) Medications Medication Brand Start Product Dose Route Administrative Pharmacy [facility] Indications Reaction Description Data Name Date Form Instructions Instructions Source(s) Escitalopra Escita 1.0 Oral active NE TSMART m 10 MG lopram 2019 Table (Mental Oral Tablet Oxalat 04:00: t Heal th e 00 AM [facility]atio [facility]T [facility] benztropine Benztr 1.0 Oral active NE TSMART mesylate 1 opine 2019 Table (Mental MG Oral Mesyla 04:00: t Health Tablet te 00 AM Associatio EDT [facility]) Risperidone risper 1.0 Oral active NE TSMART 1 MG Oral iDONE 2019 Table (Mental Tablet 04:00: t Health 00 AM Associatio EDT n of Ynes gonzalez) Ventolin Ventol 09/16/ INHALATI active Ventol in LIBBY HFA 108 ( in HF2019 ON ([place] Base)MCG/AC 108 12:00: DOSING [place] on T (90 00 AM UNIT [place] Inhalation Base)M EDT od Aerosol CG/ACT Center) Solution Inhala tion Aeroso l Soluti on Escitalopra Escita 1.0 Oral active NE TSMART m 10 MG lopram 2019 Table (Mental Oral Tablet Oxalat 04:00: t Heal e 00 AM Associatio EDT n [facility]) Risperidone risper 1.0 Oral active NE TSMART 1 MG Oral iDONE 2019 Table (Mental Tablet 04:00: t Health 00 AM Associatio EDT [facility]) benztropine Benztr 1.0 Oral active NE TSMART mesylate 1 opin2019 Table (Mental MG Oral Mesyla 04:00: t Health Tablet te 00 AM Associatio EDT n of Ynes r) ulipristal Ny 08/03/ active as directe d eCW2 acetate 30 30 MG 2019 (Planned MG Oral 12:00: Parenthood Tablet 00 AM - [place] [Ny] Ny EDT [facility] 30 MG [facility] ed) ulipristal Ny 08/03/ active as directe d eCW2 acetate 30 30 MG 2019 (Planned MG Oral 12:00: Parenthood Tablet 00 AM - [place] [[place]y] Ny EDT [facility] 30 MG Incorporat ed) ulipristal Ny 08/03/ suspend as direct ed eCW2 acetate 30 30 MG 2019 ed (Planned MG Oral 12:00: Parenthood Tablet 00 AM - [place] [Ny] Ny EDT [facility] 30 MG Incorporat ed) benztropine Benztr 06/26/ UNIT 1 active Benztro pine LIBBY mesylate 1 opine 2019 Mesylate (Ruthann nt MG Oral Mesyla 12:00: Marco A Tablet te 1MG 00 AM Neighbor[place] Benztropine Oral EST od Healt h Mesylate Tablet Center) 1MG Oral Tablet RisperDAL Risper 06/25/ UNIT 1 active Risperdal LIBBY 1MG Oral JUMANA 2020 ([place] Tablet 1MG 12:00: Marco A Oral 00 AM [place]ighbor[place] Tablet EST od Health Center) Terazol 3 UNK 05/26/ active 1 eCW2 0.8 % 2020 application (Planne d 12:00: at bedtime Parenth ood 00 AM - [place] EST [facility] ed) benztropine Benztr 05/12/ 1.0 Oral active NE TSMART mesylate 1 opine 2019 Table (Mental MG Oral Mesyla 05:00: t Health Tablet te 00 AM Associatio EST n of [facility] r) Risperidone risper 1.0 Oral active NE TSMART 1 MG Oral iDONE 2019 Table (Mental Tablet 05:00: t Health 00 AM Associatio EST n of [facility] r) Guaifenesin guaiFE 05/05/ CAPFUL complet guai FENesin LIBBY 20 MG/ML Nesin 2020 DOSING ed ([place] Oral 100MG/ 12:00: UNIT Marco A Solution 5ML 00 AM [place] guaiFENesin Oral EST od Healt h 100MG/5ML Soluti Center) Oral on Solution Cepacol Cepaco 05/05/ UNIT complet Cepacol GR EENWAY Regular l 2020 ed Regular ([place] Strength Regula 12:00: Strength Nereyda non 3MG r 00 AM [place]ighbor[place] Mouth/Throa Streng EST od Hea lth t Lozenge th 3MG Center) Mouth/ Throat Lozeng e Ventolin Ventol 05/05/ INHALATI active Ventol in LIBBY HFA 108 (90 in HFA 2020 ON ([facility] Base)MCG/AC 108 12:00: DOSING [place] on T (90 00 AM UNIT [place] Inhalation Base)M EST od Heal th Aerosol CG/ACT Center) Solution Inhala tion Aeroso l Soluti on Cepacol Cepaco 03/10/ UNIT complet Cepacol GR EENWAY Regular l 2019 ed Regular ([place] Strength Regula 12:00: Strength Nereyda non 3MG r 00 AM [place] Mouth/Throa Streng EST od Hea lth t Lozenge th 3MG Center) Mouth/ Throat Lozeng e Loratadine Lorata 03/10/ UNIT 1 complet Loratad ine LIBBY 5 MG dine 2018 ed ([place] Chewable 5MG 12:00: Marco A Tablet Oral 00 AM Neighbor[place] Loratadine Tablet EST od Heal th 5MG Oral Chewab Center) Tablet le Chewable Risperidone risper 1.0 Oral active NE TSMART 1 MG Oral iDONE 2018 Table (Mental Tablet 04:00: t Health 00 AM Associatio EDT n of Ynes gonzalez) benztropine Benztr .0 Oral active NE TSMART mesylate 1 opine 2018 Table (Mental MG Oral Mesyla 04:00: t Health Tablet te 00 AM Associatio EDT n of [place]nes gonzalez) 02/06/ ORAL active NETSMART 2019 (Mental 04:00: Health 00 AM Associatio EDT n of [place] gonzalez) 02/06/ ORAL active NETSMART 2019 (Mental 04:00: Health 00 AM Associatio EDT n of [place] gonzalez) 01/06/ ORAL complet NETSMART 2019 ed (Mental 04:00: Health 00 AM Associatio EDT n of [place] gonzalez) 01/06/ ORAL complet NETSMART 2019 ed (Mental 04:00: Health 00 AM Associatio EDT n of [place] gonzalez) 12/09/ ORAL complet NETSMART 2019 ed (Mental 04:00: Health 00 AM Associatio EDT n of [place]nes gonzalez) 12/09/ ORAL complet NETSMART 2019 ed (Mental 04:00: Health 00 AM Associatio EDT n of Ynes gonzalez) Valtrex Valtre 08/27/ UNIT 1 complet Valtrex GR EENWAY 500MG Oral x 2019 ed ([place] Tablet 500MG 12:00: Marco A Oral 00 AM [place]ighbor[place] Tablet EDT od Health Center) Valtrex Valtre 08/27/ UNIT 1 complet Valtrex GR EENWAY 500MG Oral x 2019 ed ([place] Tablet 500MG 12:00: Marco A Oral 00 AM [place]ighbor[place] Tablet EDT od Health Center) Loratadine Lorata 04/11/ UNIT 1 suspend Loratad ine LIBBY 5 MG dine 2018 ed ([place] Chewable 5MG 12:00: Marco A Tablet Oral 00 AM Neighbor[place] Loratadine Tablet EST od Heal th 5MG Oral Chewab Center) Tablet le Chewable Insurance Providers Payer name Policy type / Policy ID Covered Covered democrat's Policy Plan Coverage type democrat ID relationship to Nichole Information nichole BALWINDER [id number] SP [id number] 500 [facility] BALWINDER CARE W [id number] 01 [id number] [place] [id number] MEDICAID F 18 F Balwinder Care Individual 0 Self 0 [place] Policy [place] Care Individual 0 Self 0 [place] Policy Bal[place] Care Individual 0 Self 0 [facility] Balwinder Care Individual 0 Self 0 [facility] Bal[place]inder Care Individual 0 Self 0 [facility] [place] Care Individual 0 Self 0 [facility] Medicaid Medicaid [id number] [place] Care Medicaid [id number] 1 [id number] [place] Care Individual 0 Self 0 [place] Policy [place] Care Individual 0 Self 0 [place] Policy [place] Care Individual 0 Self 0 [facility] Balwinder Care Individual 0 Self 0 [place] Policy [place] Individual 0 Self 0 [place] Policy Balw[place] Care Individual 0 Self 0 [place] Policy Balwinder [id number] S [id number] 500 Family Planning MKD & EP 3 & 4 Only Sal Vision [id number] S [id number] MKD Dental [id number] S [id number] Dentaquest MKD [place] Care [id number] S [id number] [place] Medicaid [id number] S [id number] Regular Clinic Visit Balwinder [id number] S [id number] Healthier Life MKD -- HARP Balwinder Care Individual 0 Self 0 [place] Policy Bal[place] Care Individual 0 Self 0 [place] Policy [place] Care Individual 0 Self 0 [place] Policy [place] Care Individual 0 Self 0 [place] Policy Bal[place] Care Individual 0 Self 0 [place] Policy Problems, Conditions, and Diagnoses Code Display Name Description Problem Type Effective Data Sour ce(s) Dates [id number] Recurrent major Recurrent major Complaint 10/06/2019 NETS MART depressive depressive 06:20:00 PM (Mental Healt h episodes, mild episodes, mild EDT [facility]) [id number] Schizophrenia Schizophrenia Problem 06/25/2019 LIBBY ([place] (disorder) 12:00:00 AM [facility]) [id number] Schizophrenia Schizophrenia Problem 06/25/2019 [place] ([place] (disorder) 12:00:00 AM [facility]) [id number] Schizophrenia Schizophrenia Problem 06/25/2019 [place] ([place] (disorder) 12:00:00 AM [facility]) [id number] Schizophrenia Schizophrenia Problem 06/25/2019 [place] ([place] (disorder) 12:00:00 AM [facility]) [id number] Adjustment Adjustment Complaint 05/28/2019 NETSMART disorder disorder 07:45:00 PM (Mental Healt h EST - Association of 10/06/2019 [place]) 06:20:00 PM EDT [id number] Anxiety disorder Anxiety disorder Complaint 05/28/2019 NE TSMART (disorder) (disorder) 05:00:00 AM (Mental Healt h EST [facility]) [id number] Adjustment Adjustment Complaint 09/19/2018 NETSMART disorder with disorder with 05:50:00 PM (Mental Health mixed anxiety and mixed anxiety and EDT - Association of depressed mood depressed mood 05/28/2019 [facility]) 07:45:00 PM EST Y99.9 Unspecified UNSPECIFIED Diagnosis 01/21/2020 [facility] external cause EXTERNAL CAUSE 06:47:00 PM Medic al Center status STATUS EDT Y92.[address] IN Diagnosis 01/21/2020 Madhav Munoz in unspecified UNSP NON-INSTITUT 06:47:00 PM [place] [facility] non-institutional (PRIVATE) EDT (private) RESIDENCE residence as the PLACE place of occurrence of the external cause Y93.9 Activity, ACTIVITY, Diagnosis 01/21/2020 [facility] unspecified UNSPECIFIED 06:47:[address] EDT W25.XXXD Contact with sharp CONTACT WITH Diagnosis 01/21/2020 Madhav Munoz glass, subsequent [place], 06:47:00 PM [facility] encounter SUBSEQUENT EDT ENCOUNTER S05.01XD Injury of INJ CONJUNCTIVA Diagnosis 01/21/2020 [facility] ephs conjunctiva and AND CORNEAL 06:47:00 PM Medical Center corneal abrasion ABRASION W/O FB, EDT without foreign RIGHT EYE, SUBS body, right eye, subsequent encounter L29.9 Pruritus, PRURITUS, Diagnosis 12/20/2019 [facility] unspecified UNSPECIFIED 02:03:[address] EDT K57.00 Diverticulitis of DVTRCLI OF SM INT Diagnosis 10/29/2019 [facility] Munoz small intestine W PERFORATION AND 07:29:00 PM edical Center with perforation ABSCESS W/O EDT and abscess BLEEDING without bleeding R33.9 Retention of RETENTION OF Diagnosis 10/29/2019 [facility] phs urine, unspecified URINE, 07:29:00 PM [facility] al Center UNSPECIFIED EDT Y93.89 Activity, other ACTIVITY, OTHER Diagnosis 10/16/2019 Madhav Munoz specified SPECIFIED 03:47:00 PM Medical Cente r EDT X58.XXXA Exposure to other EXPOSURE TO OTHER Diagnosis 10/16/2019 [facility]oz specified factors, SPECIFIED 03:47:00 PM [facility] al Center initial encounter FACTORS, INITIAL EDT ENCOUNTER S05.01XA Injury of INJ CONJUNCTIVA Diagnosis 10/16/2019 [facility] ephs conjunctiva and AND CORNEAL 03:47:00 PM Medical Center corneal abrasion ABRASION W/O FB, EDT without foreign RIGHT EYE, INIT body, right eye, initial encounter F41.9 Anxiety disorder, ANXIETY DISORDER, Diagnosis 10/16/2019 [facility] unspecified UNSPECIFIED 03:47:[address] EDT R19.7 Diarrhea, DIARRHEA, Diagnosis 08/06/2019 [facility] unspecified UNSPECIFIED 12:10:[address] EDT K62.5 Hemorrhage of anus HEMORRHAGE OF Diagnosis 08/06/2019 [place] Munoz and rectum ANUS AND RECTUM 12:10:00 PM Medical Center EDT R05 Cough COUGH Diagnosis 07/11/2019 [facility] 01:34:00 PM Medical Cente r EDT J02.9 Acute pharyngitis, ACUTE Diagnosis 07/11/2019 [facility] unspecified PHARYNGITIS, 01:34:00 PM Medical Ce nter UNSPECIFIED EDT R76.11 Nonspecific NONSPECIFIC Diagnosis 06/30/2019 [facility] grace reaction to REACTION TO SKIN 12:51:00 PM [facility] tub[facility] skin TEST W/O ACTIVE EST test without TUBERCULOSIS active tuberculosis F32.9 Major depressive MAJOR DEPRESSIVE Diagnosis 04/21/2019 int [facility] disorder, single DISORDER, SINGLE 08:45:00 PM edical Center episode, EPISODE, EST unspecified UNSPECIFIED F20.9 Schizophrenia, SCHIZOPHRENIA, Diagnosis 04/21/2019 [facility] unspecified UNSPECIFIED 08:45:[address] EST Z00.8 Encounter for ENCOUNTER FOR Diagnosis 04/21/2019 [facility] Venessa arnold other general OTHER GENERAL 08:45:00 PM Medical Center examination EXAMINATION EST R06.00 Dyspnea, DYSPNEA, Diagnosis 04/14/2019 [facility] unspecified UNSPECIFIED 11:55:[address] EST Z87.891 Personal history PERSONAL HISTORY Diagnosis 04/10/2019 int [facility] of nicotine OF NICOTINE 04:11:[address] dependence DEPENDENCE EST R07.89 Other chest pain OTHER CHEST PAIN Diagnosis 04/10/2019 Sa [facility] 04:11:00 PM Medical Cente r EST R07.9 Chest pain, CHEST PAIN, Diagnosis 04/10/2019 [facility] Max s unspecified UNSPECIFIED 04:11:[address] EST F17.210 Nicotine NICOTINE Diagnosis 03/30/2019 [facility]oz dependence, DEPENDENCE, 12:11:[address] cigarettes, CIGARETTES, EST uncomplicated UNCOMPLICATED J32.9 Chronic sinusitis, CHRONIC Diagnosis 03/30/2019 [facility] unspecified SINUSITIS, 12:11:00 PM Medical Cent er UNSPECIFIED EST Surgeries/Procedures Procedure Description Date Indications Data Source(s) HIV Rapid Test INSTI 11/20/2019 eCW2 (P lanned 12:00:00 AM [facility]) Test 11/20/2019 eCW2 (Planned 12:00:00 AM [facility]) SPECIMEN HANDLING 11/20/2019 eCW2 (Plan makayla 12:00:00 AM [facility]) [place] 11/20/2019 eCW2 (Planned 12:00:00 AM [facility]) Test 10/16/2019 eCW2 (Planned 12:00:00 AM [facility]) CHLAMYDIA, NICOLÁS 10/16/2019 eCW2 (Planned 12:00:00 AM [facility]) GONORRHEA, NICOLÁS 10/16/2019 eCW2 (Planned 12:00:00 AM [facility]) SPECIMEN HANDLING 10/16/2019 eCW2 (Plan makayla 12:00:00 [facility] SYPHILIS TEST 10/16/2019 eCW2 (Planned 12:00:00 [facility] TRICHOMONAS, NICOLÁS 10/16/2019 eCW2 (Plann ed 12:00:00 AM [facility]) HIV Rapid Test INSTI 10/16/2019 eCW2 (P lanned 12:00:00 AM [facility] No recent change in No recent change in 09/17/2019 Sena WHITE ([facility] medical history medical history 12:00:00 AM [facility]) Date of last Date of last 09/17/2019 LIB[place] ([facility] menstruation menstruation 12:00:00 AM [facility] 09/16/2019 09/16/2019 [facility]) PPD READING ONLY PPD READING ONLY 06/27/2019 [place] ([facility] 12:00:00 AM [facility]) No prior serious No prior serious 06/26/2019 [place] ([facility] illness illness 12:00:00 AM [facility]) History of Eyes: History of Eyes: 06/26/2019 [place] ([facility] normal normal 12:00:00 AM [facility]) No history of surgery No history of 06/26/[address] ([facility] surgery 12:00:00 AM [facility]) Date of last Date of last 06/26/2019 LIBBY ([facility] menstruation menstruation 12:00:00 AM [facility] 06/04/2019 06/04/2019 [facility]) Annual depression DEPRESSION SCREENING 06/25/2019 CULLEN PETERS ([facility] screening, 15 minutes (15 MINS) 12:00:00 AM [facility]) PPD PPD 06/25/2019 [place] ([place] 12:00:00 AM [facility]) SCREENING TEST VISUAL VISUAL ACUITY SCREEN 06/25/2019 [place] ([facility] ACUITY QUANTITATIVE (Distinct Procedural 12:00:00 AM [facility] BILAT Service) [facility]) [place] 05/26/2019 eCW2 (Planned 12:00:00 AM [facility] EST [facility]) HIV Rapid Test INSTI 05/26/2019 eCW2 (P lanned 12:00:00 AM [facility] EST [facility]) Test 05/26/2019 eCW2 (Planned 12:00:00 AM [facility] EST [facility]) SPECIMEN HANDLING 05/26/2019 eCW2 (Plan makayla 12:00:00 AM [facility] EST [facility]) GONORRHEA, NICOLÁS 05/26/2019 eCW2 (Planned 12:00:00 AM [facility] EST [facility]) CHLAMYDIA, NICOLÁS 05/26/2019 eCW2 (Planned 12:00:00 AM [facility] EST [facility]) Bmi is documented BMI > NORMAL 05/05/2019 [place] ([place] above normal DOCUMENTED W F/U 12:00:00 AM Marco A Ne hborhood parameters and a PLAN [facility] Health Cent er) follow-up plan is documented THROAT CULTURE THROAT CULTURE 05/05/2019 [place] (M ount 12:00:00 AM [facility]) No prior serious No prior serious 03/12/2019 [place] ([facility] illness illness 12:00:00 AM [facility]) Date of last Date of last 03/12/2019 [place] ([facility] menstruation menstruation 12:00:00 AM [facility] 03/07/2019 03/07/2019 [facility]) [id number] 03/10/2019 [facility] ([facility] 12:00:00 AM [facility]) Bmi is documented BMI > NORMAL 03/10/2019 [place] ([place] above normal DOCUMENTED W F/U 12:00:00 AM Marco A Ne hborhood parameters and a PLAN [facility] Health Cent er) follow-up plan is documented METABOLIC PANEL METABOLIC PANEL 03/10/2019 [place] ([place] COMPREHE COMPREHE 12:00:00 AM [facility]) THROAT CULTURE THROAT CULTURE 03/10/2019 [place] (M ount 12:00:00 AM [facility]) Bmi is documented BMI > NORMAL 03/10/2019 [place] ([facility] above normal DOCUMENTED W F/U 12:00:00 AM [facility] hborhood parameters and a PLAN EST [facility] er) follow-up plan is documented Results ID Date Data Source [id number] 01/08/2020 12:00:00 AM EDT [facility] Name Value Range Interpretation Description Data Sup porting Code Source(s) Document(s ) Nasopharyngeal [facility] Swab SARS-CoV-2 / COVID-19 This lab was ordered by [facility] and reported by [facility] [place]. ID Date Data Source Urinalysis.[id number] 10/29/2019 09:58:00 PM EDT [facility] 0 Name Value Range Interpretation Description Data Sup porting Code Source(s) Document(s ) UNK NEGATIVE <content Saint styleCode="Reymundo Alexander d">Urine Medical Bilirubin Center </content>NEGA TIVE <content styleCode="Carlota lics"> (NEGATIVE )</content> Ketones NEGATIVE <content [facility] [Mass/volume] styleCode="Reymundo Alexander in Urine by d">Urine Medical Test strip Ketone Center </content>NEGA TIVE MG/DL<content styleCode="Carlota lics"> (NEGATIVE MG/DL)</conten t> Color of Urine YELLOW <content [facility] styleCode="Reymundo Alexander d">Color, Medical Urine Center </content>YELL OW <content styleCode="Carlota lics"> (YELLOW )</content> Glucose NEGATIVE <content [facility] [Mass/volume] styleCode="Reymundo Alexander in Urine by d">Urine Medical Test strip Glucose Center </content>NEGA TIVE MG/DL<content styleCode="Carlota lics"> (NEGATIVE MG/DL)</conten t> UNK CLEAR <content Saint styleCode="Reymundo Alexander d">Urine Medical Clarity Center </content>HAZY <content styleCode="Carlota lics"> (CLEAR )</content> Urobilinogen 0.2-1.0 <content Saint [Units/volume] styleCode="Reymundo Maxs in Urine by d">Urine Medical Test strip Urobilinogen Center </content>0.2 MG/DL<content styleCode="Carlota lics"> (0.2-1.0 MG/DL)</conten t> pH of Urine by 4.5-8.0 Above high <content Saint Test strip normal styleCode="Reymundo Alexander d">Urine pH Medical </content>8.5 Center H<content styleCode="Carlota lics"> (4.5-8.0 )</content> Specific 1.015-1.02 <content [facility] gravity of 5 styleCode="Reymundo Maxs Urine by Test d">Urine Medical strip Specific Center [place] </content>1.02 0 <content styleCode="Carlota lics"> (1.015-1.025 )</content> Protein NEGATIVE <content [facility] [Mass/volume] styleCode="Reymundo Maxs in Urine by d">Urine Medical Test strip Protein Center </content>TRAC E MG/DL<content styleCode="Carlota lics"> (NEGATIVE MG/DL)</conten t> Hemoglobin NEGATIVE <content Saint [Presence] in styleCode="Reymundo Maxs Urine by Test d">Urine Blood Medical strip </content>NEGA Center TIVE <content styleCode="Carlota lics"> (NEGATIVE )</content> Leukocyte NEGATIVE <content Saint esterase styleCode="Reymundo Alexander [Presence] in d">Urine Medical Urine by Test Leukocyte Center strip </content>NEGA TIVE <content styleCode="Carlota lics"> (NEGATIVE )</content> UNK NEGATIVE <content Saint styleCode="Reymundo Alexander d">Urine Medical Bacteria Center </content>FEW HPF<content styleCode="Carlota lics"> (NEGATIVE HPF)</content> UNK 0-3 <content Saint styleCode="Reymundo Alexander d">Urine Red Medical Blood Cell Center </content>0-3 HPF<content styleCode="Carlota lics"> (0-3 HPF)</content> UNK 0-3 <content Saint styleCode="Reymundo Maxs d">Urine White Medical Blood Cell Center </content>0-3 HPF<content styleCode="Carlota lics"> (0-3 HPF)</content> Nitrite NEGATIVE <content Saint [Presence] in styleCode="[facility] Urine by Test d">Urine Medical strip Nitrite Center </content>NEGA TIVE <content styleCode="Carlota lics"> (NEGATIVE )</content> UNK NONE <content Saint styleCode="Reymundo Maxs d">Amorphous Medical [place] Center </content>FEW HPF<content styleCode="Carlota lics"> (NONE HPF)</content> UNK NONE SEEN <content Saint styleCode="Reymundo Maxs d">Urine Mucus Medical </content>MODE Center RATE HPF<content styleCode="Carlota lics"> (NONE SEEN HPF)</content> UNK NONE SEEN <content Saint styleCode="Reymundo Alexander d">Epithelial Medical Cell Center </content>2-5 HPF<content styleCode="Carlota lics"> (NONE SEEN HPF)</content> ID Date Data Source HematologyRou.[id number] 10/29/2019 09:52:00 PM EDT [facility] 0400 Name Value Range Interpretation Description Data Sup porting Code Source(s) Document(s ) Erythrocyte mean 80.0-100 <content [facility] corpuscular .0 styleCode="Bold Alexander volume [Entitic ">Mean Medical volume] by Corpuscular Center Automated count Volume </content>85.5 FL<content styleCode="Ital ics"> (80.0-100.0 FL)</content> Hemoglobin 12.3-16. Below low normal <content Saint [Mass/volume] in 0 styleCode="Bold Alexander Blood ">Hemoglobin Medical </content>12.1 Center G/DL L<content styleCode="Ital ics"> (12.3-16.0 G/DL)</content> Erythrocyte mean 26.0-34. <content [facility] corpuscular 0 styleCode="Bold Alexander hemoglobin ">Mean Medical [Entitic mass] Corposcular Center by Automated Hemoglobin count </content>28.3 PG<content styleCode="Ital ics"> (26.0-34.0 PG)</content> Hematocrit 36.0-46. <content Saint [Volume 0 styleCode="Bold Alexander Fraction] of ">Hematocrit Medical Blood by </content>36.6 Center Automated count %<content styleCode="Ital ics"> (36.0-46.0 %)</content> Erythrocytes 4.0-5.1 <content Saint [#/volume] in styleCode="Bold Alexander Blood by ">Red Blood Medical Automated count Cell Count Center </content>4.28 MCUMM<content styleCode="Ital ics"> (4.0-5.1 MCUMM)</content > Leukocytes 4.4-11.0 <content Saint [#/volume] in styleCode="Bold Alexander Blood by ">White Blood Medical Automated count Cell Count Center </content>8.65 KCUMM<content styleCode="Ital ics"> (4.4-11.0 KCUMM)</content > Platelets 130-400 <content Saint [#/volume] in styleCode="Bold Alexander Blood by ">Platelet Medical Automated count Count Center </content>287 KCUMM<content styleCode="Ital ics"> (130-400 KCUMM)</content > Platelet mean 8.0-11.0 <content Saint volume [Entitic styleCode="Bold Alexander volume] in Blood ">Mean Platelet Medical by Automated Volume Center count </content>9.8 FL<content styleCode="Ital ics"> (8.0-11.0 FL)</content> UNK 0 <content Saint styleCode="Bold Alexander ">Nucleated Red Medical Blood Cell Center </content>0.0 /100<content styleCode="Ital ics"> (0 /100)</content> Erythrocyte 11.5-14. <content Saint distribution 5 styleCode="Bold Alexander width [Ratio] by ">Red Cell Medical Automated count Distribution Center Width </content>14.5 %<content styleCode="Ital ics"> (11.5-14.5 %)</content> Erythrocyte mean 32.0-37. <content [facility] corpuscular 0 styleCode="Bold Alexander hemoglobin ">Mean Corpus. Medical concentration Hgb Center [Mass/volume] by Concentration Automated count (MCHC) </content>33.1 G/DL<content styleCode="Ital ics"> (32.0-37.0 G/DL)</content> UNK 0.0 <content Saint styleCode="Bold Alexander ">Nucleated Red Medical Blood Cell Center Count </content>0.00 KCUMM<content styleCode="Ital ics"> (0.0 KCUMM)</content > ID Date Data Source GFR(Creatinine).[id number] 10/29/2019 09:52:00 PM EDT [facility] 0-0400 Name Value Range Interpretation Code Description Data Genevieve rce(s) Supporting Document(s ) UNK > 60 <content [facility] styleCode="Bold"> Medical Cent er EGFR </content>112 GFR<content styleCode="Italic s"> (> 60 GFR)</content> ID Date Data Source [facility].[id number] 10/29/2019 09:52:00 PM EDT [facility] Name Value Range Interpretation Description Data Sup porting Code Source(s) Document(s ) Chloride 98-107 <content Saint [Moles/volume] styleCode="Reymundo Alexander in Serum or d">Chloride Medical Plasma </content>104 Center MEQ/L<content styleCode="Carlota lics"> (98-107 MEQ/L)</conten t> Potassium 3.5-5.3 <content Saint [Moles/volume] styleCode="Reymundo Alexander in Serum or d">Potassium Medical Plasma </content>4.1 Center MEQ/L<content styleCode="Carlota lics"> (3.5-5.3 MEQ/L)</conten t> Sodium 137-145 <content [facility] [Moles/volume] styleCode="Reymundo Alexander in Serum or d">Sodium Medical Plasma </content>137 Center MEQ/L<content styleCode="Carlota lics"> (137-145 MEQ/L)</conten t> Carbon 22-30 <content Saint dioxide, total styleCode="Reymundo Alexander [Moles/volume] d">Carbon Medical in Serum or Dioxide Center Plasma </content>27 MEQ/L<content styleCode="Carlota lics"> (22-30 MEQ/L)</conten t> Creatinine 0.5-1.3 <content Saint [Mass/volume] styleCode="Reymundo Alexander in Serum or d">Creatinine Medical Plasma </content>0.8 Center MG/DL<content styleCode="Carlota lics"> (0.5-1.3 MG/DL)</conten t> Calcium 8.4-10.2 <content [facility] [Mass/volume] styleCode="Reymundo Alexander in Serum or d">Calcium Medical Plasma </content>9.5 Center MG/DL<content styleCode="Carlota lics"> (8.4-10.2 MG/DL)</conten t> Glucose 74-106 <content Saint [Mass/volume] styleCode="Reymundo Alexander in Serum or d">Glucose Medical Plasma </content>76 Center MG/DL<content styleCode="Carlota lics"> (74-106 MG/DL)</conten t> UNK 7-17 <content Saint styleCode="Reymundo Alexander d">BUN Medical </content>13 Center MG/DL<content styleCode="Carlota lics"> (7-17 MG/DL)</conten t> UNK > 60 <content Saint styleCode="Reymundo Alexander d">EGFR Medical </content>112 Center GFR<content styleCode="Carlota lics"> (> 60 GFR)</content> ID Date Data Source [id number] 09/17/2019 03:20:00 PM EDT [facility] Name Value Range Interpretation Description Data Sup porting Code Source(s) Document(s ) SARS [facility] CORONAVIRUS 2 RNA This lab was ordered by [facility] and reported by [facility]. ID Date Data Source Urinalysis.[id number] 08/06/2019 02:37:00 PM EDT [facility] 0 Name Value Range Interpretation Description Data Sup porting Code Source(s) Document(s ) Color of Urine YELLOW <content Saint styleCode="Reymundo Maxs d">Color, Medical Urine Center </content>YELL OW <content styleCode="Carlota lics"> (YELLOW )</content> Glucose NEGATIVE <content [facility] [Mass/volume] styleCode="Reymundo Maxs in Urine by d">Urine Medical Test strip Glucose Center </content>NEGA TIVE MG/DL<content styleCode="Carlota lics"> (NEGATIVE MG/DL)</conten t> UNK NEGATIVE <content Saint styleCode="Reymundo Alexander d">Urine Medical Bilirubin Center </content>NEGA TIVE <content styleCode="Carlota lics"> (NEGATIVE )</content> Specific 1.015-1.02 <content Saint gravity of 5 styleCode="Reymundo Maxs Urine by Test d">Urine Medical strip Specific Center [place] </content>1.02 5 <content styleCode="Carlota lics"> (1.015-1.025 )</content> Ketones NEGATIVE <content Saint [Mass/volume] styleCode="Reymundo Maxs in Urine by d">Urine Medical Test strip Ketone Center </content>NEGA TIVE MG/DL<content styleCode="Carlota lics"> (NEGATIVE MG/DL)</conten t> UNK CLEAR <content Saint styleCode="Reymundo Alexander d">Urine Medical Clarity Center </content>MANI R <content styleCode="Carlota lics"> (CLEAR )</content> Urobilinogen 0.2-1.0 <content Saint [Units/volume] styleCode="Reymundo Maxs in Urine by d">Urine Medical Test strip Urobilinogen Center </content>0.2 MG/DL<content styleCode="Carlota lics"> (0.2-1.0 MG/DL)</conten t> Nitrite NEGATIVE <content Saint [Presence] in styleCode="Reymundo Alexander Urine by Test d">Urine Medical strip Nitrite Center </content>NEGA TIVE <content styleCode="Carlota lics"> (NEGATIVE )</content> pH of Urine by 4.5-8.0 <content Saint Test strip styleCode="Reymundo Alexander d">Urine pH Medical </content>6.0 Center <content styleCode="Carlota lics"> (4.5-8.0 )</content> Protein NEGATIVE <content Saint [Mass/volume] styleCode="Reymundo Munoz in Urine by d">Urine Medical Test strip Protein Center </content>NEGA TIVE MG/DL<content styleCode="Carlota lics"> (NEGATIVE MG/DL)</conten t> Hemoglobin NEGATIVE <content Saint [Presence] in styleCode="Reymundo Maxs Urine by Test d">Urine Blood Medical strip </content>TRAC Center E <content styleCode="Carlota lics"> (NEGATIVE )</content> UNK 0-3 <content Saint styleCode="Reymundo Alexander d">Urine White Medical Blood Cell Center </content>3-5 HPF<content styleCode="Carlota lics"> (0-3 HPF)</content> UNK 0-3 <content Saint styleCode="Reymundo Alexander d">Urine Red Medical Blood Cell Center </content>5 - 10 HPF<content styleCode="Carlota lics"> (0-3 HPF)</content> UNK NONE SEEN <content Saint styleCode="Reymundo Alexander d">Epithelial Medical Cell Center </content>5 - 10 HPF<content styleCode="Carlota lics"> (NONE SEEN HPF)</content> Leukocyte NEGATIVE <content Saint esterase styleCode="Reymundo Maxs [Presence] in d">Urine Medical Urine by Test Leukocyte Center strip </content>NEGA TIVE <content styleCode="Carlota lics"> (NEGATIVE )</content> UNK NONE SEEN <content Saint styleCode="Reymundo Alexander d">Urine Mucus Medical </content>FEW Center HPF<content styleCode="Carlota lics"> (NONE SEEN HPF)</content> ID Date Data Source Liver 08/06/2019 02:31:00 PM EDT [facility] Profile.[id number] Name Value Range Interpretation Description Data Sup porting Code Source(s) Document(s ) Aspartate 14-36 <content Saint aminotransferase styleCode="Bold"> Ishan hs [Enzymatic Aspartate Medical activity/volume] Aminotransferase Center in Serum or Plasma (AST) </content>23 IU/L<content styleCode="Italic s"> (14-36 IU/L)</content> Alanine 7-30 <content Saint aminotransferase styleCode="Bold"> Ishan hs [Enzymatic Alanine Medical activity/volume] Aminotransferase Center in Serum or Plasma (ALT) </content>12 IU/L<content styleCode="Italic s"> (7-30 IU/L)</content> Alkaline 38-126 <content Saint phosphatase styleCode="Bold"> Alexander [Enzymatic Alkaline Medical activity/volume] Phosphatase (ALP) Cente r in Serum or Plasma </content>97 IU/L<content styleCode="Italic s"> (38-126 IU/L)</content> Albumin 3.5-5.0 <content Saint [Mass/volume] in styleCode="Bold"> Ishan hs Serum or Plasma Albumin Medical </content>4.5 Center G/DL<content styleCode="Italic s"> (3.5-5.0 G/DL)</content> Bilirubin.total 0.2-1.3 <content Saint [Mass/volume] in styleCode="Bold"> Ishan hs Serum or Plasma Bilirubin Total Medical </content>0.3 Center MG/DL<content styleCode="Italic s"> (0.2-1.3 MG/DL)</content> ID Date Data Source HematologyRou.[id number] 08/06/2019 02:31:00 PM EDT [facility] 0400 Name Value Range Interpretation Description Data Sup porting Code Source(s) Document(s ) Leukocytes 4.4-11.0 <content Saint [#/volume] in styleCode="Bold [facility] Blood by ">White Blood Medical Automated count Cell Count Center </content>10.75 KCUMM<content styleCode="Ital ics"> (4.4-11.0 KCUMM)</content > Hematocrit 36.0-46. <content Saint [Volume 0 styleCode="Bold Alexander Fraction] of ">Hematocrit Medical Blood by </content>37.7 Center Automated count %<content styleCode="Ital ics"> (36.0-46.0 %)</content> Erythrocyte mean 80.0-100 <content Saint corpuscular .0 styleCode="Bold Alexander volume [Entitic ">Mean Medical volume] by Corpuscular Center Automated count Volume </content>84.0 FL<content styleCode="Ital ics"> (80.0-100.0 FL)</content> Hemoglobin 12.3-16. Below low normal <content Saint [Mass/volume] in 0 styleCode="Bold Alexander Blood ">Hemoglobin Medical </content>12.2 Center G/DL L<content styleCode="Ital ics"> (12.3-16.0 G/DL)</content> Erythrocytes 4.0-5.1 <content [facility] [#/volume] in styleCode="Bold Alexander Blood by ">Red Blood Medical Automated count Cell Count Center </content>4.49 MCUMM<content styleCode="Ital ics"> (4.0-5.1 MCUMM)</content > Erythrocyte mean 32.0-37. <content [facility] corpuscular 0 styleCode="Bold Alexander hemoglobin ">Mean Corpus. Medical concentration Hgb Center [Mass/volume] by Concentration Automated count (MCHC) </content>32.4 G/DL<content styleCode="Ital ics"> (32.0-37.0 G/DL)</content> Platelet mean 8.0-11.0 <content [facility] volume [Entitic styleCode="Bold Alexander volume] in Blood ">Mean Platelet Medical by Automated Volume Center count </content>9.7 FL<content styleCode="Ital ics"> (8.0-11.0 FL)</content> Erythrocyte 11.5-14. Above high <content [facility] distribution 5 normal styleCode="Bold Alexander width [Ratio] by ">Red Cell Medical Automated count Distribution Center Width </content>15.2 % H<content styleCode="Ital ics"> (11.5-14.5 %)</content> Erythrocyte mean 26.0-34. <content [facility] corpuscular 0 styleCode="Bold Alexander hemoglobin ">Mean Medical [Entitic mass] Corposcular Center by Automated Hemoglobin count </content>27.2 PG<content styleCode="Ital ics"> (26.0-34.0 PG)</content> Platelets 130-400 <content [facility] [#/volume] in styleCode="Bold Alexander Blood by ">Platelet Medical Automated count Count Center </content>354 KCUMM<content styleCode="Ital ics"> (130-400 KCUMM)</content > Monocytes 3.0-10.0 <content [facility] [#/volume] in styleCode="Bold Alexander Blood by ">Monocyte Medical Automated count </content>3.7 Center %<content styleCode="Ital ics"> (3.0-10.0 %)</content> Neutrophils 36-66 <content [facility] [#/volume] in styleCode="Bold Alexander Blood by ">Neutrophil Medical Automated count </content>53.7 Center %<content styleCode="Ital ics"> (36-66 %)</content> UNK 1.0-4.8 <content [facility] styleCode="Bold Alexander ">Lymphocyte Medical Count Center </content>4.32 KCUMM<content styleCode="Ital ics"> (1.0-4.8 KCUMM)</content > UNK 1.6-7.3 <content [facility] styleCode="Bold Alexander ">Neutrophil Medical Count Center </content>5.78 KCUMM<content styleCode="Ital ics"> (1.6-7.3 KCUMM)</content > Lymphocytes 24.0-44. <content [facility] [#/volume] in 0 styleCode="Bold Alexander Blood by ">Lymphocyte Medical Automated count </content>40.2 Center %<content styleCode="Ital ics"> (24.0-44.0 %)</content> UNK 0.0-0.3 <content Saint styleCode="Bold Alexander ">Basophil Medical Count Center </content>0.03 KCUMM<content styleCode="Ital ics"> (0.0-0.3 KCUMM)</content > Basophils 0.0-1.0 <content Saint [#/volume] in styleCode="Bold Alexander Blood by ">Basophil Medical Automated count </content>0.3 Center %<content styleCode="Ital ics"> (0.0-1.0 %)</content> UNK 0.2-0.9 <content [facility] styleCode="Bold Alexander ">Monocyte Medical Count Center </content>0.40 KCUMM<content styleCode="Ital ics"> (0.2-0.9 KCUMM)</content > UNK 0.0-0.6 <content Saint styleCode="Bold Alexander ">Eosinophil Medical Count Center </content>0.19 KCUMM<content styleCode="Ital ics"> (0.0-0.6 KCUMM)</content > Eosinophils 0-5.0 <content Saint [#/volume] in styleCode="Bold Alexander Blood by ">Eosinophil Medical Automated count </content>1.8 Center %<content styleCode="Ital ics"> (0-5.0 %)</content> UNK 0.0 <content Saint styleCode="Bold Alexander ">Nucleated Red Medical Blood Cell Center Count </content>0.00 KCUMM<content styleCode="Ital ics"> (0.0 KCUMM)</content > UNK 0 <content Saint styleCode="Bold Alexander ">Nucleated Red Medical Blood Cell Center </content>0.0 /100<content styleCode="Ital ics"> (0 /100)</content> UNK 0-0.1 <content Saint styleCode="Bold Alexander ">Immature Medical Granulocyte Center Count </content>0.03 KCUMM<content styleCode="Ital ics"> (0-0.1 KCUMM)</content > UNK < 1 <content Saint styleCode="Bold Alexander ">Immature Medical Granulocyte Center Ratio </content>0.3 %<content styleCode="Ital ics"> (< 1 %)</content> ID Date Data Source GFR(Creatinine).[id number] 08/06/2019 02:31:00 PM EDT [facility] 0-0400 Name Value Range Interpretation Code Description Data Genevieve rce(s) Supporting Document(s ) UNK > 60 <content [facility] styleCode="Bold"> Medical Cent er EGFR </content>112 GFR<content styleCode="Italic s"> (> 60 GFR)</content> ID Date Data Source CHMROUTINECCDA.[id number] 08/06/2019 02:31:00 PM EDT [facility] -0400 Name Value Range Interpretation Description Data Sup porting Code Source(s) Document(s ) UNK >= 1.0 <content [facility] styleCode="Bold Medical ">AG Ratio Center </content>1.3 <content styleCode="Ital ics"> (>= 1.0 )</content> Protein 6.3-8.2 <content [facility] [Mass/volum styleCode="Bold Medical e] in Serum ">Total Protein Center or Plasma </content>8.1 G/DL<content styleCode="Ital ics"> (6.3-8.2 G/DL)</content> UNK 2.3-3.5 Above high normal <content [facility] styleCode="Bold Medical ">Globulin Center </content>3.6 G/DL H<content styleCode="Ital ics"> (2.3-3.5 G/DL)</content> ID Date Data Source BMP.[id number] 08/06/2019 02:31:00 PM EDT [facility] Name Value Range Interpretation Description Data Sup porting Code Source(s) Document(s ) Potassium 3.5-5.3 <content [facility] [Moles/volume] in styleCode="Bold"> Florentino phs Serum or Plasma Potassium Medical </content>4.4 Center MEQ/L<content styleCode="Italic s"> (3.5-5.3 MEQ/L)</content> Sodium 137-145 <content [facility] [Moles/volume] in styleCode="Bold"> Florentino phs Serum or Plasma Sodium Medical </content>138 Center MEQ/L<content styleCode="Italic s"> (137-145 MEQ/L)</content> Chloride 98-107 <content [facility] [Moles/volume] in styleCode="Bold"> Florentino phs Serum or Plasma Chloride Medical </content>103 Center MEQ/L<content styleCode="Italic s"> (98-107 MEQ/L)</content> Carbon dioxide, 22-30 <content [facility] total styleCode="Bold"> Alexander [Moles/volume] in Carbon Dioxide Medical Serum or Plasma </content>28 Center MEQ/L<content styleCode="Italic s"> (22-30 MEQ/L)</content> UNK 7-17 <content [facility] styleCode="Bold"> Alexander BUN </content>12 Medical MG/DL<content Center styleCode="Italic s"> (7-17 MG/DL)</content> Creatinine 0.5-1.3 <content [facility] [Mass/volume] in styleCode="Bold"> Ishan hs Serum or Plasma Creatinine Medical </content>0.8 Center MG/DL<content styleCode="Italic s"> (0.5-1.3 MG/DL)</content> Glucose 74-106 <content [facility] [Mass/volume] in styleCode="Bold"> Ishan hs Serum or Plasma Glucose Medical </content>88 Center MG/DL<content styleCode="Italic s"> (74-106 MG/DL)</content> UNK > 60 <content [facility] styleCode="Bold"> Alexander EGFR Medical </content>112 Center GFR<content styleCode="Italic s"> (> 60 GFR)</content> Aspartate 14-36 <content [facility] aminotransferase styleCode="Bold"> Ishan hs [Enzymatic Aspartate Medical activity/volume] Aminotransferase Center in Serum or Plasma (AST) </content>23 IU/L<content styleCode="Italic s"> (14-36 IU/L)</content> Alanine 7-30 <content [facility] aminotransferase styleCode="Bold"> Ishan hs [Enzymatic Alanine Medical activity/volume] Aminotransferase Center in Serum or Plasma (ALT) </content>12 IU/L<content styleCode="Italic s"> (7-30 IU/L)</content> Calcium 8.4-10. <content [facility] [Mass/volume] in 2 styleCode="Bold"> Ishan hs Serum or Plasma Calcium Medical </content>9.9 Center MG/DL<content styleCode="Italic s"> (8.4-10.2 MG/DL)</content> Albumin 3.5-5.0 <content [facility] [Mass/volume] in styleCode="Bold"> Ishan hs Serum or Plasma Albumin Medical </content>4.5 Center G/DL<content styleCode="Italic s"> (3.5-5.0 G/DL)</content> Bilirubin.total 0.2-1.3 <content [facility] [Mass/volume] in styleCode="Bold"> Ishan hs Serum or Plasma Bilirubin Total Medical </content>0.3 Center MG/DL<content styleCode="Italic s"> (0.2-1.3 MG/DL)</content> Alkaline 38-126 <content [facility] phosphatase styleCode="Bold"> Alexander [Enzymatic Alkaline Medical activity/volume] Phosphatase (ALP) Cente r in Serum or Plasma </content>97 IU/L<content styleCode="Italic s"> (38-126 IU/L)</content> ID Date Data Source Urinalysis.[id number] 07/11/2019 02:45:00 PM EDT [facility] 0 Name Value Range Interpretation Description Data Sup porting Code Source(s) Document(s ) Color of Urine YELLOW <content Saint styleCode="Reymundo Munoz d">Color, Medical Urine Center </content>YELL OW <content styleCode="Carlota lics"> (YELLOW )</content> Specific 1.015-1.02 <content [facility] gravity of 5 styleCode="Reymundo Munoz Urine by Test d">Urine Medical strip Specific Center [place] </content>1.02 0 <content styleCode="Carlota lics"> (1.015-1.025 )</content> Ketones NEGATIVE <content [facility] [Mass/volume] styleCode="Reymundo Maxs in Urine by d">Urine Medical Test strip Ketone Center </content>NEGA TIVE MG/DL<content styleCode="Carlota lics"> (NEGATIVE MG/DL)</conten t> UNK CLEAR <content [facility] styleCode="Reymundo Alexander d">Urine Medical Clarity Center </content>MANI R <content styleCode="Carlota lics"> (CLEAR )</content> UNK NEGATIVE <content Saint styleCode="Reymundo Alexander d">Urine Medical Bilirubin Center </content>NEGA TIVE <content styleCode="Carlota lics"> (NEGATIVE )</content> Glucose NEGATIVE <content [facility] [Mass/volume] styleCode="Reymundo Maxs in Urine by d">Urine Medical Test strip Glucose Center </content>NEGA TIVE MG/DL<content styleCode="Carlota lics"> (NEGATIVE MG/DL)</conten t> Urobilinogen 0.2-1.0 <content Saint [Units/volume] styleCode="Reymundo Maxs in Urine by d">Urine Medical Test strip Urobilinogen Center </content>1.0 MG/DL<content styleCode="Carlota lics"> (0.2-1.0 MG/DL)</conten t> Protein NEGATIVE <content [facility] [Mass/volume] styleCode="Reymundo Maxs in Urine by d">Urine Medical Test strip Protein Center </content>NEGA TIVE MG/DL<content styleCode="Carlota lics"> (NEGATIVE MG/DL)</conten t> Hemoglobin NEGATIVE <content [facility] [Presence] in styleCode="Reymundo Maxs Urine by Test d">Urine Blood Medical strip </content>NEGA Center TIVE <content styleCode="Carlota lics"> (NEGATIVE )</content> pH of Urine by 4.5-8.0 <content Saint Test strip styleCode="Reymundo Alexander d">Urine pH Medical </content>7.5 Center <content styleCode="Carlota lics"> (4.5-8.0 )</content> Nitrite NEGATIVE <content [facility] [Presence] in styleCode="Reymundo Munoz Urine by Test d">Urine Medical strip Nitrite Center </content>NEGA TIVE <content styleCode="Carlota lics"> (NEGATIVE )</content> Leukocyte NEGATIVE <content [facility] esterase styleCode="Reymundo Munoz [Presence] in d">Urine Medical Urine by Test Leukocyte Center strip </content>NEGA TIVE <content styleCode="Carlota lics"> (NEGATIVE )</content> ID Date Data Source Microbiology.[id number] 07/11/2019 02:00:00 PM EDT [facility] 400 Name Value Range Interpretation Description Data Sup porting Code Source(s) Document(s ) UNK <item><conten [facility] asia Munoz styleCode="Jordin Medical ld">Culture Center Status </content>
<table><tbo dy><tr><td>Sp ecimen Number:</td>< td>[id number]< /td></tr><tr> <td>Sample Collection Date/Time: </td><td>07/10 2:00 PM</td></tr>< tr><td>Specim en Source:</td>< td>THROAT</td ></tr><tr><td >Culture Report:</td>< td>Culture in progress </td></tr><tr ><td>Throat-N ose Culture:</td> <td>Collectio n Plate Date: 07/11/2019 14:04 </td></tr><tr ><td>Culture Status:</td>< td>Preliminar y </td></tr></t body></table> </item> Streptococcus NEGATIVE <item><[facility] pyogenes Ag asia Munoz [Presence] in styleCode="Jordin Medical Unspecified ld">Rapid Center specimen by Strep A Immunoassay </content>
<table><tbo dy><tr><td>Sp ecimen Number:</td>< td>[id number]< /td></tr><tr> <td>Sample Collection Date/Time: </td><td>07/10 2:00 PM</td></tr>< tr><td>Specim en Source:</td>< td>THROAT</td ></tr><tr><td >Rapid Strep A:</td><td>NE GATIVE </td></tr></t body></table> </item> UNK <item><[facility] styleCode="[facility]">Culture Center Report </content>
<table><tbo dy><tr><td>Sp ecimen Number:</td>< td>[id number]< /td></tr><tr> <td>Sample Collection Date/Time: </td><td>07/10 2:00 PM</td></tr>< tr><td>Specim en Source:</td>< td>THROAT</td ></tr><tr><td >Throat-Nose Culture:</td> <td>Collectio n Plate Date: 07/11/2019 14:04 </td></tr><tr ><td>Culture Status:</td>< td>Preliminar y </td></tr><tr ><td>Culture Report:</td>< td>Culture in progress </td></tr></t body></table> </item> ID Date Data Source Microbiology.[id number] 07/07/2019 01:50:00 PM EDT [facility] 400 Name Value Range Interpretation Description Data Sup porting Code Source(s) Document(s ) UNK <item><[facility] styleCode="Jordin Medical ld">Culture Center Status </content>
<table><tbo dy><tr><td>Sp ecimen Number:</td>< td>[id number]< /td></tr><tr> <td>Sample Collection Date/Time: </td><td>2019 1:50 PM</td></tr>< tr><td>Specim en Source:</td>< td>THROAT</td ></tr><tr><td >Culture Report:</td>< td>Culture in progress </td></tr><tr ><td>Throat-N ose Culture:</td> <td>Collectio n Plate Date: 07/07/2019 13:50 </td></tr><tr ><td>Culture Status:</td>< td>Preliminar y </td></tr></t body></table> </item> UNK <item><humberto Munoz styleCode="[facility]ordin Medical ld">Culture Center Report </content>
<table><tbo dy><tr><td>Sp ecimen Number:</td>< td>[id number]< /td></tr><tr> <td>Sample Collection Date/Time: </td><td>2019 1:50 PM</td></tr>< tr><td>Specim en Source:</td>< td>THROAT</td ></tr><tr><td >Throat-Nose Culture:</td> <td>Collectio n Plate Date: 07/07/2019 13:50 </td></tr><tr ><td>Culture Status:</td>< td>Preliminar y </td></tr><tr ><td>Culture Report:</td>< td>Culture in progress </td></tr></t body></table> </item> Streptococcus NEGATIVE <item><humberto Munoz [Presence] in styleCode="[facility] Medical Unspecified ld">Rapid Center specimen by Strep A Immunoassay </content>
<table><tbo dy><tr><td>Sp ecimen Number:</td>< td>[id number]< /td></tr><tr> <td>Sample Collection Date/Time: </td><td>2019 1:50 PM</td></tr>< tr><td>Specim en Source:</td>< td>THROAT</td ></tr><tr><td >Rapid Strep A:</td><td>NE GATIVE </td></tr></t body></table> </item> ID Date Data Source [id number] 05/06/2019 09:25:00 AM EST LIBBY ([facility]) Name Value Range Interpretation Description Data Source(s ) Supporting Code Document(s ) Bacteria Final Upper LIBBY identified in report Respiratory ([place] Throat by Culture [facility] Aerobe culture [facility]) Bacteria RRF Result 1 LIBBY identified in ([place] Unspecified [facility] specimen by [facility]) Culture Note: Routine respiratory kelle ID Date Data Source Urinalysis.[id number] 04/21/2019 11:39:00 PM EST [facility] 0 Name Value Range Interpretation Description Data Sup porting Code Source(s) Document(s ) Color of Urine YELLOW <content Saint styleCode="Reymundo Alexander d">Color, Medical Urine Center </content>YELL OW <content styleCode="Carlota lics"> (YELLOW )</content> Glucose NEGATIVE <content Saint [Mass/volume] styleCode="Reymundo Munoz in Urine by d">Urine Medical Test strip Glucose Center </content>NEGA TIVE MG/DL<content styleCode="Carlota lics"> (NEGATIVE MG/DL)</conten t> UNK CLEAR <content Saint styleCode="Reymundo Alexander d">Urine Medical Clarity Center </content>MANI R <content styleCode="[place]ota lics"> (CLEAR )</content> pH of Urine by 4.5-8.0 <content Saint Test strip styleCode="Reymundo Alexander d">Urine pH Medical </content>6.5 Center <content styleCode="Carlota lics"> (4.5-8.0 )</content> Ketones NEGATIVE <content Saint [Mass/volume] styleCode="Reymundo Maxs in Urine by d">Urine Medical Test strip Ketone Center </content>NEGA TIVE MG/DL<content styleCode="Carlota lics"> (NEGATIVE MG/DL)</conten t> Hemoglobin NEGATIVE <content Saint [Presence] in styleCode="Reymundo Maxs Urine by Test d">Urine Blood Medical strip </content>TRAC Center E <content styleCode="[place]ota lics"> (NEGATIVE )</content> Specific 1.015-1.02 <content [facility] gravity of 5 styleCode="Reymundo Maxs Urine by Test d">Urine Medical strip Specific Center [place] </content>1.02 5 <content styleCode="Carlota lics"> (1.015-1.025 )</content> UNK NEGATIVE <content Saint styleCode="Reymundo Alexander d">Urine Medical Bilirubin Center </content>NEGA TIVE <content styleCode="Carlota lics"> (NEGATIVE )</content> Nitrite NEGATIVE <content Saint [Presence] in styleCode="Reymundo Maxs Urine by Test d">Urine Medical strip Nitrite Center </content>NEGA TIVE <content styleCode="[place] lics"> (NEGATIVE )</content> Leukocyte NEGATIVE <content Saint esterase styleCode="Reymundo Maxs [Presence] in d">Urine Medical Urine by Test Leukocyte Center strip </content>NEGA TIVE <content styleCode="[place]ota lics"> (NEGATIVE )</content> Protein NEGATIVE <content Saint [Mass/volume] styleCode="Reymundo Maxs in Urine by d">Urine Medical Test strip Protein Center </content>TRAC E MG/DL<content styleCode="Carlota lics"> (NEGATIVE MG/DL)</conten t> UNK 0-3 <content Saint styleCode="Reymundo Alexander d">Urine Red Medical Blood Cell Center </content>3-5 HPF<content styleCode="Carlota lics"> (0-3 HPF)</content> Urobilinogen 0.2-1.0 <content Saint [Units/volume] styleCode="Reymundo Munoz in Urine by d">Urine Medical Test strip Urobilinogen Center </content>0.2 MG/DL<content styleCode="Carlota lics"> (0.2-1.0 MG/DL)</conten t> UNK NONE SEEN <content Saint styleCode="Reymundo Maxs d">Epithelial Medical Cell Center </content>5 - 10 HPF<content styleCode="Carlota lics"> (NONE SEEN HPF)</content> UNK 0-3 <content Saint styleCode="Reymundo Alexander d">Urine White Medical Blood Cell Center </content>0-3 HPF<content styleCode="Carlota lics"> (0-3 HPF)</content> UNK NONE SEEN <content Saint styleCode="Reymundo Maxs d">Urine Mucus Medical </content>FEW Center HPF<content styleCode="Carlota lics"> (NONE SEEN HPF)</content> UNK NEGATIVE <content Saint styleCode="Reymundo Alexander d">Urine Medical Bacteria Center </content>FEW HPF<content styleCode="Carlota lics"> (NEGATIVE HPF)</content> ID Date Data Source JAYDONMROUTIDACCDA.[id number] 04/21/2019 11:39:00 PM [facility] -0500 Name Value Range Interpretation Description Data Sup porting Code Source(s) Document(s ) Cannabinoids <content Saint [Presence] in styleCode="Reymundo Munoz Urine by Screen d">Cannabinoid Medical method >50 ng/mL s Center </content>NEGA TIVE NG/ML (Reference Range: not available)<br/ > ID Date Data Source Liver 04/21/2019 11:19:00 PM [facility] Profile.[id number] Name Value Range Interpretation Description Data Sup porting Code Source(s) Document(s ) Alanine 7-30 <content Saint aminotransferase styleCode="Bold"> Ishan hs [Enzymatic Alanine Medical activity/volume] Aminotransferase Center in Serum or Plasma (ALT) </content>15 IU/L<content styleCode="Italic s"> (7-30 IU/L)</content> Aspartate 14-36 <content [facility] aminotransferase styleCode="Bold"> Ishan hs [Enzymatic Aspartate Medical activity/volume] Aminotransferase Center in Serum or Plasma (AST) </content>27 IU/L<content styleCode="Italic s"> (14-36 IU/L)</content> Bilirubin.total 0.2-1.3 <content Saint [Mass/volume] in styleCode="Bold"> Ishan hs Serum or Plasma Bilirubin Total Medical </content>0.4 Center MG/DL<content styleCode="Italic s"> (0.2-1.3 MG/DL)</content> Alkaline 38-126 <content Saint phosphatase styleCode="Bold"> Alexander [Enzymatic Alkaline Medical activity/volume] Phosphatase (ALP) Cente r in Serum or Plasma </content>109 IU/L<content styleCode="Italic s"> (38-126 IU/L)</content> Albumin 3.5-5.0 <content Saint [Mass/volume] in styleCode="Bold"> Ishan hs Serum or Plasma Albumin Medical </content>4.5 Center G/DL<content styleCode="Italic s"> (3.5-5.0 G/DL)</content> UNK 0.0-0.3 <content Saint styleCode="Bold"> Alexander Bilirubin, Direct Medical </content>< 0.2 Center MG/DL<content styleCode="Italic s"> (0.0-0.3 MG/DL)</content> ID Date Data Source HematologyRou.[id number] 04/21/2019 11:19:00 PM EST Chris nt [facility] 0500 Name Value Range Interpretation Description Data Sup porting Code Source(s) Document(s ) Erythrocyte mean 80.0-100 <content Saint corpuscular .0 styleCode="Bold Alexander volume [Entitic ">Mean Medical volume] by Corpuscular Center Automated count Volume </content>83.1 FL<content styleCode="Ital ics"> (80.0-100.0 FL)</content> Leukocytes 4.4-11.0 <content Saint [#/volume] in styleCode="Bold Alexander Blood by ">White Blood Medical Automated count Cell Count Center </content>9.85 KCUMM<content styleCode="Ital ics"> (4.4-11.0 KCUMM)</content > Hematocrit 36.0-46. Below low normal <content Saint [Volume 0 styleCode="Bold Alexander Fraction] of ">Hematocrit Medical Blood by </content>35.8 Center Automated count % L<content styleCode="Ital ics"> (36.0-46.0 %)</content> Hemoglobin 12.3-16. Below low normal <content Saint [Mass/volume] in 0 styleCode="Bold Alexander Blood ">Hemoglobin Medical </content>11.9 Center G/DL L<content styleCode="Ital ics"> (12.3-16.0 G/DL)</content> Erythrocyte mean 26.0-34. <content [facility] corpuscular 0 styleCode="Bold Alexanedr hemoglobin ">Mean Medical [Entitic mass] Corposcular Center by Automated Hemoglobin count </content>27.6 PG<content styleCode="Ital ics"> (26.0-34.0 PG)</content> Erythrocytes 4.0-5.1 <content Saint [#/volume] in styleCode="Bold Alexander Blood by ">Red Blood Medical Automated count Cell Count Center </content>4.31 MCUMM<content styleCode="Ital ics"> (4.0-5.1 MCUMM)</content > Erythrocyte 11.5-14. <content Saint distribution 5 styleCode="Bold Alexander width [Ratio] by ">Red Cell Medical Automated count Distribution Center Width </content>14.1 %<content styleCode="Ital ics"> (11.5-14.5 %)</content> Erythrocyte mean 32.0-37. <content [facility] corpuscular 0 styleCode="Bold Alexander hemoglobin ">Mean Corpus. Medical concentration Hgb Center [Mass/volume] by Concentration Automated count (MCHC) </content>33.2 G/DL<content styleCode="Ital ics"> (32.0-37.0 G/DL)</content> Platelet mean 8.0-11.0 <content Saint volume [Entitic styleCode="Bold Alexander volume] in Blood ">Mean Platelet Medical by Automated Volume Center count </content>10.2 FL<content styleCode="Ital ics"> (8.0-11.0 FL)</content> UNK 0 <content Saint styleCode="Bold Alexander ">Nucleated Red Medical Blood Cell Center </content>0.0 /100<content styleCode="Ital ics"> (0 /100)</content> Platelets 130-400 <content Saint [#/volume] in styleCode="Bold Alexander Blood by ">Platelet Medical Automated count Count Center </content>302 KCUMM<content styleCode="Ital ics"> (130-400 KCUMM)</content > UNK 0.0 <content Saint styleCode="Bold Alexander ">Nucleated Red Medical Blood Cell Center Count </content>0.00 KCUMM<content styleCode="Ital ics"> (0.0 KCUMM)</content > ID Date Data Source [facility].[id number] 04/21/2019 11:19:00 PM EST [facility] Name Value Range Interpretation Description Data Sup porting Code Source(s) Document(s ) Aspartate 14-36 <content Saint aminotransferase styleCode="Bold"> Ishan hs [Enzymatic Aspartate Medical activity/volume] Aminotransferase Center in Serum or Plasma (AST) </content>27 IU/L<content styleCode="Italic s"> (14-36 IU/L)</content> Alanine 7-30 <content Saint aminotransferase styleCode="Bold"> Ishan hs [Enzymatic Alanine Medical activity/volume] Aminotransferase Center in Serum or Plasma (ALT) </content>15 IU/L<content styleCode="Italic s"> (7-30 IU/L)</content> Alkaline 38-126 <content Saint phosphatase styleCode="Bold"> Alexander [Enzymatic Alkaline Medical activity/volume] Phosphatase (ALP) Cente r in Serum or Plasma </content>109 IU/L<content styleCode="Italic s"> (38-126 IU/L)</content> Bilirubin.total 0.2-1.3 <content Saint [Mass/volume] in styleCode="Bold"> Ishan hs Serum or Plasma Bilirubin Total Medical </content>0.4 Center MG/DL<content styleCode="Italic s"> (0.2-1.3 MG/DL)</content> Albumin 3.5-5.0 <content Saint [Mass/volume] in styleCode="Bold"> Ishan hs Serum or Plasma Albumin Medical </content>4.5 Center G/DL<content styleCode="Italic s"> (3.5-5.0 G/DL)</content> ID Date Data Source [id number] 04/10/2019 05:23:00 PM EST [facility] Name Value Range Interpretation Description Data Sup porting Code Source(s) Document(s ) Triglyceride < 150 <content [facility] [Mass/volume] in styleCode="[facility] Serum or Plasma d">Triglycerid Medical es Center </content>111 MG/DL<content styleCode="Carlota lics"> (< 150 MG/DL)</conten t> Cholesterol -<200 Above high normal <content Saint [Mass/volume] in styleCode="[facility] Serum or Plasma d">Cholesterol Medical </content>218 Center MG/DL H<content styleCode="Carlota lics"> (-<200 MG/DL)</conten t> UNK < 100 Above high normal <content Saint styleCode="Reymundo Alexander d">LDL-Cholest Medical megan Center </content>156 MG/DL H<content styleCode="Carlota lics"> (< 100 MG/DL)</conten t> UNK > 60 Below low normal <content Saint styleCode="Reymundo Alexander d">HDL- Medical Cholesterol Center </content>40 MG/DL L<content styleCode="Carlota lics"> (> 60 MG/DL)</conten t> ID Date Data Source HematologyRou.[id number] 04/10/2019 05:23:00 PM EST Chris nt [facility] 0500 Name Value Range Interpretation Description Data Sup porting Code Source(s) Document(s ) Leukocytes 4.4-11.0 <content Saint [#/volume] in styleCode="Bold Alexander Blood by ">White Blood Medical Automated count Cell Count Center </content>8.00 KCUMM<content styleCode="Ital ics"> (4.4-11.0 KCUMM)</content > Erythrocyte mean 32.0-37. <content Saint corpuscular 0 styleCode="Bold Alexander hemoglobin ">Mean Corpus. Medical concentration Hgb Center [Mass/volume] by Concentration Automated count (MCHC) </content>32.6 G/DL<content styleCode="Ital ics"> (32.0-37.0 G/DL)</content> Hemoglobin 12.3-16. <content Saint [Mass/volume] in 0 styleCode="Bold Alexander Blood ">Hemoglobin Medical </content>12.6 Center G/DL<content styleCode="Ital ics"> (12.3-16.0 G/DL)</content> Erythrocyte mean 80.0-100 <content Saint corpuscular .0 styleCode="Bold Alexander volume [Entitic ">Mean Medical volume] by Corpuscular Center Automated count Volume </content>84.6 FL<content styleCode="Ital ics"> (80.0-100.0 FL)</content> Hematocrit 36.0-46. <content Saint [Volume 0 styleCode="Bold Alexander Fraction] of ">Hematocrit Medical Blood by </content>38.6 Center Automated count %<content styleCode="Ital ics"> (36.0-46.0 %)</content> Erythrocytes 4.0-5.1 <content Saint [#/volume] in styleCode="Bold Alexander Blood by ">Red Blood Medical Automated count Cell Count Center </content>4.56 MCUMM<content styleCode="Ital ics"> (4.0-5.1 MCUMM)</content > Erythrocyte mean 26.0-34. <content Saint corpuscular 0 styleCode="Bold Alexander hemoglobin ">Mean Medical [Entitic mass] Corposcular Center by Automated Hemoglobin count </content>27.6 PG<content styleCode="Ital ics"> (26.0-34.0 PG)</content> Platelets 130-400 <content Saint [#/volume] in styleCode="Bold Alexander Blood by ">Platelet Medical Automated count Count Center </content>365 KCUMM<content styleCode="Ital ics"> (130-400 KCUMM)</content > UNK 0 <content Saint styleCode="Bold Alexander ">Nucleated Red Medical Blood Cell Center </content>0.0 /100<content styleCode="Ital ics"> (0 /100)</content> Erythrocyte 11.5-14. <content Saint distribution 5 styleCode="Davina Munoz width [Ratio] by ">Red Cell Medical Automated count Distribution Center Width </content>14.5 %<content styleCode="Ital ics"> (11.5-14.5 %)</content> UNK 0.0 <content Saint styleCode="Bold Alexander ">Nucleated Red Medical Blood Cell Center Count </content>0.00 KCUMM<content styleCode="Ital ics"> (0.0 KCUMM)</content > Platelet mean 8.0-11.0 <content Saint volume [Entitic styleCode="Bold Alexander volume] in Blood ">Mean Platelet Medical by Automated Volume Center count </content>9.8 FL<content styleCode="Ital ics"> (8.0-11.0 FL)</content> ID Date Data Source GFR(Creatinine).[id number] 04/10/2019 05:23:00 PM EST Chris nt [facility] 0-0500 Name Value Range Interpretation Code Description Data Genevieve rce(s) Supporting Document(s ) UNK > 60 <content [facility] styleCode="Bold"> Medical Cent er EGFR </content>97 GFR<content styleCode="Italic s"> (> 60 GFR)</content> ID Date Data Source Coagulation 04/10/2019 05:23:00 PM [facility] Rout.[id number] EST Name Value Range Interpretation Description Data Sup porting Code Source(s) Document(s ) UNK 9.0-13.0 <content Saint styleCode="Bold" Alexander >Protime Medical </content>11.5 Center SEC<content styleCode="Itali cs"> (9.0-13.0 SEC)</content> INR in 0.80-1.2 <content Saint Platelet poor 0 styleCode="Bold" Alexander plasma by >INR Medical Coagulation </content>1.04 Center assay #<content styleCode="Itali cs"> (0.80-1.20 #)</content> aPTT in 25.1-36. <content Saint Platelet poor 5 styleCode="Bold" Alexander plasma by >Partial Medical Coagulation Thromboplastin Center assay Time </content>35.3 SEC<content styleCode="Itali cs"> (25.1-36.5 SEC)</content> ID Date Data Source CardiacMarkers.[id number] 04/10/2019 05:23:00 PM EST Chris nt [facility] -0500 Name Value Range Interpretation Description Data Sup porting Code Source(s) Document(s ) Troponin < 0.034 <content Saint I.cardiac styleCode="Bold Alexander [Mass/volume ">Troponin I Medical ] in Serum </content>0.032 Center or Plasma NG/ML<content styleCode="Ital ics"> (< 0.034 NG/ML)</content > ID Date Data Source [facility].[id number] 04/10/2019 05:23:00 PM EST [facility] Name Value Range Interpretation Description Data Sup porting Code Source(s) Document(s ) UNK 7-17 Above high normal <content Saint styleCode="Reymundo Alexander d">BUN Medical </content>20 Center MG/DL H<content styleCode="Carlota lics"> (7-17 MG/DL)</conten t> Carbon 22-30 <content Saint dioxide, total styleCode="Reymundo Alexander [Moles/volume] d">Carbon Medical in Serum or Dioxide Center Plasma </content>28 MEQ/L<content styleCode="Carlota lics"> (22-30 MEQ/L)</conten t> Potassium 3.5-5.3 <content Saint [Moles/volume] styleCode="Reymundo Munoz in Serum or d">Potassium Medical Plasma </content>5.1 Center MEQ/L<content styleCode="Carlota lics"> (3.5-5.3 MEQ/L)</conten t> Chloride 98-107 <content Saint [Moles/volume] styleCode="Reymundo Maxs in Serum or d">Chloride Medical Plasma </content>102 Center MEQ/L<content styleCode="Carlota lics"> (98-107 MEQ/L)</conten t> Creatinine 0.5-1.3 <content [facility] [Mass/volume] styleCode="Reymundo Munoz in Serum or d">Creatinine Medical Plasma </content>0.9 Center MG/DL<content styleCode="Carlota lics"> (0.5-1.3 MG/DL)</conten t> Sodium 137-145 <content Saint [Moles/volume] styleCode="Reymundo Munoz in Serum or d">Sodium Medical Plasma </content>140 Center MEQ/L<content styleCode="Carlota lics"> (137-145 MEQ/L)</conten t> UNK > 60 <content Saint styleCode="Reymundo Munoz d">EGFR Medical </content>97 Center GFR<content styleCode="Carlota lics"> (> 60 GFR)</content> Glucose 74-106 <content Saint [Mass/volume] styleCode="Reymundo Munoz in Serum or d">Glucose Medical Plasma </content>86 Center MG/DL<content styleCode="Carlota lics"> (74-106 MG/DL)</conten t> Calcium 8.4-10.2 <content Saint [Mass/volume] styleCode="Reymundo Munoz in Serum or d">Calcium Medical Plasma </content>9.9 Center MG/DL<content styleCode="Carlota lics"> (8.4-10.2 MG/DL)</conten t> ID Date Data Source Urinalysis.[id number] 04/10/2019 05:16:00 PM EST Chris [facility] 0 Name Value Range Interpretation Description Data Sup porting Code Source(s) Document(s ) UNK CLEAR <content Saint styleCode="Reymundo Maxs d">Urine Medical Clarity Center </content>MANI R <content styleCode="Carlota lics"> (CLEAR )</content> Color of Urine YELLOW <content Saint styleCode="Reymundo Alexander d">Color, Medical Urine Center </content>YELL OW <content styleCode="Carlota lics"> (YELLOW )</content> UNK NEGATIVE <content Saint styleCode="Reymundo Maxs d">Urine Medical Bilirubin Center </content>NEGA TIVE <content styleCode="Carlota lics"> (NEGATIVE )</content> Specific 1.015-1.02 <content Saint gravity of 5 styleCode="Reymundo Munoz Urine by Test d">Urine Medical strip Specific Center [place] </content>1.02 0 <content styleCode="Carlota lics"> (1.015-1.025 )</content> Hemoglobin NEGATIVE <content Saint [Presence] in styleCode="Reymundo Maxs Urine by Test d">Urine Blood Medical strip </content>TRAC Center E <content styleCode="Carlota lics"> (NEGATIVE )</content> Glucose NEGATIVE <content Saint [Mass/volume] styleCode="Reymundo Alexander in Urine by d">Urine Medical Test strip Glucose Center </content>NEGA TIVE MG/DL<content styleCode="Carlota lics"> (NEGATIVE MG/DL)</conten t> Ketones NEGATIVE <content [facility] [Mass/volume] styleCode="Reymundo Alexander in Urine by d">Urine Medical Test strip Ketone Center </content>TRAC E MG/DL<content styleCode="Carlota lics"> (NEGATIVE MG/DL)</conten t> Protein NEGATIVE <content Saint [Mass/volume] styleCode="Reymundo Alexander in Urine by d">Urine Medical Test strip Protein Center </content>NEGA TIVE MG/DL<content styleCode="Carlota lics"> (NEGATIVE MG/DL)</conten t> pH of Urine by 4.5-8.0 <content Saint Test strip styleCode="Reymundo Alexander d">Urine pH Medical </content>6.5 Center <content styleCode="Carlota lics"> (4.5-8.0 )</content> Leukocyte NEGATIVE <content Saint esterase styleCode="Reymundo Alexander [Presence] in d">Urine Medical Urine by Test Leukocyte Center strip </content>NEGA TIVE <content styleCode="Carlota lics"> (NEGATIVE )</content> Urobilinogen 0.2-1.0 <content Saint [Units/volume] styleCode="Reymundo Alexander in Urine by d">Urine Medical Test strip Urobilinogen Center </content>0.2 MG/DL<content styleCode="Carlota lics"> (0.2-1.0 MG/DL)</conten t> Nitrite NEGATIVE <content Saint [Presence] in styleCode="Reymundo Maxs Urine by Test d">Urine Medical strip Nitrite Center </content>NEGA TIVE <content styleCode="Carlota lics"> (NEGATIVE )</content> UNK 0-3 <content Saint styleCode="Reymundo Alexander d">Urine Red Medical Blood Cell Center </content>0-3 HPF<content styleCode="Carlota lics"> (0-3 HPF)</content> UNK NEGATIVE <content Saint styleCode="Reymundo Alexander d">Urine Medical Bacteria Center </content>FEW HPF<content styleCode="Carlota lics"> (NEGATIVE HPF)</content> UNK NONE SEEN <content Saint styleCode="Reymundo Alexander d">Epithelial Medical Cell Center </content>> 50 HPF<content styleCode="Carlota lics"> (NONE SEEN HPF)</content> UNK 0-3 <content Saint styleCode="Reymundo Alexander d">Urine White Medical Blood Cell Center </content>0-3 HPF<content styleCode="Carlota lics"> (0-3 HPF)</content> ID Date Data Source [id number] 03/11/2019 12:00:00 AM [facility] ([facility]) Name Value Range Interpretation Description Data Source(s ) Supporting Code Document(s ) Bacteria Final Abnormal Upper LIBBY identified in report (applies to Respiratory ([place] [facility] by non-numeric Culture Neighborhood Aerobe culture results) [facility] Center) Bacteria BETAGB Abnormal Result 1 LIBBY identified in (applies to ([place] Unspecified non-numeric Neighborhood specimen by results) Health Center) Culture Note: Beta hemolytic Streptococcus, grou p BModerate growthPenicillin and ampicillin are drugs of choice for treatment ofbeta -hemolytic streptococcal infections. Susceptibility testing ofpenicillins and other beta-lactam agents approved by the FDA fortreatment of beta-hemolytic streptoco ccal infections need not beperformed routinely because nonsusceptible isolate s are extremelyrare in any beta-hemolytic streptococcus and have not been reported for Streptococcus pyogenes (group A). (CLSI) Procedure Social History Code Duration Value Status Description Data Source(s ) Smoking 01/21/2020 Former Smoker completed Former Smoker [facility] 09:16:00 PM EDT Medical C enter Smoking 01/21/2020 Former Smoker completed Former Smoker [facility] 08:18:00 PM EDT Medical C enter Smoking 01/21/2020 Former Smoker completed Former Smoker [facility] 07:09:00 PM EDT Medical C enter Smoking 01/21/2020 Former Smoker completed Former Smoker [facility] 06:53:00 PM EDT Medical C enter Smoking 12/20/2019 Former Smoker completed Former Smoker [facility] 02:41:00 PM EDT Medical C enter Smoking 12/20/2019 Former Smoker completed Former Smoker [facility] 02:30:00 PM EDT Medical C enter Smoking 12/20/2019 Former Smoker completed Former Smoker [facility] 02:21:00 PM EDT Medical C enter Smoking 10/29/2019 Former Smoker completed Former Smoker [facility] 10:59:00 PM EDT Medical C enter Smoking 10/29/2019 Former Smoker completed Former Smoker [facility] 10:35:00 PM EDT Medical C enter Smoking 10/29/2019 Former Smoker completed Former Smoker [facility] 07:39:00 PM EDT Medical C enter Smoking 10/16/2019 Former Smoker completed Former Smoker [facility] 05:25:00 PM EDT Medical C enter Smoking 10/16/2019 Former Smoker completed Former Smoker [facility] 03:57:00 PM EDT Medical C enter Smoking 09/17/2019 Occasional completed Occasional LIBBY (Moun t 04:41:01 PM EDT tobacco smoker tobacco smoker [place] (finding) (finding) [facility]) Smoking 08/06/2019 Former Smoker completed Former Smoker [facility] 03:08:00 PM EDT Medical C enter Smoking 08/06/2019 Former Smoker completed Former Smoker [facility] 12:27:00 PM EDT Medical C enter Smoking 07/11/2019 Former Smoker completed Former Smoker [facility] 02:46:00 PM EDT Medical C enter Smoking 07/11/2019 Former Smoker completed Former Smoker [facility] 01:40:00 PM EDT Medical C enter Smoking 07/07/2019 Former Smoker completed Former Smoker [facility] 01:43:00 PM EDT Medical C enter Smoking 07/07/2019 Former Smoker completed Former Smoker [facility] 01:40:00 PM EDT Medical C enter Smoking 07/07/2019 Former Smoker completed Former Smoker [facility] 01:28:00 PM EDT Medical C enter Smoking 06/30/2019 Former Smoker completed Former Smoker [facility] 01:13:00 PM EST Medical C enter Smoking 06/30/2019 Former Smoker completed Former Smoker [facility] 12:58:00 PM EST Medical C enter Smoking 06/26/2019 Ex-smoker completed Ex-smoker LIBBY (Moun t 12:10:02 PM EST (finding) (finding) [facility]) Smoking 04/22/2019 Former Smoker completed Former Smoker [facility] 10:57:00 AM EST Medical C enter Smoking 04/21/2019 Former Smoker completed Former Smoker [facility] 10:14:00 PM EST Medical C enter Smoking 04/21/2019 Former Smoker completed Former Smoker [facility] 09:45:00 PM EST Medical C enter Smoking 04/21/2019 Former Smoker completed Former Smoker [facility] 08:55:00 PM EST Medical C enter Smoking 04/15/2019 Former Smoker completed Former Smoker [facility]a sephs 01:07:00 AM EST Medical C enter Smoking 04/15/2019 Former Smoker completed Former Smoker [facility] 12:15:00 AM EST Medical C enter Smoking 04/15/2019 Former Smoker completed Former Smoker [facility] 12:06:00 AM EST Medical C enter Smoking 04/10/2019 Former Smoker completed Former Smoker [facility] 05:03:00 PM EST Medical C enter Smoking 04/10/2019 Former Smoker completed Former Smoker [facility] Venessa sephs 04:21:00 PM EST Medical C enter Smoking 03/30/2019 Daily Smoker completed Daily Smoker [facility] 02:08:00 PM EST Medical C enter Smoking 03/30/2019 Daily Smoker completed Daily Smoker [facility] 12:30:00 PM EST Medical C enter Smoking 03/30/2019 Daily Smoker completed Daily Smoker [facility] 12:23:00 PM EST Medical C enter Vital Signs ID Date Data Source UNK Name Value Range Interpretation Code Description Data Source(s) Body temperature 36.753166 36.988883 [facility] Respiratory rate 17 /min 17 /min [facility] Oxygen saturation 98 % 98 % [facility] in Arterial blood [facility] Center by Pulse oximetry Heart rate 80 /min 80 /min [facility] Diastolic blood 70 mm[Hg] 70 mm[Hg] [facility] Systolic blood 111 mm[Hg] 111 mm[Hg] [facility] Body weight 60.856615 60.829988 kg [facility] Measured kg Medical Center Body temperature 36.093213 36.936692 [facility] Respiratory rate 18 /min 18 /min [facility] Oxygen saturation 97 % 97 % [facility] in Arterial blood [facility] Center by Pulse oximetry Heart rate 74 /min 74 /min [facility] Body height 160.196048 160.426785 cm [facility] Diastolic blood 71 mm[Hg] 71 mm[Hg] [facility] pressure [facility] Systolic blood 106 mm[Hg] 106 mm[Hg] [facility] Center Body mass index 23.4 kg/m2 23.4 kg/m2 [facility] (BMI) [Ratio] Medical [facility] ter Body temperature 36.445141 36.060015 [facility] Respiratory rate 18 /min 18 /min [facility] Oxygen saturation 98 % 98 % [facility] in Arterial blood [facility] by Pulse oximetry Heart rate 87 /min 87 /min [facility] Diastolic blood 61 mm[Hg] 61 mm[Hg] [facility] pressure [facility] Systolic blood 104 mm[Hg] 104 mm[Hg] [facility] Diastolic blood 69 mm[Hg] 69 mm[Hg] eCW2 (Don nned pressure [facility]) Systolic blood 113 mm[Hg] 113 mm[Hg] eCW2 (Plan makayla pressure [facility]) Body mass index 24.44 kg/m2 24.44 kg/m2 eCW2 (P lanned (BMI) [Ratio] [facility]) Body weight 121 [lb_av] 121 [lb_av] eCW2 (Plann ed Measured [facility]) Body height 59 [in_us] 59 [in_us] eCW2 ([facility]) Body temperature 36.051793 36.353920 [facility] Respiratory rate 18 /min 18 /min [facility] Oxygen saturation 99 % 99 % [facility] J osephs in Arterial blood [facility] by Pulse oximetry Heart rate 78 /min 78 /min [facility] Diastolic blood 68 mm[Hg] 68 mm[Hg] [facility] Systolic blood 97 mm[Hg] 97 mm[Hg] [facility] Body weight 57.785666 57.248568 kg [facility] hs Measured kg Medical Center Body temperature 36.466751 36.861479 [facility] Respiratory rate 18 /min 18 /min [facility] Oxygen saturation 98 % 98 % [facility] in Arterial blood [facility] by Pulse oximetry Heart rate 80 /min 80 /min [facility] Body height 157.938612 157.796237 cm [facility] Diastolic blood 67 mm[Hg] 67 mm[Hg] [facility] Systolic blood 96 mm[Hg] 96 mm[Hg] [facility] Body mass index 23.1 kg/m2 23.1 kg/m2 [facility] (BMI) [Ratio] Medical [facility] ter Diastolic blood 71 mm[Hg] 71 mm[Hg] eCW2 (Don nned pressure [facility]) Systolic blood 103 mm[Hg] 103 mm[Hg] eCW2 (Plan makayla pressure [facility]) Body mass index 25.24 kg/m2 25.24 kg/m2 eCW2 (P lanned (BMI) [Ratio] [facility]) Body weight 125 [lb_av] 125 [lb_av] eCW2 (Plann ed Measured [facility]) Body height 59 [in_us] 59 [in_us] eCW2 ([facility]) PhenX - pain, 4 4 LIBBY ([facility]) Patient here c/o chest pain + 2 mos. Body surface area Derived from 1.55 m2 1.55 m2 [place] ([facility]) Patient here c/o chest pain + 2 mos. Body mass index (BMI) 23.8 kg/m2 23.8 kg/m2 [place] ([place] [Ratio] [facility]) Patient here c/o chest pain + 2 mos. Body weight 126 [lb_av] 126 [lb_av] [place] ([facility]) Patient here c/o chest pain + 2 mos. Body height 61 [in_us] 61 [in_us] LIBBY ([facility]) Patient here c/o chest pain + 2 mos. Body temperature 98.2 [degF] 98.2 [degF] [facility] ([facility]) Patient here c/o chest pain + 2 mos. Heart rate 95 /min 95 /min [place] ([facility]) Patient here c/o chest pain + 2 mos. Diastolic blood pressure 73 mm[Hg] 73 mm[Hg] [place] ([facility]) Patient here c/o chest pain + 2 mos. Systolic blood pressure 108 mm[Hg] 108 mm[Hg] [facility] Patient here c/o chest pain + 2 mos. Body weight Measured 63.142140 kg 63.243368 kg [facility] Body temperature 36.050176 [place] 36.004136 [facility] Respiratory rate 16 /min 16 /min [facility] Oxygen saturation in 97 % 97 % [facility] Arterial blood by Pulse C enter oximetry Heart rate 82 /min 82 /min [facility] Body height 157.331143 cm 157.763888 cm [facility] Diastolic blood pressure 65 mm[Hg] 65 mm[Hg] [facility] Systolic blood pressure 105 mm[Hg] 105 mm[Hg] [facility] Body mass index (BMI) 25.6 kg/m2 25.6 kg/m2 [facility] [Ratio] [facility] Body weight Measured 61.335969 kg 61.516704 kg [facility] Body temperature 36.530982 [place] 36.680288 [facility] Respiratory rate 20 /min 20 /min [facility] Oxygen saturation in 96 % 96 % [facility] Arterial blood by Pulse C enter oximetry Heart rate 98 /min 98 /min [facility] Body height 157.237773 cm 157.562280 cm [facility] Diastolic blood pressure 68 mm[Hg] 68 mm[Hg] [facility] Systolic blood pressure 112 mm[Hg] 112 mm[Hg] [facility] Body mass index (BMI) 24.7 kg/m2 24.7 kg/m2 [facility] [Ratio] [place] Body weight Measured 68.268394 kg 68.397357 kg [facility] Body temperature 36.198505 [place] 36.897946 [facility] Respiratory rate 18 /min 18 /min [facility] Oxygen saturation in 97 % 97 % [facility] Arterial blood by Pulse C enter oximetry Heart rate 86 /min 86 /min [facility] Body height 157.055590 cm 157.481205 cm [facility] Diastolic blood pressure 76 mm[Hg] 76 mm[Hg] [facility] Systolic blood pressure 102 mm[Hg] 102 mm[Hg] [facility] Body mass index (BMI) 27.4 kg/m2 27.4 kg/m2 [facility] [Ratio] Center Body weight Measured 60.212597 kg 60.575856 kg [facility] Body temperature 36.119639 [place] 36.755172 [facility] Respiratory rate 18 /min 18 /min [facility] Oxygen saturation in 99 % 99 % [facility] Arterial blood by Pulse C enter oximetry Heart rate 90 /min 90 /min [facility] Body height 157.416035 cm 157.497121 cm [facility] Diastolic blood pressure 53 mm[Hg] 53 mm[Hg] [facility] Systolic blood pressure 92 mm[Hg] 92 mm[Hg] [facility] Body mass index (BMI) 24.1 kg/m2 24.1 kg/m2 [facility] [Ratio] Center PhenX - pain, abdominal - 0 0 LIBBY ([place] type and intensity [facility]) protocol pt present cold symtomppt comes for CPE Body surface area Derived from 1.58 m2 1.58 m2 LIB[place] ([facility]) pt present cold symtomppt comes for CPE Body mass index (BMI) 24.9 kg/m2 24.9 kg/m2 [place] ([place] [Ratio] [facility]) pt present cold symtomppt comes for CPE Body weight 132 [lb_av] 132 [lb_av] LIB[place] ([facility]) pt present cold symtomppt comes for CPE Body height 61 [in_us] 61 [in_us] LIBBY ([facility]) pt present cold symtomppt comes for CPE Body temperature 98.5 [degF] 98.5 [degF] [facility] ([facility]) pt present cold symtomppt comes for CPE Heart rate 97 /min 97 /min LIBBY ([facility]) pt present cold symtomppt comes for CPE Diastolic blood pressure 72 mm[Hg] 72 mm[Hg] LIBBY ([facility]) pt present cold symtomppt comes for CPE Systolic blood pressure 109 mm[Hg] 109 mm[Hg] G REENWAY ([facility]) pt present cold symtomppt comes for CPE Diastolic blood pressure 67 mm[Hg] 67 mm[Hg] eCW2 ([facility] [employer]) Systolic blood pressure 100 mm[Hg] 100 mm[Hg] e CW2 ([facility]) Body mass index (BMI) 27.06 kg/m2 27.06 kg/m2 e CW2 ([facility]) Body weight Measured 134 [lb_av] 134 [lb_av] eC W2 ([facility]) Body height 59 [in_us] 59 [in_us] eCW2 ([facility]) PhenX - pain, abdominal - 5 5 [place] ([place] type and intensity protocol [facility]) pt is here due to not feeling well with coughing, throat pain, and difficulty breathing for about 1wk Body surface area Derived from 1.62 m2 1.62 m2 [place] ([facility]) pt is here due to not feeling well with coughing, throat pain, and difficulty breathing for about 1wk Body mass index (BMI) 26.4 kg/m2 26.4 kg/m2 GRE ENWAY ([facility]) pt is here due to not feeling well with coughing, throat pain, and difficulty breathing for about 1wk Body weight 139.6 [lb_av] 139.6 [lb_av] [place] ([facility]) pt is here due to not feeling well with coughing, throat pain, and difficulty breathing for about 1wk Body height 61 [in_us] 61 [in_us] [place] ([facility]) pt is here due to not feeling well with coughing, throat pain, and difficulty breathing for about 1wk Body temperature 97.9 [degF] 97.9 [degF] [facility] AY ([facility]) pt is here due to not feeling well with coughing, throat pain, and difficulty breathing for about 1wk Respiratory rate 18 /min 18 /min [place] ([facility]) pt is here due to not feeling well with coughing, throat pain, and difficulty breathing for about 1wk Heart rate 91 /min 91 /min [place] ([facility]) pt is here due to not feeling well with coughing, throat pain, and difficulty breathing for about 1wk Diastolic blood pressure 64 mm[Hg] 64 mm[Hg] [place] ([facility]) pt is here due to not feeling well with coughing, throat pain, and difficulty breathing for about 1wk Systolic blood pressure 99 mm[Hg] 99 mm[Hg] Sena WHITE ([facility]) pt is here due to not feeling well with coughing, throat pain, and difficulty breathing for about 1wk Body temperature 36.433458 [place] 36.773427 [facility] Respiratory rate 18 /min 18 /min [facility] Heart rate 79 /min 79 /min [facility] Diastolic blood pressure 47 mm[Hg] 47 mm[Hg] [facility] Systolic blood pressure 95 mm[Hg] 95 mm[Hg] [facility] Body temperature 36.573002 [place] 36.629685 [facility] Heart rate 81 /min 81 /min [facility] Diastolic blood pressure 64 mm[Hg] 64 mm[Hg] [facility] Systolic blood pressure 116 mm[Hg] 116 mm[Hg] [facility] Body temperature 36.227655 [place] 36.909008 [facility] Respiratory rate 18 /min 18 /min [facility] Oxygen saturation in 100 % 100 % [facility] Arterial blood by Pulse C enter oximetry Heart rate 83 /min 83 /min [facility] Diastolic blood pressure 69 mm[Hg] 69 mm[Hg] [facility] Systolic blood pressure 111 mm[Hg] 111 mm[Hg] [facility] Body temperature 36.472186 [place] 36.407718 [facility] Respiratory rate 18 /min 18 /min [facility] Oxygen saturation in 100 % 100 % [facility] Arterial blood by Pulse C enter oximetry Heart rate 74 /min 74 /min [facility] Diastolic blood pressure 60 mm[Hg] 60 mm[Hg] [facility] Systolic blood pressure 107 mm[Hg] 107 mm[Hg] [facility] Systolic blood pressure 103 mm[Hg] 103 mm[Hg] [facility] Body temperature 36.688947 [place] 36.331520 [facility] Respiratory rate 18 /min 18 /min [facility] Oxygen saturation in 99 % 99 % [facility] Arterial blood by Pulse C enter oximetry Heart rate 86 /min 86 /min [facility] Diastolic blood pressure 67 mm[Hg] 67 mm[Hg] [facility] Body weight Measured 65.878879 kg 65.687062 kg [facility] Respiratory rate 19 /min 19 /min [facility] Oxygen saturation in 100 % 100 % [facility] Arterial blood by Pulse C enter oximetry Body height 154.115666 cm 154.130425 cm [facility] Body mass index (BMI) 27.3 kg/m2 27.3 kg/m2 [facility] [Ratio] [place] Body temperature 35.169449 [place] 35.424428 [facility] Respiratory rate 17 /min 17 /min [facility] Oxygen saturation in 100 % 100 % [facility] Arterial blood by Pulse C enter oximetry Heart rate 81 /min 81 /min [facility] Diastolic blood pressure 78 mm[Hg] 78 mm[Hg] [facility] Systolic blood pressure 116 mm[Hg] 116 mm[Hg] [facility] Body temperature 36.104028 [place] 36.314040 [facility] Respiratory rate 16 /min 16 /min [facility] Oxygen saturation in 98 % 98 % [facility] Arterial blood by Pulse C enter oximetry Heart rate 95 /min 95 /min [facility] Body height 157.093548 cm 157.293966 cm [facility] Diastolic blood pressure 82 mm[Hg] 82 mm[Hg] [facility] Systolic blood pressure 108 mm[Hg] 108 mm[Hg] [facility] Body temperature 36.913370 [place] 36.036580 [facility] Respiratory rate 18 /min 18 /min [facility] Oxygen saturation in 98 % 98 % [facility] Arterial blood by Pulse C enter oximetry Heart rate 77 /min 77 /min [facility] Diastolic blood pressure 66 mm[Hg] 66 mm[Hg] [facility] Systolic blood pressure 110 mm[Hg] 110 mm[Hg] [facility] PhenX - pain, abdominal - 5 5 [place] ([facility]) protocol Pt is here of 4 days for flu simptoms al so sorethroat, period problems. Body surface area Derived from 1.64 m2 1.64 m2 [place] ([facility]) Pt is here of 4 days for flu simptoms al so sorethroat, period problems. Body mass index (BMI) 27.2 kg/m2 27.2 kg/m2 [place] ([facility]) Pt is here of 4 days for flu simptoms al so sorethroat, period problems. Body weight 144 [lb_av] 144 [lb_av] [facility] ( [facility]) Pt is here of 4 days for flu simptoms al so sorethroat, period problems. Body height 61 [in_us] 61 [in_us] [place] ([facility]) Pt is here of 4 days for flu simptoms al so sorethroat, period problems. Body temperature 98 [degF] 98 [degF] [place] ([facility]) Pt is here of 4 days for flu simptoms al so sorethroat, period problems. Heart rate 97 /min 97 /min [place] ([facility]) Pt is here of 4 days for flu simptoms al so sorethroat, period problems. Diastolic blood pressure 70 mm[Hg] 70 mm[Hg] [place] ([facility]) Pt is here of 4 days for flu simptoms al so sorethroat, period problems. Systolic blood pressure 108 mm[Hg] 108 mm[Hg] [facility] Pt is here of 4 days for flu simptoms al so sorethroat, period problems. Patient Treatment Plan of Care Planned Activity Planned Date Details Description Data Source (s) Ventolin HFA 108 (90 09/17/2019 12:00:00 [place] ([facility])MCG/ACT Inhalation AM EDT [facility]) ulipristal acetate 30 08/04/2019 12:00:00 eCW2 (Planned MG Oral Tablet [Ny] AM EDT Irma nunez [facility]) ulipristal acetate 30 08/04/2019 12:00:00 eCW2 (Planned MG Oral Tablet [Ny] AM EDT Parent nunez - [facility]) Terazol 3 0.8 % 05/26/2019 12:00:00 eCW2 (Planned AM [facility]) Cepacol Regular 05/05/2019 12:00:[address] ([place] Strength 3MG [facility] al[facility] Mouth[facility]Throat [facility]) Guaifenesin 20 MG/ML 05/05/2019 12:00:00 [place] ([place] Oral Solution [facility]) Ventolin HFA 108 (90 05/05/2019 12:00:00 [place] ([facility] [facility])MCG/ACT Inhalation AM [facility]) Loratadine 5 MG 03/10/2019 12:00:[address] ([place] Chewable Tablet [facility]) Cepacol Regular 03/10/2019 12:00:[address] ([place] Strength 3MG AM [facility] He alth Mouth/Throat L[facility]enge [facility]) Valtrex 500MG Oral 08/27/2018 12:00:00 GR EENWAY ([place] Tablet AM EDT [facility]th Center) Valtrex 500MG Oral 08/27/2018 12:00:00 GR EENWAY ([place] Tablet AM [facility] alth Center) Loratadine 5 MG 04/11/2018 12:00:[address] ([facility] Chewable Tablet [facility])
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
--- NOTE | 2020-02-09 19:57 | PDOC ---
History of Present Illness - General Chief Complaint: Injury Stated Complaint: PAIN/HEADACHE Time Seen by Provider: 02/09/20 19:11 - History of Present Illness Initial Comments: 02/09/20 19:56 PMH: as in HPI SH: see below Meds: In chart Allergies: Tob/Etoh/Rec drugs: PCP: Specialist: [employer] Consultant #: ROS: GENERAL/CONSTITUTIONAL: No fever or chills. No weakness. HEENT: No change in vision. No ear pain or discharge. No sore throat. CARDIOVASCULAR: No chest pain or shortness of breath RESPIRATORY: No cough, wheezing, or hemoptysis. GASTROINTESTINAL: No nausea, vomiting, diarrhea or constipation. GENITOURINARY: No dysuria, frequency, or change in urination. MUSCULOSKELETAL: No joint or muscle swelling or pain. No neck or back pain. SKIN: No rash NEUROLOGIC: No headache, vertigo, loss of consciousness, or change in strength/sensation. ENDOCRINE: No increased thirst. No abnormal weight change HEMATOLOGIC/LYMPHATIC: No anemia, easy bleeding, or history of blood clots. ALLERGIC/IMMUNOLOGIC: No hives or skin allergy. PE: GENERAL: AOx3; no apparent distress HEAD: NC/AT EYES: PERRLA, EOMI, sclera anicteric, conjunctiva clear ENT: Auricles normal, hearing grossly normal, nares patent, moist mucosa, oropharynx clear without exudates. NECK: Normal ROM, supple, no LAD, JVD, or masses CARDIO: RRR, normal S1/S2, no murmurs, rubs, or gallops. Peripheral pulses 2+ and equal bilaterally. LUNGS: No distress, speaks full sentences, CTA bilaterally ABDOMEN: Soft, nontender. No guarding, no rebound. No masses EXTREMITIES: Normal inspection, Normal range of motion, no edema. NEUROLOGICAL: CNII-XII intact. Normal speech. No focal sensorimotor deficits. Cerebellar testing intact. SKIN: Warm, Dry, normal turgor. No rashes or lesions noted Assessment and Plan Justyn Bishop, PGY1 Emergency Medicine Past History - Medical History Allergies/Adverse Reactions: Allergies Allergy/AdvReac Type Severity Reaction Status Date / Time No Known Allergies Allergy Verified 02/09/20 18:48 Home Medications: Ambulatory Orders Erythromycin 0.5% Eye Ointment [Erythromycin 0.5% Eye Ointment -] 1 applic OS TID #1 tube 01/22/20 Peg 400/Hypromellose/Glycerin [Dry Eye Relief Eye Drops] 1 drop OP Q6H #1 bottle 01/22/20 Peg 400/Hypromellose/Glycerin [Dry Eye Relief Eye Drops] 1 ml OP Q6H #1 bottle 01/22/20 Anemia: No Asthma: No Cancer: No Cardiac Disorders: No CVA: No COPD: No CHF: No Dementia: No Diabetes: No GI Disorders: No Disorders: No HTN: No Hypercholesterolemia: No Liver Disease: No Psychiatric Problems: Yes (BIPOLAR hasn't taken meds in some time) Seizures: No Thyroid Disease: No - Reproductive History Is Patient Now?: No (#): 1 Cervical CA: No Dysfunctional Uterine Bleeding: No Ectopic : No Endometrial CA: No Polycystic Ovaries: No Tubal Ligation: No - Immunization History Td Vaccination: Yes TDAP Vaccination: Yes Immunization Up to Date: Yes - Psycho-Social/Smoking History Smoking History: Former smoker Have you smoked in the past 12 months: No Number of Cigarettes Smoked Daily: 0 If you are a former smoker, when did you quit?: 2018 Information on smoking cessation initiated: No 'Breaking Loose' booklet given: 10/07/17 - Substance Abuse Hx (Audit-C & DAST Scrn) How often the patient has a drink containing alcohol: Never Score: In Men: 4 or > Positive; In Women: 3 or > Positive: 0 Screen Result (Pos requires Nsg. Audit-10AR): Negative In the last yr the pt used illegal drug/Rx for NonMed reason: No Score: Yes response is considered Positive: 0 Screen Result (Positive result requires Nsg. DAST-10): Negative *Physical Exam - Vital Signs Last Vital Signs Temp Pulse Resp BP Pulse Ox 98.1 F 74 16 99/65 100 02/09/20 18:48 02/09/20 18:48 02/09/20 18:48 02/09/20 18:48 02/09/20 18:48 Discharge - Discharge Information Clinical Impression/Diagnosis: Trauma - Follow up/Referral Referrals: Pk Guerra [Primary Care Provider] - - Patient Discharge Instructions - Post Discharge Activity
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
[2020-02-09] MEDS ORDERED: DIPHTH,PERTUSS(ACELL),TET 0.5 ML DISP.SYRIN IM ONE ×2 (20:55→21:02)
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
[2020-02-09 21:26] LABS: PH,URINE 6.5 (5.0-8.0); URINE APPEARANCE CLEAR; URINE BILIRUBIN NEGATIVE (NEGATIVE); URINE COLOR YELLOW; URINE GLUCOSE (UA) NEGATIVE (NEGATIVE); URINE KETONE TRACE (NEGATIVE); URINE LEUK ESTERASE NEGATIVE (NEGATIVE); URINE NITRITE NEGATIVE (NEGATIVE); URINE PROTEIN NEGATIVE (NEGATIVE)
[2020-02-09 21:47] LABS: BASO % 0.5 % (0-2.0); HEMATOCRIT 38.8 % (32.4-45.2); HEMOGLOBIN 12.7 GM/dL (10.7-15.3); MCH 28.3 pg (25.7-33.7); MCHC 32.6 g/dl (32.0-36.0); MEAN CELL VOLUME 86.7 fl (80-96); MEAN PLT VOLUME 8.5 fl (7.5-11.1); MONO % 5.2 % (3.8-10.2); NEUT % 38.3 % (42.8-82.8); PLATELET COUNT 268 K/MM3 (134-434); RBC 4.47 M/mm3 (3.60-5.2); RDW 14.4 % (11.6-15.6); WHITE BLOOD COUNT 7.5 K/mm3 (4.0-10.0)
[2020-02-09 22:05] LABS: ALK PHOS 122 U/L (45-117); ANION GAP 4 MMOL/L (8-16); BILIRUBIN,TOTAL 0.4 mg/dL (0.2-1); BLOOD UREA NITROGEN 11.6 mg/dL (7-18); CALCIUM 8.9 mg/dL (8.5-10.1); CHLORIDE 105 mmol/L (98-107); CO2 31 mmol/L (21-32); CREATININE 0.8 mg/dL (0.55-1.3); GLUCOSE,RANDOM 71 mg/dL (74-106); SGOT/AST 18 U/L (15-37); SGPT/ALT 24 U/L (13-61); SODIUM 140 mmol/L (136-145); TOT PROT 8.2 g/dl (6.4-8.2)
--- NOTE | 2020-02-10 10:04 | EKG ---
Test Reason : Blood Pressure : / mmHG Vent. Rate : 073 BPM Atrial Rate : 073 BPM P-R Int : 170 ms QRS Dur : 078 ms QT Int : 396 ms P-R-T Axes : 029 069 045 degrees QTc Int : 436 ms NORMAL SINUS RHYTHM NORMAL ECG WHEN COMPARED WITH ECG OF 14-OCT-2017 00:15, NO SIGNIFICANT CHANGE WAS FOUND Confirmed by MD Rankin Daniel ([id number]) on 02/10/2020 10:03:46 AM Referred By: Confirmed By:Markie Rankin MD
== END 2020-02-09 22:26 | disposition home or self-care (01) ==
LOC: JER 18:43
PROC: 3E0234Z Introduction of Serum, Toxoid and Vaccine into Muscle, Percutaneous Approach (ICD-10-PCS; principal; 2020-02-09)
DX: T14.90XA Injury, unspecified, initial encounter (principal)
CPT/HCPCS: 36415; 71046-TC-FY; 80053; 81003; 82550; 82553; 84484; 84703; 85025; 90715; 93005; 93010; 99285-25

== ENCOUNTER 2020-07-19 11:47 | Emergency (ER) | payer OTHER ==
[2020-07-19 12:02] VITALS: BMI 21.2
[2020-07-19] MEDS ORDERED: LORATADINE 10 MG TABLET PO ONE (12:25)
[2020-07-19] MEDS ORDERED: LORATADINE 10 MG TABLET ONE (12:37)
[2020-07-19 13:06] VITALS: BP 100/68; PULSE 68; TEMP 98.5
== END 2020-07-19 13:06 | disposition home or self-care (01) ==
LOC: JER 11:47
DX: J30.1 Allergic rhinitis due to pollen (principal)
CPT/HCPCS: 36415; 99283-25; C9803; U0003

== ENCOUNTER 2020-12-27 14:45 | Emergency (ER) | payer OTHER ==
[2020-12-27 15:09] VITALS: TEMP 98.2; BMI 20.9
[2020-12-27 16:36] LABS: BASO % 0.1 % (0-2.0); EOS % 1.5 % (0-4.5); HEMATOCRIT 39.5 % (32.4-45.2); HEMOGLOBIN 13.2 GM/dL (10.7-15.3); LYMPH % 29.3 % (8-40); MCH 28.6 pg (25.7-33.7); MCHC 33.4 g/dl (32.0-36.0); MEAN CELL VOLUME 85.7 fl (80-96); MEAN PLT VOLUME 8.3 fl (7.5-11.1); MONO % 6.7 % (3.8-10.2); NEUT % 62.4 % (42.8-82.8); PLATELET COUNT 282 10^3/uL (134-434); RBC 4.61 M/mm3 (3.60-5.2); RDW 14.4 % (11.6-15.6); WHITE BLOOD COUNT 10.8 K/mm3 (4.0-10.0)
[2020-12-27 16:54] LABS: CHLORIDE 102 mmol/L (98-107); SODIUM 136 mmol/L (136-145)
[2020-12-27 16:56] LABS: CALCIUM 9.4 mg/dL (8.5-10.1)
[2020-12-27 16:58] LABS: ANION GAP 7 MMOL/L (8-16); BLOOD UREA NITROGEN 10.2 mg/dL (7-18); CO2 28 mmol/L (21-32); GLUCOSE,RANDOM 78 mg/dL (74-106)
[2020-12-27 17:00] LABS: CREATININE 0.9 mg/dL (0.55-1.3); SGOT/AST 19 U/L (15-37); SGPT/ALT 18 U/L (13-61)
[2020-12-27 17:01] LABS: TOT PROT 8.3 g/dl (6.4-8.2)
[2020-12-27 17:03] LABS: ALK PHOS 85 U/L (45-117)
[2020-12-27 20:39] VITALS: BP 101/63; PULSE 97
== END 2020-12-27 20:40 | disposition home or self-care (01) ==
LOC: JER 14:45
DX: K52.9 Noninfective gastroenteritis and colitis, unspecified (principal); N83.8 Other noninflammatory disorders of ovary, fallopian tube and broad ligament
CPT/HCPCS: 36415; 71046-TC-FY; 74177-TC; 80053; 82272; 84702; 84703; 85025; 93005; 93010; 99285-25; Q9967

== ENCOUNTER 2022-02-16 21:09 | Emergency (ER) | payer OTHER ==
[2022-02-16 21:18] VITALS: RESP 20; BMI 29.8
[2022-02-16] MEDS ORDERED: SODIUM CHLORIDE 0.9% 1000 ML INFUS.BAG IV ONE (21:51)
[2022-02-16 23:02] LABS: EPI CELLS 20 /uL (0-25.1); HYALINE CASTS 3 /uL (0-3.1); PH,URINE 5.5 (5.0-8.0); URINE APPEARANCE CLEAR; URINE BACTERIA 386 /uL (0-1359); URINE BILIRUBIN NEGATIVE (NEGATIVE); URINE COLOR YELLOW; URINE GLUCOSE (UA) NEGATIVE (NEGATIVE); URINE KETONE TRACE (NEGATIVE); URINE LEUK ESTERASE NEGATIVE (NEGATIVE); URINE NITRITE NEGATIVE (NEGATIVE); URINE PROTEIN 1+ (NEGATIVE); URINE RBC 10 /uL (0-23.9); URINE WBC 10 /uL (0-25.8)
[2022-02-16 23:09] LABS: COCAINE, UR NEGATIVE (NEGATIVE); METHADONE, UR NEGATIVE (NEGATIVE); OPIATES, URI NEGATIVE (NEGATIVE); PHENCYCLIDINE,URINE NEGATIVE (NEGATIVE); URINE BARBITURATES NEGATIVE (NEGATIVE); URINE BENZODIAZEPINES NEGATIVE (NEGATIVE)
[2022-02-16 23:27] LABS: URINE AMPHETAMINES NEGATIVE (NEGATIVE)
[2022-02-16 23:51] LABS: BASO % 0.6 % (0-2.0); EOS % 0.2 % (0-4.5); HEMATOCRIT 41.1 % (32.4-45.2); HEMOGLOBIN 13.4 GM/dL (10.7-15.3); LYMPH % 17.6 % (8-40); MCH 28.3 pg (25.7-33.7); MCHC 32.7 g/dl (32.0-36.0); MEAN CELL VOLUME 86.6 fl (80-96); MEAN PLT VOLUME 7.7 fl (7.5-11.1); MONO % 6.2 % (3.8-10.2); NEUT % 75.4 % (42.8-82.8); PLATELET COUNT 322 10^3/uL (134-434); RBC 4.74 M/mm3 (3.60-5.2); RDW 14.2 % (11.6-15.6); WHITE BLOOD COUNT 12.6 K/mm3 (4.0-10.0)
[2022-02-17 00:15] LABS: CHLORIDE 104 mmol/L (98-107); SODIUM 138 mmol/L (136-145)
[2022-02-17] MEDS ORDERED: CEFTRIAXONE 1 GM in DEXTROSE 5%-WATER - 100 ML IVPB ONE (00:16)
[2022-02-17 00:17] LABS: ALBUMIN 3.8 g/dl (3.4-5.0); ANION GAP 7 MMOL/L (8-16); BLOOD UREA NITROGEN 16.1 mg/dL (7-18); CALCIUM 9.5 mg/dL (8.5-10.1); CO2 27 mmol/L (21-32); GLUCOSE,RANDOM 116 mg/dL (74-106)
[2022-02-17 00:20] LABS: CREATININE 1.1 mg/dL (0.55-1.3); SGOT/AST 23 U/L (15-37); SGPT/ALT 23 U/L (13-61)
[2022-02-17 00:22] LABS: BILIRUBIN,TOTAL 0.3 mg/dL (0.2-1); TOT PROT 8.1 g/dl (6.4-8.2)
[2022-02-17] MEDS ORDERED: CEFTRIAXONE 1 GM/50 ML BAG ONE (00:22)
[2022-02-17 00:23] LABS: ALK PHOS 99 U/L (45-117)
[2022-02-17] MEDS ORDERED: SODIUM CHLORIDE 1,000 ML IV STA (01:15)
[2022-02-17 01:29] VITALS: BP 105/61; PULSE 112; TEMP 98.2
== END 2022-02-17 02:59 | disposition home or self-care (01) ==
LOC: JER 21:09
PROC: 3E033GC Introduction of Other Therapeutic Substance into Peripheral Vein, Percutaneous Approach (ICD-10-PCS; principal; 2022-02-16)
DX: N39.0 Urinary tract infection, site not specified (principal)
CPT/HCPCS: 36415; 76775-TC; 80053; 80307; 81003; 84702; 85025; 87086; 93005; 93010; 99285-25

== ENCOUNTER 2022-04-04 11:02 | Emergency (ER) | payer OTHER ==
[2022-04-04 11:16] VITALS: BP 116/78; PULSE 118; RESP 18; BMI 30.9
[2022-04-04] MEDS ORDERED: DEXAMETHASONE SOD PHOSPHATE 10 MG/1 ML VIAL IM ONE (11:54)
[2022-04-04] MEDS ORDERED: KETOROLAC TROMETHAMINE 30 MG/1 ML VIAL IM ONE (11:54)
[2022-04-04] MEDS ORDERED: KETOROLAC TROMETHAMINE 30 MG/1 ML VIAL ONE (12:08)
[2022-04-04] MEDS ORDERED: DEXAMETHASONE SOD PHOSPHATE 10 MG/1 ML VIAL ONE (12:08)
== END 2022-04-04 13:42 | disposition home or self-care (01) ==
LOC: JER 11:02
PROC: 3E023GC Introduction of Other Therapeutic Substance into Muscle, Percutaneous Approach (ICD-10-PCS; principal; 2022-04-04)
DX: J09.X2 Influenza due to identified novel influenza A virus with other respiratory manifestations (principal)
CPT/HCPCS: 0241U-QW; 87651; 96372; 99284-25; J1100

== ENCOUNTER 2022-04-08 10:56 | Emergency (ER) | payer OTHER ==
[2022-04-08 11:41] VITALS: BP 95/68; PULSE 92; RESP 18; TEMP 97.8; BMI 30.5
== END 2022-04-08 14:58 | disposition home or self-care (01) ==
LOC: JER 10:56
DX: R51.9 Headache, unspecified (principal); R05.1 Acute cough; R09.81 Nasal congestion
CPT/HCPCS: 99281-25

== ENCOUNTER 2022-05-10 07:37 | Emergency (ER) | payer OTHER ==
[2022-05-10 07:43] VITALS: BP 105/76; PULSE 101; RESP 20; TEMP 98; BMI 34.3
[2022-05-10] MEDS ORDERED: DEXAMETHASONE SOD PHOSPHATE 10 MG/1 ML VIAL PO ONE (07:53)
[2022-05-10] MEDS ORDERED: DEXAMETHASONE SOD PHOSPHATE 10 MG/1 ML VIAL ONE (07:55)
== END 2022-05-10 08:04 | disposition home or self-care (01) ==
LOC: JERFT 07:37
DX: R05.9 Cough, unspecified (principal)
CPT/HCPCS: 99283-25; J1100

== ENCOUNTER 2022-12-08 20:12 | Emergency (ER) | payer BC, OTHER ==
[2022-12-08 20:17] VITALS: BP 90/73; PULSE 84; RESP 18; TEMP 98.7; BMI 27.4
[2022-12-08 21:17] LABS: EPI CELLS 15 /uL (0-25.1); HYALINE CASTS 1 /uL (0-3.1); PH,URINE 5.5 (5.0-8.0); URINE APPEARANCE CLEAR; URINE BACTERIA 176 /uL (0-1359); URINE BILIRUBIN NEGATIVE (NEGATIVE); URINE COLOR YELLOW; URINE GLUCOSE (UA) NEGATIVE (NEGATIVE); URINE KETONE NEGATIVE (NEGATIVE); URINE LEUK ESTERASE 1+ (NEGATIVE); URINE NITRITE NEGATIVE (NEGATIVE); URINE PROTEIN NEGATIVE (NEGATIVE); URINE RBC 52 /uL (0-23.9); URINE UROBILINOGEN 0.2 mg/dL (0.2-1.0); URINE WBC 20 /uL (0-25.8)
[2022-12-08 21:18] LABS: HCG,QUALITATIVE URINE Negative
[2022-12-08] MEDS ORDERED: IBUPROFEN 400 MG TABLET (FP) PO ONE ×2 (21:33→21:36)
[2022-12-08] MEDS ORDERED: ACETAMINOPHEN 325 MG TABLET (FP) PO ONE (21:33)
[2022-12-08] MEDS ORDERED: ACETAMINOPHEN 500 MG TABLET (FP) ONE (21:36)
[2022-12-09] MEDS ORDERED: DOXYCYCLINE HYCLATE 100 MG CAPSULE PO ONE ×2 (00:10→00:23)
== END 2022-12-09 00:35 | disposition home or self-care (01) ==
LOC: JERFT 20:12 → JER 20:12
DX: R10.31 Right lower quadrant pain (principal); N39.0 Urinary tract infection, site not specified; N83.201 Unspecified ovarian cyst, right side; N83.202 Unspecified ovarian cyst, left side
CPT/HCPCS: 76830-TC; 81003; 84703; 87077; 87086; 99284-25

== ENCOUNTER 2023-07-04 12:20 | Emergency (ER) | payer OTHER ==
[2023-07-04 12:38] VITALS: BP 120/77; PULSE 95; RESP 17; TEMP 98.6; BMI 22.3
== END 2023-07-04 15:12 | disposition home or self-care (01) ==
LOC: JERFT 12:20
DX: H92.01 Otalgia, right ear (principal)
CPT/HCPCS: 99283-25